=== PATIENT | female | born 1940 ===

== ENCOUNTER 2017-09-21 15:10 | Inpatient (IN) | payer MEDICARE, MEDICAID ==
[2017-09-21 15:10] VITALS: BMI 37.8
--- NOTE | 2017-09-21 16:17 | ED PDOC ---
HPI: SOB/CHF/COPD Time Seen by Provider: 09/21/17 15:39 Chief Complaint (Nursing): Shortness Of Breath Chief Complaint (Provider): Shortness of breath History Per: Patient History/Exam Limitations: no limitations Onset/Duration Of Symptoms: Persistent (2 weeks) Current Symptoms Are (Timing): Still Present Additional Complaint(s): 77yo female, with history of hypertension, CAD, diabetes, obesity, PVD, and surgical history of CABG, appendectomy and cholecystectomy, presents to ED for evaluation of shortness of breath ongoing for the past 2 weeks. Patient states she initially thought the symptoms were due to an allergic reaction and she was evaluated at the clinic, and given allergy medications along with an inhaler. Patient presents to ED today due to worsening shortness of breath even with taking the medications. She also reports bodyaches, a productive cough with clear sputum and reports associated chills and subjective fever as well. Patient also has chronic left leg swelling due to arterial insufficiency; patient states the swelling has mildly worsened as well. She denies any chest pain, rhinorrhea, hemoptysis, or sore throat. She has no other complaints. Past Medical History Reviewed: Historical Data, Nursing Documentation, Vital Signs Vital Signs: Last Vital Signs Temp 98.4 F 09/21/17 21:07 Pulse 61 09/21/17 21:07 Resp 19 09/21/17 21:07 BP 152/65 H 09/21/17 21:07 Pulse Ox 100 09/21/17 21:07 - Medical History PMH: CAD, COPD, Diabetes, HTN - Surgical History Surgical History: Appendectomy, CABG (x4), Cholecystectomy - Family History Family History: States: Unknown Family Hx - Social History Current smoker - smoking cessation education provided: No Alcohol: None Drugs: Denies - Home Medications Home Medications: Ambulatory Orders Medication Instructions Recorded ALPRAZolam [Xanax] 0.25 mg PO Q12 PRN 09/21/17 Amiodarone [Cordarone] 200 mg PO Q12 09/21/17 Atorvastatin [Lipitor] 20 mg PO HS 09/21/17 Budesonide/Formoterol Fumarate 2 puff IH Q12 09/21/17 [Symbicort 160-4.5 Mcg Inhaler] Clopidogrel [Plavix] 75 mg PO DAILY 09/21/17 Docusate [Colace] 100 mg PO DAILY PRN 09/21/17 Ergocalciferol (Vitamin D2) 50,000 unit PO TH 09/21/17 [Vitamin D2] Icosapent Ethyl [Vascepa] 1 gm PO Q12 09/21/17 Insulin Aspart, Recombinant 30 unit SC BID 09/21/17 [Novolog] Insulin Glargine, Recombina 40 unit SC HS 09/21/17 [Lantus] Iron Fumarate/Vit C/Vit B12/FA 1 cap PO DAILY 09/21/17 [Hematogen Forte Softgel] Levocetirizine Dihydrochloride 5 mg PO DAILY PRN 09/21/17 [Xyzal] Levothyroxine [Synthroid] 100 mcg PO DAILY 09/21/17 MetFORMIN [glucoPHAGE] 1,000 mg PO BID 09/21/17 Valsartan/Hydrochlorothiazide 1 tab PO DAILY 09/21/17 [Diovan Hct 160-25 mg Tablet] Zolpidem [Ambien] 10 mg PO HS 09/21/17 amLODIPine [Norvasc] 2.5 mg PO DAILY 09/21/17 - Allergies Allergies/Adverse Reactions: Allergies Allergy/AdvReac Type Severity Reaction Status Date / Time ciprofloxacin [From Cipro] Allergy RASH Verified 09/21/17 15:12 ciprofloxacin HCl Allergy RASH Verified 09/21/17 15:12 [From Cipro] Review of Systems ROS Statement: Except As Marked, All Systems Reviewed And Found Negative (as per HPI) Constitutional: Positive for: Fever (subjective), Chills ENT: Negative for: Nose Discharge, Throat Pain Cardiovascular: Negative for: Chest Pain Respiratory: Positive for: Cough, Shortness of Breath, Sputum. Negative for: Hemoptysis Musculoskeletal: Positive for: Other (left leg swelling) Physical Exam - Reviewed Nursing Documentation Reviewed: Yes Vital Signs Reviewed: Yes - Physical Exam Appears: Positive for: Non-toxic, In Acute Distress (mild respiratory distress) Head Exam: Positive for: ATRAUMATIC, NORMAL INSPECTION, NORMOCEPHALIC Skin: Positive for: Warm, Dry Respiratory: Positive for: Other (tachypneic) Pulses-Dorsalis Pedis (L): 0 (unable to palpate DP pulse) Pulses-Post. Tibialis (L): 0 (Unable to palpate PT pulse) Extremity: Positive for: Pedal Edema (non-pitting edema with yury erythema notred to left lower extremity), Capillary Refill (<2 seconds), Other (light touches intact left lower extremity) Neurologic/Psych: Positive for: Alert, Oriented - Laboratory Results Result Diagrams: 09/21/17 16:08 09/21/17 16:08 - ECG O2 Sat by Pulse Oximetry: 98 Medical Decision Making Medical Decision Making: Impression: Shortness of breath Differential diagnosis includes but not limited to: CHF, pneumonia, PE, influenza, bronchitis Plan: -- Labs -- CXR -- EKG -- Rapid Flu -- US Duplex venous left lower extremity -- US Duplex arterial left lower extremity 16:35 CXR FINDINGS: LUNGS: Vague homogeneous opacity overlying the left crispin thorax without complete obscuration left hemidiaphragm noted PLEURA: No pneumothorax. Small bilateral pleural effusions possible. Layering left pleural effusion not excluded. Left pleural parenchymal thickening seen on and the left lung base are all considerations. Summation of soft tissues also considerations patient's large body habitus. CARDIOVASCULAR: Cardiomegaly. Mild pulmonary venous congestion- the latter slightly increased since the prior exam. Midline sternotomy noted. OSSEOUS STRUCTURES: Midline sternotomy bilateral shoulder arthrosis VISUALIZED UPPER ABDOMEN: Normal. OTHER FINDINGS: None. IMPRESSION: Cardiomegaly and pulmonary venous congestion. Differential considerations for vague homogeneous increased density overlying the left lung base as above 18:10 Left lower extrm US Findings: There is normal flow, compressibility, and augmentation of the left common femoral, femoral, and popliteal veins. The left posterior tibial veins appear patent. Impression: No evidence of deep venous thrombosis in the left lower extremity. 20:[address] FINDINGS: LIMITATIONS: Artifact related to the patient's body habitus. Mild to moderate respiratory motion artifact. PULMONARY ARTERIES: Main pulmonary artery segment is mildly enlarged, a finding which can be a sign of pulmonary hypertension. This finding was also seen on the prior CT. Contrast opacification of the pulmonary arteries is adequate, and there are no filling defects seen to suggest pulmonary embolism. AORTA: Exam is nondiagnostic for the detection of aortic dissection because of suboptimal enhancement of the aorta. No evidence of thoracic aortic aneurysm. LUNGS: Findings suspicious for mild pulmonary vascular congestion. There is subtle, patchy groundglass density and smooth interlobular septal thickening in the upper lungs bilaterally. Small amount of dense consolidation in the posterior lung bases, abutting the pleural effusions bilaterally, most likely representing compressive atelectasis. PLEURAL SPACE: Small to moderate bilateral pleural effusions. No pneumothorax is seen. HEART: Heart appears mildly to moderately enlarged. Sternotomy wires and multiple mediastinal surgical clips noted, most likely from prior CABG. No evidence of significant pericardial effusion. BONES/JOINTS: No acute bony abnormality identified. SOFT TISSUES: Ventral hernia, in the midline anterior abdominal wall, with a wide neck, containing the distal stomach. No associated gastric obstruction. LYMPH NODES: No evidence of diffuse lymphadenopathy. GALLBLADDER AND BILE DUCTS: Mild biliary ductal dilatation, most likely related to the post cholecystectomy state. No radiopaque common bile duct stones are visualized. Recommend correlation with LFTs as clinically indicated. IMPRESSION: - Findings suspicious for mild pulmonary vascular congestion. - [id number] bilateral pleural effusions. - Otherwise, no evidence of significant acute process. - Cardiomegaly. - Findings suspicious for underlying pulmonary hypertension, with no evidence of pulmonary embolism. - See above for remaining findings. 21:15 --Patient's lab demonstrate anemia, cardiac enzymes negative. CT reviewed and consistent with CHF. Discussed with Dr. Pond, family practice resident, for hospitalization. Scribe Attestation: Documented by Marisa Garcia acting as a scribe for Lynda Ramos MD. Provider Attestation: All medical record entries made by the Scribe were at my direction and personally dictated by me. I have reviewed the chart and agree that the record accurately reflects my personal performance of the history, physical exam, medical decision making, and the department course for this patient. I have also personally directed, reviewed, and agree with the discharge instructions and disposition. Disposition - Disposition Forms: [employer] (German)
[2017-09-21 16:22] LABS: ABG ALLEN TEST YES; ARTERIAL BLOOD GAS HCO3 26.4 mmol/L (21-28); ARTERIAL BLOOD GAS O2 SAT 97.4 % (95-98); ARTERIAL BLOOD GAS PCO2 40 mm/Hg (35-45); ARTERIAL BLOOD GAS PH 7.43 (7.35-7.45); ARTERIAL BLOOD GAS PO2 76 mm/Hg (80-100); ARTERIAL BLOOD GAS TCO2 27.7 mmol/L (22-28)
--- NOTE | 2017-09-21 16:50 | RAD ---
HISTORY: sob COMPARISON: 09/16/2016 FINDINGS: LUNGS: Vague homogeneous opacity overlying the left crispin thorax without complete obscuration left hemidiaphragm noted PLEURA: No pneumothorax. Small bilateral pleural effusions possible. Layering left pleural effusion not excluded. Left pleural parenchymal thickening seen on and the left lung base are all considerations. Summation of soft tissues also considerations patient's large body habitus. CARDIOVASCULAR: Cardiomegaly. Mild pulmonary venous congestion- the latter slightly increased since the prior exam. Midline sternotomy noted. OSSEOUS STRUCTURES: Midline sternotomy bilateral shoulder arthrosis VISUALIZED UPPER ABDOMEN: Normal. OTHER FINDINGS: None. IMPRESSION: Cardiomegaly and pulmonary venous congestion. Differential considerations for vague homogeneous increased density overlying the left lung base as above
[2017-09-21 17:04] LABS: BASO # 0.1 K/uL (0.0-0.2); BASO % 0.9 % (0.0-2.0); EOS # 0.3 K/uL (0.0-0.7); EOS % 3.3 % (0.0-4.0); LYMPH # 1.9 K/uL (1.0-4.3); LYMPH % 20.8 % (20.0-40.0); MEAN CELL VOLUME 77.3 fl (81.0-99.0); MEAN CORPUSCULAR HEMOGLOBIN 22.9 pg (27.0-31.0); MEAN CORPUSCULAR HGB CONC 29.6 g/dL (33.0-37.0); MEAN PLATELET VOLUME 7.8 fl (7.2-11.7); MONO # 0.7 K/uL (0.0-0.8); MONO % 7.5 % (0.0-10.0); NEUT # 6.1 K/uL (1.8-7.0); NEUT % 67.5 % (50.0-75.0); NRBC % 0.2 % (0.0-0.0); RBC 3.94 Mil/uL (3.80-5.20)
[2017-09-21 17:23] LABS: ALB/GLOB RATIO 0.9 (1.0-2.1); ALBUMIN 3.7 g/dL (3.5-5.0); ALT/SGPT 30 U/L (9-52); AST/SGOT 33 U/L (14-36); BLOOD UREA NITROGEN 15 mg/dl (7-17); GFR AFRICAN-AMERICAN > 60; GFR NON-AFRICAN AMERICAN > 60
[2017-09-21 17:23] LABS: INR 1.1 (0.9-1.2); PARTIAL THROMBOPLASTIN TIME 30.5 Seconds (25.6-37.1); PROTHROMBIN TIME 12.1 Seconds (9.8-13.1)
[2017-09-21 17:32] LABS: B-TYPE NATRIURETIC PEPTIDE 703 pg/ml (0-900)
--- NOTE | 2017-09-21 18:12 | US ---
Left lower extremity ultrasound. Indication: Leg swelling Technique: Duplex ultrasound evaluation of the left lower extremity Comparison: Left lower extremity ultrasound performed 04/14/16 Findings: There is normal flow, compressibility, and augmentation of the left common femoral, femoral, and popliteal veins. The left posterior tibial veins appear patent. Impression: No evidence of deep venous thrombosis in the left lower extremity.
[2017-09-21] MEDS ORDERED: Iodixanol 320 MG/ML 100 ML BOTTLE IV ONE (18:32)
[2017-09-21] MEDS ORDERED: Sodium Chloride 0.9% 100 ML ONE (18:32)
--- NOTE | 2017-09-21 20:56 | CT ---
EXAM: CT Angiography Chest With Intravenous Contrast EXAM DATE/TIME: 09/21/2017 5:50 PM CLINICAL HISTORY: 77 years old, female; Signs and symptoms; Shortness of breath; Additional info: SOB R/O pe TECHNIQUE: Axial computed tomographic angiography images of the chest with intravenous contrast using pulmonary embolism protocol. All CT scans at this facility use one or more dose reduction techniques, viz.: automated exposure control; ma/kV adjustment per patient size (including targeted exams where dose is matched to indication; i.e. head); or iterative reconstruction technique. MIP reconstructed images were created and reviewed. Coronal and sagittal reformatted images were created and reviewed. CONTRAST: 95 mL of visipaque 320 administered intravenously. COMPARISON: Prior CT chest of 09/17/2013 FINDINGS: LIMITATIONS: Artifact related to the patient's body habitus. Mild to moderate respiratory motion artifact. PULMONARY ARTERIES: Main pulmonary artery segment is mildly enlarged, a finding which can be a sign of pulmonary hypertension. This finding was also seen on the prior CT. Contrast opacification of the pulmonary arteries is adequate, and there are no filling defects seen to suggest pulmonary embolism. AORTA: Exam is nondiagnostic for the detection of aortic dissection because of suboptimal enhancement of the aorta. No evidence of thoracic aortic aneurysm. LUNGS: Findings suspicious for mild pulmonary vascular congestion. There is subtle, patchy groundglass density and smooth interlobular septal thickening in the upper lungs bilaterally. Small amount of dense consolidation in the posterior lung bases, abutting the pleural effusions bilaterally, most likely representing compressive atelectasis. PLEURAL SPACE: Small to moderate bilateral pleural effusions. No pneumothorax is seen. HEART: Heart appears mildly to moderately enlarged. Sternotomy wires and multiple mediastinal surgical clips noted, most likely from prior CABG. No evidence of significant pericardial effusion. BONES/JOINTS: No acute bony abnormality identified. SOFT TISSUES: Ventral hernia, in the midline anterior abdominal wall, with a wide neck, containing the distal stomach. No associated gastric obstruction. LYMPH NODES: No evidence of diffuse lymphadenopathy. GALLBLADDER AND BILE DUCTS: Mild biliary ductal dilatation, most likely related to the post cholecystectomy state. No radiopaque common bile duct stones are visualized. Recommend correlation with LFTs as clinically indicated. IMPRESSION: - Findings suspicious for mild pulmonary vascular congestion. - [id number] bilateral pleural effusions. - Otherwise, no evidence of significant acute process. - Cardiomegaly. - Findings suspicious for underlying pulmonary hypertension, with no evidence of pulmonary embolism. - See above for remaining findings.
--- NOTE | 2017-09-21 21:43 | CP.PCM.HP ---
History of Present Illness - History of Present Illness History of Present Illness: "i cant breathe" 77 y/o morbidly obese female with PMHx remarkable for moderate peristent asthma , CAD s/p quad CABG, HTN, HLD, IDDM2, OA, and hypothyroidism presented to [facility] ED for evaluation of worsening SOB. Pt reports SOB started approx 1 week ago, without any inciting illness or event. She reports it gradually worsened and she was using her inhaler more and more often. She also reports that with the SOB, she developed a phelgmous sounding cough, with scant white phelgm production that would appear after long coughing fits. She reports that today, she the SOB was not improved with her inhaler, so she came in for evaluation. She denies any recent sick contacts, URI symptoms, fever/chills, headaches, changes in vision, CP/palpitations, orthopnea, exterional CP, paroxysmal nocturnal dyspnea, N/V/D/C, urinary symptoms, numbness/tingling. PMD: [facility], last visit 01/2017 -Cardio: John PMHx: Moderate Persistent asthma, hypothyroidism, CAD s/p CABG, HTN, IDDM2, HLD , OA, chronic left calf pain Meds: levothyroxine 88mcg, Lantus solostar 15 units SC HS, Novolog 7 units SC TID, Diovan HCT 160/25 QD, Lipitor 20mg QD, Plavix 75mg QD Metformin 1000mg BID, Monetelukast 10mg HS, ProAir HFA 108 ALL: Ciprofloxaxin (RASH) PSurgHx: Quad CABG, appendectomy, cholescteomy, SocialHx: hx of 1/3 PPD >20 years, quit several months ago. denies ETOH/Drug abuse FamilyHx: mother/father/brother all NH around 68 years LMP: >30 years ago Next of Kin: Daughter, be Code Status: DNI Present on Admission - Present on Admission Any Indicators Present on Admission: No History of DVT/PE: No History of Uncontrolled Diabetes: No Review of Systems - Constitutional Constitutional: absent: As Per HPI, Anorexia, Chills, Daytime Sleepiness, Excessive Sweating, Fatigue, Fever, Frequent Falls, Headache, Increased Appetite , Lethargy, Malaise, Night Sweats, Snoring, Sleep Apnea, Weight Gain, Weight Loss, Weakness, Other - EENT Eyes: absent: As Per HPI, Blind Spots, Blurred Vision, Change in Vision, Decreased Night Vision, Diplopia, Discharge, Dry Eye, Exophthalmos, Floaters, Irritation, Itchy Eyes, Loss of Peripheral Vision, Pain, Photophobia, Requires Corrective Lenses, Sees Flashes, Spots in Vision, Tunnel Vision, Other Visual Disturbances, Loss of Vision, Other Ears: absent: As Per HPI, Decreased Hearing, Ear Discharge, Ear Pain, Tinnitus, Abnormal Hearing, Disequilibrium, Dizziness, Other Nose/Mouth/Throat: absent: As Per HPI, Epistaxis, Nasal Congestion, Nasal Discharge, Nasal Obstruction, Nasal Trauma, Nose Pain, Post Nasal Drip, Sinus Pain, Sinus Pressure, Bleeding Gums, Change in Voice, Dental Pain, Dry Mouth, Dysphagia, Halitosis, Hoarsness, Lip Swelling, Mouth Lesions, Mouth Pain, Odynophagia, Sore Throat, Throat Swelling, Tongue Swelling, Facial Pain, Neck Pain, Neck Mass, Other - Cardiovascular Cardiovascular: absent: As Per HPI, Acrocyanosis, Chest Pain, Chest Pain at Rest , Chest Pain with Activity, Claudication, Diaphoresis, Dyspnea, Dyspnea on Exertion, Edema, Irregular Heart Rhythm, Pain Radiating to Arm/Neck/Jaw, Leg Edema, Leg Ulcers, Lightheadedness, Orthopnea, Palpitations, Paroxysmal Nocturnal Dyspnea, Pedal Edema, Radiating Pain, Rapid Heart Rate, Slow Heart Rate, Syncope, Other - Respiratory Respiratory: Cough, Dyspnea, Dyspnea on Exertion, Wheezing, Excessive Mucous Production. absent: As Per HPI, Hemoptysis, Snoring, Stridor, Pain on Inspiration, Chest Congestion, Change in Mucous Color, Pain with Coughing, Other - Gastrointestinal Gastrointestinal: absent: As Per HPI, Abdominal Pain, Belching, Bloating, Change in Bowel Habits, Change in Stool Character, Coffee Ground Emesis, Constipation, Cramping, Diarrhea, Dyspepsia, Dysphagia, Early Satiety, Excessive Flatus, Fecal Incontinence, Heartburn, Hematemesis, Hematochezia, Loose Stools, Melena, Nausea, Odynophagia, Temesmus, Vomiting, Other - Musculoskeletal Musculoskeletal: Arthralgias. absent: As Per HPI, Abnormal Gait, Atrophy, Back Pain, Deformity, Joint Swelling, Limited Range of Motion, Loss of Height, Muscle Cramps, Muscle Weakness, Myalgias, Neck Pain, Numbness, Radiating Pain into Limb, Stiffness, Tingling, Other - Integumentary Integumentary: absent: As Per HPI, Acne, Alopecia, Bleeding Lesions, Change in Hair, Change in Nails, Change in Pigmentation, Changing Lesions, Dry Skin, Erythema, Furuncle, Hirsutism, Lesions, New Lesions, Non-Healing Lesions, Photosensitivity, Pruritus, Rash, Skin Pain, Skin Ulcer, Sores, Striae, Swelling , Unusual Bruising, Wounds, Jaundice, Other - Neurological Neurological: absent: As Per HPI, Abnormal Gait, Abnormal Hearing, Abnormal Movements, Abnormal Speech, Behavioral Changes, Burning Sensations, Confusion, Convulsions, Disequilibrium, Dizziness, Numbness, Focal Weakness, Frequent Falls , Headaches, Lack of Coordination, Loss of Vision, Memory Loss, Paresthesias, Radicular Pain, Restless Legs, Sensory Deficit, Syncope, Tingling, Tremor, Vertigo, Weakness, Other Visual Disturbances, Other Past Patient History - Tetanus Immunizations Tetanus Immunization: Unknown - Past Social History Smoking Status: Current Some Days Smoker Alcohol: None Drugs: Denies Home Situation {Lives}: With Family - CARDIAC Hx Hypertension: Yes - PULMONARY Hx Chronic Obstructive Pulmonary Disease (COPD): Yes - ENDOCRINE/METABOLIC Hx Endocrine Disorders: Yes Hx Diabetes Mellitus Type 2: Yes - PSYCHIATRIC Hx Substance Use: No - SURGICAL HISTORY Hx Appendectomy: Yes Hx Cholecystectomy: Yes Hx Coronary Artery Bypass Graft: Yes (x4) - ANESTHESIA Hx Anesthesia: Yes Hx Anesthesia Reactions: No Meds Allergies/Adverse Reactions: Allergies Allergy/AdvReac Type Severity Reaction Status Date / Time ciprofloxacin [From Cipro] Allergy RASH Verified 09/21/17 15:12 ciprofloxacin HCl Allergy RASH Verified 09/21/17 15:12 [From Cipro] Physical Exam - Constitutional Appears: Non-toxic, No Acute Distress - Head Exam Head Exam: ATRAUMATIC, NORMAL INSPECTION, NORMOCEPHALIC - Eye Exam Eye Exam: EOMI, Normal appearance Pupil Exam: NORMAL ACCOMODATION, PERRL - ENT Exam ENT Exam: Mucous Membranes Moist, Normal Exam - Neck Exam Neck exam: Positive for: Full Rom. Negative for: Lymphadenopathy - Respiratory Exam Respiratory Exam: Accessory Muscle Use, Decreased Breath Sounds, Prolonged Expiratory Phase, Wheezes. absent: Chest Wall Tenderness, Clear to Auscultation Bilateral, Rales, Rhonchi, Respiratory Distress - Cardiovascular Exam Cardiovascular Exam: REGULAR RHYTHM, RRR, +S1, +S2. absent: Gallop, Irregular Rhythm, JVD, Rubs, Systolic Murmur - GI/Abdominal Exam GI & Abdominal Exam: Normal Bowel Sounds, Soft. absent: Tenderness Additional comments: truncal obesity - Extremities Exam Extremities exam: Positive for: normal capillary refill, normal inspection, tenderness (left popliteal fossa, pt states this is chronic, without acute change), pedal pulses present. Negative for: calf tenderness, pedal edema - Back Exam Back exam: NORMAL INSPECTION. absent: CVA tenderness (L), CVA tenderness (R) - Neurological Exam Neurological exam: Alert, CN II-XII Intact, Normal Gait, Oriented x3, Reflexes Normal - Psychiatric Exam Psychiatric exam: Normal Affect, Normal Mood - Skin Skin Exam: Dry, Intact, Normal Color, Warm Results - Vital Signs Recent Vital Signs: Last Vital Signs Temp 98.4 F 09/21/17 21:07 Pulse 61 09/21/17 21:07 Resp 19 09/21/17 21:07 BP 152/65 H 09/21/17 21:07 Pulse Ox 98 09/21/17 21:16 - Labs Result Diagrams: 09/21/17 16:08 09/21/17 16:08 Labs: Laboratory Results - last 24 hr 09/21/17 09/21/17 09/21/17 16:01 16:08 16:08 WBC 9.0 RBC 3.94 Hgb 9.0 L D Hct 30.4 L MCV 77.3 L D MCH 22.9 L MCHC 29.6 L RDW 21.0 H Plt Count 375 MPV 7.8 Neut % (Auto) 67.5 Lymph % (Auto) 20.8 Ray % (Auto) 7.5 Eos % (Auto) 3.3 Baso % (Auto) 0.9 Neut # (Auto) 6.1 Lymph # (Auto) 1.9 Ray # (Auto) 0.7 Eos # (Auto) 0.3 Baso # (Auto) 0.1 PT INR APTT D-Dimer, Quantitative pCO2 pO2 HCO3 ABG pH ABG Total CO2 ABG O2 Saturation ABG Base Excess Chao Test ABG Potassium A-a O2 Difference Glucose Lactate FiO2 Sodium 140 Potassium 4.3 Chloride 99 Carbon Dioxide 24 Anion Gap 21 H BUN 15 Creatinine 0.7 Est GFR ( Amer) > 60 Est GFR (Non-Af Amer) > 60 POC Glucose (mg/dL) 257 H Random Glucose 289 H Calcium 9.0 Phosphorus 2.5 Magnesium 1.7 Total Bilirubin 0.6 AST 33 ALT 30 Alkaline Phosphatase 137 H Troponin I < 0.0120 NT-Pro-B Natriuret Pep 703 Total Protein 7.7 Albumin 3.7 Globulin 4.0 H Albumin/Globulin Ratio 0.9 L Arterial Blood Potassium Influenza Typ A,B (EIA) Blood Type Antibody Screen BBK History Checked 09/21/17 09/21/17 09/21/17 16:08 16:14 16:32 WBC RBC Hgb Hct MCV MCH MCHC RDW Plt Count MPV Neut % (Auto) Lymph % (Auto) Ray % (Auto) Eos % (Auto) Baso % (Auto) Neut # (Auto) Lymph # (Auto) Ray # (Auto) Eos # (Auto) Baso # (Auto) PT INR APTT D-Dimer, Quantitative pCO2 40 pO2 76 L HCO3 26.4 ABG pH 7.43 ABG Total CO2 27.7 ABG O2 Saturation 97.4 ABG Base Excess 2.0 Chao Test Yes ABG Potassium 4.2 A-a O2 Difference 131.0 Glucose 279 H Lactate 2.2 H FiO2 36.0 Sodium 137.0 Potassium Chloride 106.0 Carbon Dioxide Anion Gap BUN Creatinine Est GFR ( Amer) Est GFR (Non-Af Amer) POC Glucose (mg/dL) Random Glucose Calcium Phosphorus Magnesium Total Bilirubin AST ALT Alkaline Phosphatase Troponin I NT-Pro-B Natriuret Pep Total Protein Albumin Globulin Albumin/Globulin Ratio Arterial Blood Potassium 4.2 Influenza Typ A,B (EIA) Negative for flu a/b Blood Type O POSITIVE Antibody Screen Negative BBK History Checked Patient has bt 09/21/17 17:00 WBC RBC Hgb Hct MCV MCH MCHC RDW Plt Count MPV Neut % (Auto) Lymph % (Auto) Ray % (Auto) Eos % (Auto) Baso % (Auto) Neut # (Auto) Lymph # (Auto) Ray # (Auto) Eos # (Auto) Baso # (Auto) PT 12.1 INR 1.1 APTT 30.5 D-Dimer, Quantitative 343 H pCO2 pO2 HCO3 ABG pH ABG Total CO2 ABG O2 Saturation ABG Base Excess Chao Test ABG Potassium A-a O2 Difference Glucose Lactate FiO2 Sodium Potassium Chloride Carbon Dioxide Anion Gap BUN Creatinine Est GFR ( Amer) Est GFR (Non-Af Amer) POC Glucose (mg/dL) Random Glucose Calcium Phosphorus Magnesium Total Bilirubin AST ALT Alkaline Phosphatase Troponin I NT-Pro-B Natriuret Pep Total Protein Albumin Globulin Albumin/Globulin Ratio Arterial Blood Potassium Influenza Typ A,B (EIA) Blood Type Antibody Screen BBK History Checked Assessment & Plan - Assessment and Plan (Free Text) Assessment: 77 y/o female with extensive medical history admitted for worsening SOB. Plan: 1) SOB/Cough -COPD? Asthma? CHF? Pulmonary HTN? -afebrile, no leukocytosis, no infiltrate on imaging -CT: b/l pleural effusion, no PE, cardiomegaly, pulmonary vascular congestion, and suspected pulmonary hypertension -diffuse wheezing on lung exam, with decreased O2 saturation and decreased breathe sounds bilaterally -known hx of moderate persistent asthma, but prolonged tobacco use as well -maintain POX 90-92% -2L NC -Solu-medrol 125mg IVP -Duo-nebs Q4H -Pro-BNP: 700, pt had prior recording of 1150 -Troponin x2: wnl, third value pending -monitor vitals -consider ECHO in AM as no hx of echo being performed -ABG: pending -blood/sputum cultures pending -repeat CBC/CMP in AM 2) IDDM2 -c/w home meds as ordered -monitor blood sugars -hypoglycemia protocol -Lispro coverage scale 3) Hypertension -monitor vitals -c/w home meds as ordered 4) Atrial Fibrillation -rate controlled, EKG reviewed, NSR with 1st degree AV block, QTc prolongation at 500 ms, no acute changes -c/w amiodarone as ordered -c/w plavix as ordered 5) Hypothyroidism -c/w home meds as ordered 6) Diet -heart healthy, low carb 7) Prophylaxis -Lovenox 50mg SC QD 2/2 to BMI 8) Code Status: -DNI
[2017-09-21] MEDS ORDERED: Albuterol-Ipratrop 3 mg / 0.5 (3 ml) UD INH PRN (21:45)
[2017-09-21] MEDS ORDERED: Azithromycin 500 MG in Sodium Chloride 0.9% 250 ML IVPB SCH (21:47)
[2017-09-21] MEDS ORDERED: Sodium Chloride 3% for Inhalation 4 ML VIAL.NEB IH PRN (21:53)
[2017-09-21] MEDS ORDERED: Glucagon Recombinant 1 mg Inj IM PRN (22:00)
[2017-09-21] MEDS ORDERED: Dextrose 50% SYRINGE Inj (50 ml) IV PRN (22:00)
[2017-09-21] MEDS ORDERED: INSULIN GLARGINE RECOMBINA 40 UNIT SC SCH (22:00)
[2017-09-21] MEDS: Insulin Lispro (humaLOG) 100 Units/ml Inj SC SCH (22:32)
[2017-09-22] MEDS: Insulin Lispro (humaLOG) 100 Units/ml Inj SC SCH ×4 (06:30→22:00)
[2017-09-22 07:15] LABS: HEMOGLOBIN 9.1 g/dL (12.0-16.0); MEAN CELL VOLUME 75.1 fl (81.0-99.0); MEAN CORPUSCULAR HEMOGLOBIN 23.1 pg (27.0-31.0); MEAN CORPUSCULAR HGB CONC 30.7 g/dL (33.0-37.0); RBC 3.94 Mil/uL (3.80-5.20)
--- NOTE | 2017-09-22 07:55 | CP.PCM.PN ---
Subjective - Date & Time of Evaluation Date of Evaluation: 09/22/17 Time of Evaluation: 09:35 - Subjective Subjective: Patient seen and evaluated at bedside this am; no acute events overnight. States that her breathing is improving, feels better. Denies chest pain, abdominal pain, leg pain. Objective - Vital Signs/Intake and Output Vital Signs (last 24 hours): Temp Pulse Resp BP Pulse Ox 97.8 F 71 18 146/56 L 93 L 09/22/17 04:58 09/22/17 04:58 09/22/17 04:58 09/22/17 04:58 09/22/17 04:58 - Medications Medications: Current Medications Albuterol/Ipratropium (Duoneb 3 Mg/0.5 Mg (3 Ml) Ud) 3 ml INH RQ4 PRN PRN Reason: Shortness of Breath Alprazolam (Xanax) 0.25 mg PO Q12 PRN PRN Reason: Anxiety Stop: 09/28/17 21:55 Amiodarone HCl (Cordarone) 200 mg PO Q12 [facility] Amlodipine Besylate (Norvasc) 2.5 mg PO DAILY [facility] Atorvastatin Calcium (Lipitor) 20 mg PO HS [facility] Last Admin: 09/22/17 00:43 Dose: Not Given Clopidogrel Bisulfate (Plavix) 75 mg PO DAILY [facility] Dextrose (Dextrose 50% Inj) 0 ml IV STAT PRN; Protocol PRN Reason: Hypoglycemia Protocol Dextrose (Glutose 15) 0 gm PO ONCE PRN; Protocol PRN Reason: Hypoglycemia Protocol Docusate Sodium (Colace Liquid) 100 mg NG BID PRN PRN Reason: Constipation Docusate Sodium (Colace) 100 mg PO DAILY PRN PRN Reason: Constipation Enoxaparin Sodium (Lovenox) 50 mg SC DAILY JAN PRN Reason: Protocol Ergocalciferol (Drisdol 50,000 Intl Units Cap) 1 cap PO TH JAN Glucagon (Glucagen Diagnostic Kit) 0 mg IM STAT PRN; Protocol PRN Reason: Hypoglycemia Protocol Home Med (Iron Fumarate/Vit C/Vit B12/Fa [Hematogen Forte Softgel]) 1 cap PO DAILY [facility] Hydrochlorothiazide (Hydrodiuril) 25 mg PO DAILY [facility] Insulin Detemir (Levemir) 30 units SC HS [facility] Insulin Human Lispro (Humalog) 0 units SC ACHS JAN PRN Reason: Protocol Last Admin: 09/22/17 06:30 Dose: 6 units Levothyroxine Sodium (Synthroid) 100 mcg PO DAILY@0630 [facility] Loratadine (Claritin) 10 mg PO DAILY PRN PRN Reason: Allergy symptoms Metformin HCl (Glucophage) 1,000 mg PO BID [facility] Ghfnc-7-Hzyl Ethyl Esters (Lovaza) 1 gm PO Q12 [facility] Ondansetron HCl (Zofran Inj) 4 mg IVP Q6 PRN PRN Reason: Nausea/Vomiting Valsartan (Diovan) 160 mg PO DAILY JAN Zolpidem Tartrate (Ambien) 10 mg PO HS [facility] Last Admin: 09/22/17 00:42 Dose: 10 mg - Labs Labs: 09/22/17 06:00 09/21/17 16:08 PT 12.1 Seconds (9.8-13.1) 09/21/17 17:00 INR 1.1 (0.9-1.2) 09/21/17 17:00 APTT 30.5 Seconds (25.6-37.1) 09/21/17 17:00 - Constitutional Appears: Non-toxic, No Acute Distress - Head Exam Head Exam: NORMAL INSPECTION - Eye Exam Eye Exam: Normal appearance - ENT Exam ENT Exam: Mucous Membranes Moist - Respiratory Exam Respiratory Exam: Decreased Breath Sounds, NORMAL BREATHING PATTERN. absent: Respiratory Distress - Cardiovascular Exam Cardiovascular Exam: REGULAR RHYTHM, +S1, +S2 - GI/Abdominal Exam GI & Abdominal Exam: Soft, Normal Bowel Sounds. absent: Tenderness - Extremities Exam Extremities Exam: Normal Inspection. absent: Calf Tenderness, Pedal Edema - Neurological Exam Neurological Exam: Alert, Awake - Skin Skin Exam: Dry, Intact, Warm Assessment and Plan - Assessment and Plan (Free Text) Assessment: 77 y/o morbidly obese female with PMHx of moderate peristent asthma, CAD s/p quad CABG, HTN, HLD, IDDM2, OA, hypothyroidism admitted for worsening SOB, possibly due to asthma vs CHF vs pulmonary htn. Clinically improving. Plan: 1) SOB/Cough - asthma exacerbation vs CHF vs Pulmonary HTN - Improved - Afebrile, no leukocytosis, no infiltrate on imaging - CT: b/l pleural effusion, no PE, cardiomegaly, pulmonary vascular congestion, and suspected pulmonary hypertension - 2L NC - Repeat CXR - persistent cardiomegaly, CHF - s/p solu-medrol 125mg IVP - Duo-nebs Q4H - Troponin neg x3 - monitor for acute changes 2) IDDM2 -c/w home meds as ordered -monitor blood sugars -hypoglycemia protocol -Lispro coverage scale 3) Hypertension -monitor vitals -c/w home meds as ordered 4) Atrial Fibrillation -rate controlled, EKG reviewed, NSR with 1st degree AV block, QTc prolongation at 500 ms, no acute changes -c/w amiodarone as ordered -c/w plavix as ordered 5) Hypothyroidism -c/w home meds as ordered 6) Diet -heart healthy, low carb 7) Prophylaxis -Lovenox 50mg SC QD 2/2 to BMI
[2017-09-22] MEDS: Levothyroxine 100 MCG TAB PO SCH (08:19)
[2017-09-22] MEDS: Omega-3-Acid Ethyl Esters 1 GM Cap PO SCH ×2 (08:21→21:45)
[2017-09-22] MEDS: Enoxaparin 60 mg Syringe SC SCH (08:22)
[2017-09-22 08:25] LABS: ALB/GLOB RATIO 0.9 (1.0-2.1); ALBUMIN 3.8 g/dL (3.5-5.0); ALT/SGPT 27 U/L (9-52); AST/SGOT 22 U/L (14-36); BLOOD UREA NITROGEN 17 mg/dl (7-17); CALCIUM 9.1 mg/dL (8.4-10.2); GFR AFRICAN-AMERICAN > 60; GFR NON-AFRICAN AMERICAN > 60
--- NOTE | 2017-09-22 10:26 | US ---
PROCEDURE: Duplex ultrasound of the left lower extremity arteries. HISTORY: leg swelling and h/o insufficiency r/o occlusion COMPARISON: None available. TECHNIQUE: Grayscale and duplex Doppler evaluation of the left common femoral, superficial femoral, popliteal, posterior tibial and dorsalis pedis arteries was performed.. FINDINGS: COMMON FEMORAL ARTERY: Patent. Maximal flow velocity of 105.0 cm/s. SUPERFICIAL FEMORAL ARTERY:Focal area of stenosis proximal left SFA. Maximal flow velocity of 241.3 cm/s. POPLITEAL ARTERY:Elevated peak systolic arterial pressures identified Maximal flow velocity of 158.5 cm/s. POSTERIOR TIBIAL ARTERY: Patent. Maximal flow velocity of 51.5 cm/s. DORSALIS PEDIS ARTERY: Patent. Maximal flow velocity of 55.3 cm/s. OTHER FINDINGS: None. IMPRESSION: Focal air active stenosis proximal left superficial femoral artery. Area of relative narrowing popliteal artery with adequate flow distally. No evidence of occlusive disease in the left lower extremity
--- NOTE | 2017-09-22 11:33 | CARD ---
APPROVED REPORT EKG Measurement Heart [id number] <Conclusion> Sinus rhythm with 1st degree AV block ST & T wave abnormality, consider lateral ischemia Abnormal ECG
--- NOTE | 2017-09-22 13:21 | CP.PCM.DIS ---
Provider - Provider Date of Admission: 09/21/17 21:11 Attending physician: Devorah Malik MD Hospital Course - Lab Results Lab Results: Most Recent Lab Values WBC 9.0 K/uL (4.8-10.8) 09/22/17 06:00 RBC 3.94 Mil/uL (3.80-5.20) 09/22/17 06:00 Hgb 9.1 g/dL (12.0-16.0) L 09/22/17 06:00 Hct 29.6 % (34.0-47.0) L 09/22/17 06:00 MCV 75.1 fl (81.0-99.0) L D 09/22/17 06:00 MCH 23.1 pg (27.0-31.0) L 09/22/17 06:00 MCHC 30.7 g/dL (33.0-37.0) L 09/22/17 06:00 RDW 20.0 % (11.5-14.5) H 09/22/17 06:00 Plt Count 364 K/uL (130-400) 09/22/17 06:00 MPV 7.8 fl (7.2-11.7) 09/21/17 16:08 Neut % (Auto) 67.5 % (50.0-75.0) 09/21/17 16:08 Lymph % (Auto) 20.8 % (20.0-40.0) 09/21/17 16:08 Morrow % (Auto) 7.5 % (0.0-10.0) 09/21/17 16:08 Eos % (Auto) 3.3 % (0.0-4.0) 09/21/17 16:08 Baso % (Auto) 0.9 % (0.0-2.0) 09/21/17 16:08 Neut # (Auto) 6.1 K/uL (1.8-7.0) 09/21/17 16:08 Lymph # (Auto) 1.9 K/uL (1.0-4.3) 09/21/17 16:08 Morrow # (Auto) 0.7 K/uL (0.0-0.8) 09/21/17 16:08 Eos # (Auto) 0.3 K/uL (0.0-0.7) 09/21/17 16:08 Baso # (Auto) 0.1 K/uL (0.0-0.2) 09/21/17 16:08 PT 12.1 Seconds (9.8-13.1) 09/21/17 17:00 INR 1.1 (0.9-1.2) 09/21/17 17:00 APTT 30.5 Seconds (25.6-37.1) 09/21/17 17:00 D-Dimer, Quantitative 343 ng/mlDDU (0-230) H 09/21/17 17:00 pCO2 40 mm/Hg (35-45) 09/21/17 16:14 pO2 76 mm/Hg (80-100) L 09/21/17 16:14 HCO3 26.4 mmol/L (21-28) 09/21/17 16:14 ABG pH 7.43 (7.35-7.45) 09/21/17 16:14 ABG Total CO2 27.7 mmol/L (22-28) 09/21/17 16:14 ABG O2 Saturation 97.4 % (95-98) 09/21/17 16:14 ABG Base Excess 2.0 mmol/L (-2.0-3.0) 09/21/17 16:14 Chao Test Yes 09/21/17 16:14 ABG Potassium 4.2 mmol/L (3.6-5.2) 09/21/17 16:14 A-a O2 Difference 131.0 mm/Hg 09/21/17 16:14 Sodium 137.0 mmol/L (132-148) 09/21/17 16:14 Chloride 106.0 mmol/L (98-107) 09/21/17 16:14 Glucose 279 mg/dL (65-105) H 09/21/17 16:14 Lactate 2.2 mmol/L (0.7-2.1) H 09/21/17 16:14 FiO2 36.0 % 09/21/17 16:14 Sodium 141 mmol/l (132-148) 09/22/17 06:00 Potassium 4.5 MMOL/L (3.6-5.0) 09/22/17 06:00 Chloride 98 mmol/L (98-107) 09/22/17 06:00 Carbon Dioxide 26 mmol/L (22-30) 09/22/17 06:00 Anion Gap 22 (10-20) H 09/22/17 06:00 BUN 17 mg/dl (7-17) 09/22/17 06:00 Creatinine 0.8 mg/dl (0.7-1.2) 09/22/17 06:00 Est GFR ( Amer) > 60 09/22/17 06:00 Est GFR (Non-Af Amer) > 60 09/22/17 06:00 POC Glucose (mg/dL) 379 mg/dL (65-110) H 09/22/17 11:27 Random Glucose 394 mg/dL (65-105) H 09/22/17 06:00 Lactic Acid 2.0 MMOL/L (0.7-2.1) 09/22/17 06:00 Calcium 9.1 mg/dL (8.4-10.2) 09/22/17 06:00 Phosphorus 2.5 mg/dl (2.5-4.5) 09/21/17 16:08 Magnesium 1.7 MG/DL (1.6-2.3) 09/21/17 16:08 Total Bilirubin 0.6 mg/dl (0.2-1.3) 09/22/17 06:00 AST 22 U/L (14-36) 09/22/17 06:00 ALT 27 U/L (9-52) 09/22/17 06:00 Alkaline Phosphatase 143 U/L (38-126) H 09/22/17 06:00 Troponin I < 0.0120 ng/mL (0.00-0.120) 09/22/17 07:19 NT-Pro-B Natriuret Pep 703 pg/ml (0-900) 09/21/17 16:08 Total Protein 7.8 G/DL (6.3-8.2) 09/22/17 06:00 Albumin 3.8 g/dL (3.5-5.0) 09/22/17 06:00 Globulin 4.0 gm/dL (2.2-3.9) H 09/22/17 06:00 Albumin/Globulin Ratio 0.9 (1.0-2.1) L 09/22/17 06:00 Arterial Blood Potassium 4.2 mmol/L (3.6-5.2) 09/21/17 16:14 Influenza Typ A,B (EIA) Negative for flu a/b (NEGATIVE) 09/21/17 16:32 Blood Type O POSITIVE 09/21/17 16:08 Antibody Screen Negative 09/21/17 16:08 BBK History Checked Patient has bt 09/21/17 16:08 Discharge Exam - Head Exam Head Exam: NORMAL INSPECTION Discharge Plan - Follow Up Plan Condition: FAIR Disposition: HOME/ ROUTINE
--- NOTE | 2017-09-22 14:05 | RAD ---
HISTORY: cough, SOB COMPARISON: September 21, 2017. TECHNIQUE: Chest PA and lateral FINDINGS: LUNGS: Pulmonary vascular congestion. PLEURA: No significant pleural effusion identified. No pneumothorax apparent. CARDIOVASCULAR: Persisting cardiomegaly/mild CHF. OSSEOUS STRUCTURES: No significant abnormalities. VISUALIZED UPPER ABDOMEN: Normal. OTHER FINDINGS: None. IMPRESSION: Mild CHF. No acute interval changes.
[2017-09-22] MEDS ORDERED: Simethicone 40 mg/0.6 ml Liquid (30 ml) PO PRN (15:52)
[2017-09-22] MEDS ORDERED: Ergocalciferol 50,000 Intl Units Cap PO SCH (21:54)
[2017-09-22] MEDS: Insulin Detemir 100 Units/ml Inj SC SCH (22:25)
[2017-09-23] MEDS: Insulin Lispro (humaLOG) 100 Units/ml Inj SC SCH ×4 (06:32→21:48)
[2017-09-23 06:42] LABS: HEMOGLOBIN 8.5 g/dL (12.0-16.0); MEAN CELL VOLUME 76.2 fl (81.0-99.0); MEAN CORPUSCULAR HGB CONC 30.2 g/dL (33.0-37.0); RBC 3.72 Mil/uL (3.80-5.20); WHITE BLOOD COUNT 13.6 K/uL (4.8-10.8)
[2017-09-23 06:56] LABS: BLOOD UREA NITROGEN 29 mg/dl (7-17); CALCIUM 9.3 mg/dL (8.4-10.2); GFR AFRICAN-AMERICAN > 60; GFR NON-AFRICAN AMERICAN 54
[2017-09-23] MEDS: Levothyroxine 100 MCG TAB PO SCH (07:49)
[2017-09-23] MEDS: Enoxaparin 60 mg Syringe SC SCH (09:05)
[2017-09-23] MEDS: Omega-3-Acid Ethyl Esters 1 GM Cap PO SCH ×2 (09:05→21:44)
--- NOTE | 2017-09-23 11:29 | CP.PCM.PN ---
Subjective - Date & Time of Evaluation Date of Evaluation: 09/23/17 Time of Evaluation: 07:30 - Subjective Subjective: Pt seen and evaluated at bedside this am; no acute complaints or new events overnight, but states she has some constipation. Denies difficulty breathing, chest pain, abdominal pain, leg pain. Objective - Vital Signs/Intake and Output Vital Signs (last 24 hours): Temp Pulse Resp BP Pulse Ox 97.7 F 60 18 137/67 97 09/23/17 08:00 09/23/17 09:02 09/23/17 08:00 09/23/17 09:02 09/23/17 08:00 - Medications Medications: Current Medications Albuterol/Ipratropium (Duoneb 3 Mg/0.5 Mg (3 Ml) Ud) 3 ml INH RQ4 PRN PRN Reason: Shortness of Breath Alprazolam (Xanax) 0.25 mg PO Q12 PRN PRN Reason: Anxiety Stop: 09/28/17 21:55 Amiodarone HCl (Cordarone) 200 mg PO Q12 [facility] Last Admin: 09/23/17 09:02 Dose: 200 mg Amlodipine Besylate (Norvasc) 2.5 mg PO DAILY [facility] Last Admin: 09/23/17 09:06 Dose: 2.5 mg Atorvastatin Calcium (Lipitor) 20 mg PO HS [facility] Last Admin: 09/22/17 21:45 Dose: 20 mg Clopidogrel Bisulfate (Plavix) 75 mg PO DAILY [facility] Last Admin: 09/23/17 09:07 Dose: 75 mg Dextrose (Dextrose 50% Inj) 0 ml IV STAT PRN; Protocol PRN Reason: Hypoglycemia Protocol Dextrose (Glutose 15) 0 gm PO ONCE PRN; Protocol PRN Reason: Hypoglycemia Protocol Docusate Sodium (Colace Liquid) 100 mg NG BID PRN PRN Reason: Constipation Docusate Sodium (Colace) 100 mg PO DAILY PRN PRN Reason: Constipation Enoxaparin Sodium (Lovenox) 50 mg SC DAILY [facility] PRN Reason: Protocol Last Admin: 09/23/17 09:05 Dose: 50 mg Ergocalciferol (Drisdol 50,000 Intl Units Cap) 1 cap PO TH [facility] Last Admin: 09/22/17 21:45 Dose: 1 cap Ferrous Sulfate (Feosol) 325 mg PO DAILY [facility] Last Admin: 09/23/17 09:03 Dose: 325 mg Glucagon (Glucagen Diagnostic Kit) 0 mg IM STAT PRN; Protocol PRN Reason: Hypoglycemia Protocol Hydrochlorothiazide (Hydrodiuril) 25 mg PO DAILY [facility] Last Admin: 09/23/17 09:05 Dose: 25 mg Insulin Detemir (Levemir) 30 units SC [facility] Last Admin: 09/22/17 22:25 Dose: 30 units Insulin Human Lispro (Humalog) 0 units SC [facility] PRN Reason: Protocol Last Admin: 09/23/17 06:32 Dose: 2 units Levothyroxine Sodium (Synthroid) 100 mcg PO DAILY@0630 [facility] Last Admin: 09/23/17 07:49 Dose: 100 mcg Loratadine (Claritin) 10 mg PO DAILY PRN PRN Reason: Allergy symptoms Metformin HCl (Glucophage) 1,000 mg PO BID [facility] Last Admin: 09/23/17 09:04 Dose: 1,000 mg Epcax-5-Twjd Ethyl Esters (Lovaza) 1 gm PO Q12 [facility] Last Admin: 09/23/17 09:05 Dose: 1 gm Simethicone (Mylicon Liq) 40 mg PO QID PRN PRN Reason: Flatulence Last Admin: 09/22/17 18:57 Dose: 40 mg Valsartan (Diovan) 160 mg PO DAILY [facility] Last Admin: 09/23/17 09:04 Dose: 160 mg Zolpidem Tartrate (Ambien) 10 mg PO [facility] Last Admin: 09/22/17 22:38 Dose: 10 mg - Labs Labs: 09/23/17 05:00 09/23/17 05:00 PT 12.1 Seconds (9.8-13.1) 09/21/17 17:00 INR 1.1 (0.9-1.2) 09/21/17 17:00 APTT 30.5 Seconds (25.6-37.1) 09/21/17 17:00 - Constitutional Appears: Non-toxic, No Acute Distress - Eye Exam Eye Exam: Normal appearance - ENT Exam ENT Exam: Mucous Membranes Moist - Respiratory Exam Respiratory Exam: Wheezes (scattered), NORMAL BREATHING PATTERN. absent: Respiratory Distress - Cardiovascular Exam Cardiovascular Exam: REGULAR RHYTHM, +S1, +S2 - GI/Abdominal Exam GI & Abdominal Exam: Soft, Normal Bowel Sounds. absent: Tenderness - Extremities Exam Extremities Exam: absent: Calf Tenderness, Pedal Edema - Neurological Exam Neurological Exam: Alert, Awake - Skin Skin Exam: Dry, Intact, Normal Color, Warm Assessment and Plan - Assessment and Plan (Free Text) Assessment: 77 y/o morbidly obese female with PMHx of moderate peristent asthma, CAD s/p quad CABG, HTN, HLD, IDDM2, OA, hypothyroidism admitted for worsening SOB, possibly due to asthma vs CHF vs pulmonary htn. Clinically improving. Plan: #) SOB/Cough, likely Asthma Exacerbation - Asthma exacerbation vs CHF vs Pulmonary HTN. 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 - Improved symptoms, but still mild wheezing - CT: b/l pleural effusion, no PE, cardiomegaly, pulmonary vascular congestion, and suspected pulmonary hypertension - 2L NC - 40 mg solumedrol Q12; s/p solu-medrol 125mg IVP in ED - Duo-nebs Q4H scheduled - Troponin neg x3 - Repeat CXR - persistent cardiomegaly, CHF - monitor for acute changes #) Anemia - Hgb 8.5 today; 11 as of Apr 2017 - FOBT today - Iron studies today (iron, tibc, ferritin, transferrin), retic count - Consider transfusion #) IDDM2 -c/w home meds as ordered -monitor blood sugars -hypoglycemia protocol -Lispro coverage scale #) Hypertension -monitor vitals -c/w home meds as ordered #) Atrial Fibrillation -rate controlled, EKG reviewed, NSR with 1st degree AV block, QTc prolongation at 500 ms, no acute changes -c/w amiodarone as ordered -c/w plavix as ordered #) Hypothyroidism -c/w home meds as ordered #) Diet -heart healthy, low carb #) Prophylaxis -Lovenox 50mg SC QD 2/2 to BMI
[2017-09-23 11:56] LABS: IRON 360 ug/dL (37-170)
[2017-09-23 12:05] LABS: % IRON SATURATION 98 % (20-55); TOTAL IRON BINDING CAPACITY 366 ug/dL (250-450)
[2017-09-23] MEDS: Albuterol-Ipratrop 3 mg / 0.5 (3 ml) UD INH SCH ×3 (15:31→23:26)
[2017-09-23] MEDS ORDERED: methylPREDNISolone 40 MG in Sodium Chloride 0.9% 50 ML IVPB SCH (21:00)
[2017-09-23] MEDS: Insulin Detemir 100 Units/ml Inj SC SCH (21:45)
[2017-09-23] MEDS: MethylPREDNISolone 40 mg Vial IVP SCH (21:47)
[2017-09-23 23:54] VITALS: RESP 18
[2017-09-24] MEDS: Albuterol-Ipratrop 3 mg / 0.5 (3 ml) UD INH SCH ×4 (04:38→15:39)
[2017-09-24] MEDS: Levothyroxine 100 MCG TAB PO SCH (06:35)
[2017-09-24] MEDS: Insulin Lispro (humaLOG) 100 Units/ml Inj SC SCH ×3 (06:36→16:30)
[2017-09-24] MEDS: Omega-3-Acid Ethyl Esters 1 GM Cap PO SCH (08:49)
[2017-09-24] MEDS: Enoxaparin 60 mg Syringe SC SCH (08:50)
[2017-09-24] MEDS: MethylPREDNISolone 40 mg Vial IVP SCH (08:55)
[2017-09-24 10:17] LABS: HEMOGLOBIN 10.4 g/dL (12.0-16.0); MEAN CELL VOLUME 78.1 fl (81.0-99.0); MEAN CORPUSCULAR HEMOGLOBIN 24.5 pg (27.0-31.0); MEAN CORPUSCULAR HGB CONC 31.4 g/dL (33.0-37.0); RBC 4.25 Mil/uL (3.80-5.20)
--- NOTE | 2017-09-24 14:31 | CP.PCM.DIS ---
Provider - Provider Date of Admission: 09/23/17 13:23 Attending physician: Devorah Malik MD Time Spent in preparation of Discharge (in minutes): 45 Diagnosis - Discharge Diagnosis (1) Asthma exacerbation Status: Acute Comment: Pt treated with DuoNebs and steroids with improvement. She is now stable for discharge and denies requiring refills. (2) Anemia Status: Acute Comment: Patient with chronic anemia, however due to symptomatic was transfused 2 units with appropriate Hgb rise by 2g and subjective improvement. Given 1 dose of lasix afterwards to prevent heart failure symptoms. Stable for discharge. (3) Diastolic heart failure Status: Acute Comment: Follows with Dr Lopez and last echo approximately 5 months prior and pt reports "everything was good". BNP was elevated alhtough lower than prior visit combined with a suggestion of increased vascular congestion on CXR. She was treated empirically with lasix. She is stable for discharge and follow up with Dr Lopez. Hospital Course - Lab Results Lab Results: Micro Results 09/22/17 11:56 Sputum Gram Stain - Final 09/22/17 11:56 Sputum Sputum Culture - Final NORMAL ORAL GOSIA 09/21/17 16:08 Blood-Venous Blood Culture - Preliminary NO GROWTH AFTER 48 HOURS 09/21/17 16:25 Blood-Venous Blood Culture - Preliminary NO GROWTH AFTER 48 HOURS Most Recent Lab Values WBC 12.0 K/uL (4.8-10.8) H 09/24/17 09:13 RBC 4.25 Mil/uL (3.80-5.20) 09/24/17 09:13 Hgb 10.4 g/dL (12.0-16.0) L 09/24/17 09:13 Hct 33.2 % (34.0-47.0) L 09/24/17 09:13 MCV 78.1 fl (81.0-99.0) L 09/24/17 09:13 MCH 24.5 pg (27.0-31.0) L 09/24/17 09:13 MCHC 31.4 g/dL (33.0-37.0) L 09/24/17 09:13 RDW 21.0 % (11.5-14.5) H 09/24/17 09:13 Plt Count 337 K/uL (130-400) 09/24/17 09:13 MPV 7.8 fl (7.2-11.7) 09/21/17 16:08 Neut % (Auto) 67.5 % (50.0-75.0) 09/21/17 16:08 Lymph % (Auto) 20.8 % (20.0-40.0) 09/21/17 16:08 [place] % (Auto) 7.5 % (0.0-10.0) 09/21/17 16:08 Eos % (Auto) 3.3 % (0.0-4.0) 09/21/17 16:08 Baso % (Auto) 0.9 % (0.0-2.0) 09/21/17 16:08 Neut # (Auto) 6.1 K/uL (1.8-7.0) 09/21/17 16:08 Lymph # (Auto) 1.9 K/uL (1.0-4.3) 09/21/17 16:08 [place] # (Auto) 0.7 K/uL (0.0-0.8) 09/21/17 16:08 Eos # (Auto) 0.3 K/uL (0.0-0.7) 09/21/17 16:08 Baso # (Auto) 0.1 K/uL (0.0-0.2) 09/21/17 16:08 Retic Count 3.8 % (0.5-1.5) H 09/23/17 11:39 PT 12.1 Seconds (9.8-13.1) 09/21/17 17:00 INR 1.1 (0.9-1.2) 09/21/17 17:00 APTT 30.5 Seconds (25.6-37.1) 09/21/17 17:00 D-Dimer, Quantitative 343 ng/mlDDU (0-230) H 09/21/17 17:00 pCO2 40 mm/Hg (35-45) 09/21/17 16:14 pO2 76 mm/Hg (80-100) L 09/21/17 16:14 HCO3 26.4 mmol/L (21-28) 09/21/17 16:14 ABG pH 7.43 (7.35-7.45) 09/21/17 16:14 ABG Total CO2 27.7 mmol/L (22-28) 09/21/17 16:14 ABG O2 Saturation 97.4 % (95-98) 09/21/17 16:14 ABG Base Excess 2.0 mmol/L (-2.0-3.0) 09/21/17 16:14 Chao Test Yes 09/21/17 16:14 ABG Potassium 4.2 mmol/L (3.6-5.2) 09/21/17 16:14 A-a O2 Difference 131.0 mm/Hg 09/21/17 16:14 Sodium 137.0 mmol/L (132-148) 09/21/17 16:14 Chloride 106.0 mmol/L (98-107) 09/21/17 16:14 Glucose 279 mg/dL (65-105) H 09/21/17 16:14 Lactate 2.2 mmol/L (0.7-2.1) H 09/21/17 16:14 FiO2 36.0 % 09/21/17 16:14 Sodium 142 mmol/l (132-148) 09/23/17 05:00 Potassium 3.8 MMOL/L (3.6-5.0) 09/23/17 05:00 Chloride 98 mmol/L (98-107) 09/23/17 05:00 Carbon Dioxide 28 mmol/L (22-30) 09/23/17 05:00 Anion Gap 20 (10-20) 09/23/17 05:00 BUN 29 mg/dl (7-17) H 09/23/17 05:00 Creatinine 1.0 mg/dl (0.7-1.2) 09/23/17 05:00 Est GFR ( Amer) > 60 09/23/17 05:00 Est GFR (Non-Af Amer) 54 09/23/17 05:00 POC Glucose (mg/dL) 407 mg/dL (65-110) H* 09/24/17 11:28 Random Glucose 194 mg/dL (65-105) H 09/23/17 05:00 Lactic Acid 2.0 MMOL/L (0.7-2.1) 09/22/17 06:00 Calcium 9.3 mg/dL (8.4-10.2) 09/23/17 05:00 Phosphorus 2.5 mg/dl (2.5-4.5) 09/21/17 16:08 Magnesium 1.7 MG/DL (1.6-2.3) 09/21/17 16:08 Iron 360 ug/dL (37-170) H 09/23/17 11:39 TIBC 366 ug/dL (250-450) 09/23/17 11:39 % Saturation 98 % (20-55) H 09/23/17 11:39 Transferrin 262.98 mg/dL (206-381) 09/23/17 11:39 Ferritin 32.6 ng/Ml (11.1-264.0) 09/23/17 11:39 Total Bilirubin 0.6 mg/dl (0.2-1.3) 09/22/17 06:00 AST 22 U/L (14-36) 09/22/17 06:00 ALT 27 U/L (9-52) 09/22/17 06:00 Alkaline Phosphatase 143 U/L (38-126) H 09/22/17 06:00 Troponin I < 0.0120 ng/mL (0.00-0.120) 09/22/17 07:19 NT-Pro-B Natriuret Pep 703 pg/ml (0-900) 09/21/17 16:08 Total Protein 7.8 G/DL (6.3-8.2) 09/22/17 06:00 Albumin 3.8 g/dL (3.5-5.0) 09/22/17 06:00 Globulin 4.0 gm/dL (2.2-3.9) H 09/22/17 06:00 Albumin/Globulin Ratio 0.9 (1.0-2.1) L 09/22/17 06:00 Arterial Blood Potassium 4.2 mmol/L (3.6-5.2) 09/21/17 16:14 Stool Occult Blood Negative (NEGATIVE) 09/23/17 08:56 Influenza Typ A,B (EIA) Negative for flu a/b (NEGATIVE) 09/21/17 16:32 Blood Type O POSITIVE 09/23/17 18:40 Antibody Screen Negative 09/23/17 18:40 Crossmatch See Detail 09/23/17 18:40 BBK History Checked Patient has bt 03 18:40 - Hospital Course Hospital Course: 77F seen and examined at bedside with attending. She has no acute complaints, is ready to go home, and feels much better. Admitted for asthma exacerbation, treated for chronic microcytic anemia with 2U and improved. She is stable for discharge to home at baseline. No changes made to home medications. Discharge Exam - Head Exam Head Exam: NORMAL INSPECTION - Eye Exam Eye Exam: EOMI, Normal appearance - ENT Exam ENT Exam: Mucous Membranes Moist - Respiratory Exam Respiratory Exam: Clear to PA & Lateral, NORMAL BREATHING PATTERN. absent: Rales - Cardiovascular Exam Cardiovascular Exam: REGULAR RHYTHM, +S1, +S2 - GI/Abdominal Exam GI & Abdominal Exam: Normal Bowel Sounds, Soft. absent: Tenderness - Extremities Exam Additional comments: No lower extremity edema - Neurological Exam Neurological exam: Alert, Oriented x3 - Psychiatric Exam Psychiatric exam: Normal Affect, Normal Mood - Skin Skin Exam: Dry, Warm Discharge Plan - Discharge Medications Prescriptions: Methylprednisolone [Medrol Dose Pack (21 tabs)] 4 mg PO DAILY #21 mg - Follow Up Plan Condition: FAIR Disposition: HOME/ ROUTINE Patient education suggested?: Yes Instructions: Heart Failure, Adult, Asthma, Adult (DC), Anemia Caused by Low Iron, Adult (DC) Referrals: David Benavides MD [Family Provider] - 2 Weeks (Please call [phone] and then option #2, then option #5, then option #2.) Moncho Lopez MD [Staff Provider] - 1 Week (Please call for an appointment.)
[2017-09-24 17:05] VITALS: BP 164/69; PULSE 75; TEMP 98.6; O2SAT 98
--- NOTE | 2017-09-26 10:14 | PQF GENQUE ---
Dr. Benavides, Please specify type of COPD: H and P: hx. COPD Exacerbation of COPD Stable Other COPD (please specify) Clinically unable to determine Unknown OR: COPD ruled out This form is a permanent part of the medical record Clarification of your documentation is requested to better reflect the severity of illness and intensity of treatment of your patient. Indicators present [] Specify: [] [] Specify: [] [] Specify: [] [] Specify: [] Location in the medical record that reflects the above clinical findings: [] Treatment Provided: [] PHYSICIAN'S RESPONSE Based on your medical judgment of the clinical indicators outlined above please clarify the following: [] Practitioner response [] If unable to determine, please check the box, sign and date. Present On Admission (POA) Indicator: [] Present at the time of admission [] Not present at the time of admission [] Clinically Undetermined In responding to this query, please exercise your independent professional judgment. The fact that a question is asked does not imply that any particular answer is desired or expected. Thank you for your clarification on this documentation. If you have any questions please call. * Thank you, Lena Hendricks RN ext. #[phone] MTDD
--- NOTE | 2017-09-26 10:17 | PQF GENQUE ---
Dr. Benavides, Please clarify the type of atrial fibrillation: if known >> Chronic >> Paroxysmal >> Permanent >> Persistent >> Other (please specify type) >> Clinically unable to determine >> Unknown H and P; Atrial Fibrillation -rate controlled, EKG reviewed, NSR with 1st degree AV block, QTc prolongation at 500 ms, no acute changes -c/w amiodarone as ordered -c/w plavix as ordered This form is a permanent part of the medical record Clarification of your documentation is requested to better reflect the severity of illness and intensity of treatment of your patient. Indicators present [] Specify: [] [] Specify: [] [] Specify: [] [] Specify: [] Location in the medical record that reflects the above clinical findings: [] Treatment Provided: [] PHYSICIAN'S RESPONSE Based on your medical judgment of the clinical indicators outlined above please clarify the following: [] Practitioner response [] If unable to determine, please check the box, sign and date. Present On Admission (POA) Indicator: [] Present at the time of admission [] Not present at the time of admission [] Clinically Undetermined In responding to this query, please exercise your independent professional judgment. The fact that a question is asked does not imply that any particular answer is desired or expected. Thank you for your clarification on this documentation. If you have any questions please call. * Thank you, Lena Hendricks RN ext. #[phone] MTDD
--- NOTE | 2017-09-26 10:19 | PQF GENQUE ---
Dr. Benavides, Please clarify the type of anemia: if known Blood loss anemia, acute Blood loss anemia, chronic Chronic anemia Deficiency anemia (please specify type) Due to/in/with antineoplastic chemotherapy Due to/in/with chronic kidney disease Due to/in/with kidney failure Due to/in/with neoplastic disease Iron deficiency anemia Macrocytic anemia Microcytic anemia Normocytic anemia Postoperative blood loss anemia Pernicious anemia Other anemia (please specify) Clinically unable to determine Unknown H and P; Anemia - Hgb 8.5 today; 11 as of Apr 2017 - FOBT today - Iron studies today (iron, tibc, ferritin, transferrin), retic count - Consider transfusion This form is a permanent part of the medical record Clarification of your documentation is requested to better reflect the severity of illness and intensity of treatment of your patient. Indicators present [] Specify: [] [] Specify: [] [] Specify: [] [] Specify: [] Location in the medical record that reflects the above clinical findings: [] Treatment Provided: [] PHYSICIAN'S RESPONSE Based on your medical judgment of the clinical indicators outlined above please clarify the following: [] Practitioner response [] If unable to determine, please check the box, sign and date. Present On Admission (POA) Indicator: [] Present at the time of admission [] Not present at the time of admission [] Clinically Undetermined In responding to this query, please exercise your independent professional judgment. The fact that a question is asked does not imply that any particular answer is desired or expected. Thank you for your clarification on this documentation. If you have any questions please call. * Thank you, Lena Hendricks RN ext. #[phone] MTDD
--- NOTE | 2017-09-26 10:28 | PQF GENQUE ---
Dr. Benavides, 2 queries: Please specify the type and acuity of heart failure in your progress notes: if ruled in versus ruled out 1. TYPE: Combined systolic and diastolic Heart failure with reduced ejection fraction and diastolic dysfunction Diastolic HFpEF Systolic HFrEF Left heart failure Right heart failure Right heart failure due to left heart failure High Output failure End stage heart failure Other (please specify) Clinically unable to determine Unknown 2. ACUITY: Acute Chronic Acute on chronic Other (please specify) Clinically unable to determine Unknown 09/23 progress notes: SOB/Cough, likely Asthma Exacerbation - Asthma exacerbation vs CHF vs Pulmonary HTN. 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 - Improved symptoms, but still mild wheezing - CT: b/l pleural effusion, no PE, cardiomegaly, pulmonary vascular congestion, and suspected pulmonary hypertension - 2L NC - 40 mg solumedrol Q12; s/p solu-medrol 125mg IVP in ED - Duo-nebs Q4H scheduled - Troponin neg x3 09/21 Lasix IV, 09/22: Lasix 40 mg IV x 2 doses 09/24 Lasix IV x one dose This form is a permanent part of the medical record Clarification of your documentation is requested to better reflect the severity of illness and intensity of treatment of your patient. Indicators present [] Specify: [] [] Specify: [] [] Specify: [] [] Specify: [] Location in the medical record that reflects the above clinical findings: [] Treatment Provided: [] PHYSICIAN'S RESPONSE Based on your medical judgment of the clinical indicators outlined above please clarify the following: [] Practitioner response [] If unable to determine, please check the box, sign and date. Present On Admission (POA) Indicator: [] Present at the time of admission [] Not present at the time of admission [] Clinically Undetermined In responding to this query, please exercise your independent professional judgment. The fact that a question is asked does not imply that any particular answer is desired or expected. Thank you for your clarification on this documentation. If you have any questions please call:[ ] * Thank you, [ ] multi township assessor RIO
== END 2017-09-24 18:13 | disposition home or self-care (01) | DRG 203 ==
LOC: H.ER 15:10 → H.ERHOLD 21:11 → H.TEL 23:55 → OBSVTOIN 09-23 13:23
PROVIDERS: ADMIT Family Medicine Geriatric Medicine; ATTEND Family Medicine Geriatric Medicine
PROC: 30233N1 Transfusion of Nonautologous Red Blood Cells into Peripheral Vein, Percutaneous Approach (ICD-10-PCS; principal; 2017-09-23)
DX: J45.41 Moderate persistent asthma with (acute) exacerbation (principal); E66.01 Morbid (severe) obesity due to excess calories; I48.2 Chronic atrial fibrillation; Z68.37 Body mass index [BMI] 37.0-37.9, adult; I25.10 Atherosclerotic heart disease of native coronary artery without angina pectoris; E03.9 Hypothyroidism, unspecified; E78.5 Hyperlipidemia, unspecified; I10 Essential (primary) hypertension; Z95.1 Presence of aortocoronary bypass graft; G89.29 Other chronic pain; K59.00 Constipation, unspecified; Z79.4 Long term (current) use of insulin; Z88.3 Allergy status to other anti-infective agents; D50.9 Iron deficiency anemia, unspecified

== ENCOUNTER 2017-10-13 01:39 | Inpatient (IN) | payer MEDICARE, MEDICAID ==
[2017-10-13 01:39] VITALS: BMI 37.8
[2017-10-13] MEDS ORDERED: Promethazine 25 MG in Sodium Chloride 0.9% 50 ML IVPB ONE (03:07)
[2017-10-13] MEDS ORDERED: Morphine 4 MG/ML VIAL IVP STA ×2 (03:07→06:59)
[2017-10-13] MEDS ORDERED: Sodium Chloride 0.9% 1,000 ML IV STA (03:08)
[2017-10-13] MEDS ORDERED: Morphine 4 MG/ML VIAL ONE ×2 (03:08→07:00)
[2017-10-13 03:44] LABS: BASO # 0.1 K/uL (0.0-0.2); BASO % 0.7 % (0.0-2.0); EOS # 0.4 K/uL (0.0-0.7); EOS % 2.7 % (0.0-4.0); HEMOGLOBIN 12.5 g/dL (12.0-16.0); LYMPH # 2.7 K/uL (1.0-4.3); LYMPH % 20.7 % (20.0-40.0); MEAN CELL VOLUME 80.4 fl (81.0-99.0); MEAN CORPUSCULAR HEMOGLOBIN 25.9 pg (27.0-31.0); MEAN CORPUSCULAR HGB CONC 32.3 g/dL (33.0-37.0); MEAN PLATELET VOLUME 8.5 fl (7.2-11.7); MONO # 1.1 K/uL (0.0-0.8); MONO % 8.1 % (0.0-10.0); NEUT # 8.8 K/uL (1.8-7.0); NEUT % 67.8 % (50.0-75.0); NRBC % 0.1 % (0.0-0.0); RBC 4.82 Mil/uL (3.80-5.20)
[2017-10-13 03:50] LABS: VENOUS BLOOD GAS PCO2 52 mmHg (40-60); VENOUS BLOOD GAS PO2 36 mm/Hg (30-55)
[2017-10-13 04:02] LABS: ALT/SGPT 43 U/L (9-52); AST/SGOT 22 U/L (14-36); BLOOD UREA NITROGEN 21 mg/dl (7-17); CALCIUM 9.4 mg/dL (8.4-10.2); GFR AFRICAN-AMERICAN > 60; GFR NON-AFRICAN AMERICAN > 60; LIPASE 30 U/L (23-300)
--- NOTE | 2017-10-13 04:21 | ED PDOC ---
HPI: Abdomen Time Seen by Provider: 10/13/17 02:24 Chief Complaint (Nursing): Abdominal Pain Chief Complaint (Provider): Abdominal Pain History Per: Patient History/Exam Limitations: no limitations Onset/Duration Of Symptoms: Days (x 1) Current Symptoms Are (Timing): Still Present Quality Of Discomfort: "Pain" Associated Symptoms: Nausea, Vomiting. denies: Fever, Chills Additional Complaint(s): 77 year old male with history of DM, HTN, cholecystectomy, and abdominal hernia presents to the Ed complaining of abdominal pain with associated nausea, vomiting and decreased bowel movements since yesterday. Patient reports pain has been getting progressively worse. She had 1 episode of nbnb vomiting at home and 2 episodes of vomiting upon arrival to the ED. Denies fever and chills. PMD: Dr. David Benavides MD Past Medical History Reviewed: Historical Data, Nursing Documentation, Vital Signs Vital Signs: Last Vital Signs Temp 98.3 F 10/13/17 16:22 Pulse 80 10/13/17 16:45 Resp 20 10/13/17 16:45 BP 179/75 H 10/13/17 16:45 Pulse Ox 96 10/13/17 16:45 - Medical History PMH: CAD, COPD, Diabetes, HTN Denies: Chronic Kidney Disease - Surgical History Surgical History: Appendectomy, CABG (x4), Cholecystectomy - Family History Family History: States: Unknown Family Hx - Home Medications Home Medications: Ambulatory Orders Medication Instructions Recorded ALPRAZolam [Xanax] 0.25 mg PO Q12 PRN 09/21/17 Amiodarone [Cordarone] 200 mg PO Q12 09/21/17 Atorvastatin [Lipitor] 20 mg PO HS 09/21/17 Clopidogrel [Plavix] 75 mg PO DAILY 09/21/17 Docusate [Colace] 100 mg PO DAILY PRN 09/21/17 Ergocalciferol (Vitamin D2) 50,000 unit PO TH 09/21/17 [Vitamin D2] Insulin Aspart, Recombinant 30 unit SC BID 09/21/17 [Novolog] Insulin Glargine, Recombina 40 unit SC HS 09/21/17 [Lantus] Iron Fumarate/Vit C/Vit B12/FA 1 cap PO DAILY 09/21/17 [Hematogen Forte Softgel] Levothyroxine [Synthroid] 100 mcg PO DAILY 09/21/17 MetFORMIN [glucoPHAGE] 1,000 mg PO BID 09/21/17 Valsartan/Hydrochlorothiazide 1 tab PO DAILY 09/21/17 [Diovan Hct 160-25 mg Tablet] Zolpidem [Ambien] 10 mg PO HS 09/21/17 amLODIPine [Norvasc] 2.5 mg PO DAILY 09/21/17 Icosapent Ethyl [Vascepa] 1 gm PO BID 10/13/17 - Allergies Allergies/Adverse Reactions: Allergies Allergy/AdvReac Type Severity Reaction Status Date / Time ciprofloxacin [From Cipro] Allergy RASH Verified 09/21/17 15:12 ciprofloxacin HCl Allergy RASH Verified 09/21/17 15:12 [From Cipro] Review of Systems ROS Statement: Except As Marked, All Systems Reviewed And Found Negative Gastrointestinal: Positive for: Nausea, Vomiting, Abdominal Pain, Other ( decreased bowel movement) Physical Exam - Reviewed Nursing Documentation Reviewed: Yes Vital Signs Reviewed: Yes - Physical Exam Appears: Positive for: Non-toxic, No Acute Distress (morbidly obese) Head Exam: Positive for: ATRAUMATIC, NORMOCEPHALIC Skin: Positive for: Normal Color, Warm, Dry Eye Exam: Positive for: EOMI, Normal appearance, PERRL Neck: Positive for: Normal, Painless ROM, Supple Cardiovascular/Chest: Positive for: Regular Rate, Rhythm. Negative for: Murmur Respiratory: Positive for: Normal Breath Sounds. Negative for: Respiratory Distress Gastrointestinal/Abdominal: Positive for: Tenderness (diffuse), Guarding ( involuntary). Negative for: Rebound, Other (peritoneal signs) Extremity: Positive for: Normal ROM. Negative for: Deformity Neurologic/Psych: Positive for: Alert, Oriented. Negative for: Motor/Sensory Deficits - Laboratory Results Result Diagrams: 10/13/17 03:41 10/13/17 03:41 - ECG O2 Sat by Pulse Oximetry: 96 (RA) Pulse Ox Interpretation: Normal Medical Decision Making Medical Decision Making: Time: 03:02 A/P: 77 year old female with a hsiotry of DM, HTN, cholecystectomy, and abdominal hernia presenting with nausea, vomiting and decreased bowel movement. --Concern for possible SBO vs colitis vs diverticulitis vs gastroenteritis --Will give antiemetics, pain meds and perform a CT scan Initial Plan: --VBG shock panel --CT abd & pelvis --CMP --Lipase --Troponin I --CBC with differentials --Morphine 4 mg IVP --Normal saline Iv 250 mls/hr --Phenergan Inj 25 mg IVPB --Urinalysis 0630 Patient found to have partial SBO on exam, also with pain returning. Discussed case with Surgery team. Admitted to service. Scribe Attestation: Documented by Josselin Gabriel acting as a scribe for Prashant Mitchell MD. Scribe Attestation: All medical record entries made by the Scribe were at my direction and personally dictated by me. I have reviewed the chart and agree that the record accurately reflects my personal performance of the history, physical exam, medical decision making, and the department course for this patient. I have also personally directed, reviewed, and agree with the discharge instructions and disposition. Disposition - Clinical Impression Clinical Impression: Partial small bowel obstruction - Disposition Disposition Time: 06:30 Condition: FAIR
[2017-10-13] MEDS ORDERED: Iohexol 300 100 ML IJ ONE (04:43)
[2017-10-13] MEDS ORDERED: Sodium Chloride 0.9% 100 ML ONE (04:44)
--- NOTE | 2017-10-13 06:56 | CT ---
EXAM: CT Abdomen and Pelvis With Intravenous Contrast EXAM DATE/TIME: 10/13/2017 3:06 AM CLINICAL HISTORY: 77 years old, female; Pain; Abdominal pain; Other: Vomiting; Additional info: Abd pain, vomiting, decreased bm TECHNIQUE: Axial computed tomography images of the abdomen and pelvis with intravenous contrast. All CT scans at this facility use one or more dose reduction techniques, viz.: automated exposure control; ma/kV adjustment per patient size (including targeted exams where dose is matched to indication; i.e. head); or iterative reconstruction technique. Coronal and sagittal reformatted images were created and reviewed. CONTRAST: 95 mL of omnipaque 300 administered intravenously. COMPARISON: No relevant prior studies available. FINDINGS: Cholecystectomy clips are present.There is intrahepatic duct dilation likely secondary to cholecystectomy.Recommend correlation with laboratory values. The spleen is normal. The pancreas is normal. There is minimal bilateral perinephric stranding. Tiny hypoattenuating renal lesions are present too small to accurately characterize however likely represents cysts. A portion of the stomach herniates between the abdominis rectus muscles however does not extend through the fascia, similar to prior chest CT. Hernia mesh is present in the anterior abdominal wall at midline. A loop of bowel herniates through the anterior inferior pelvic wall to the right of midline. There are a few dilated small bowel loops in the lower abdomen/upper pelvis with decompressed loops elsewhere. There is suggestion of caliber change at the hernia (please see coronal images 45 through 58 for dilated loop and coronal images 50 through 54 for nondilated loop). Findings concerning for partial small bowel obstruction. Evidence of prior bowel surgery in the mid abdomen. There is a small round 2 cm focal fat density surrounded by stranding in the anterior abdominal wall series 3 image 110. This may be an incidental finding, be postsurgical, or represent a small area of fat necrosis. There is stranding in the subcutaneous fat of the right anterior pelvis along with skin thickening. This could be postsurgical if the patient had recent surgery (surgical history not provided). Cellulitis cannot be excluded. IMPRESSION: Small bowel hernia in the inferior pelvis to the right of midline possibly resulting in partial small bowel obstruction as discussed above. Stranding and skin thickening in the anterior right pelvis could be postsurgical versus of infectious/inflammatory etiology. Recommend correlation w surgical history. Focal fat herniation with possible small area of fat necrosis as discussed above.
--- NOTE | 2017-10-13 08:51 | CP.PCM.HP ---
History of Present Illness - History of Present Illness History of Present Illness: 77 y/o morbidly obese female with PMHx remarkable for moderate peristent asthma , CAD s/p quad CABG, HTN, HLD, IDDM2, OA, Anemia and hypothyroidism presented to the ED complaining of abdominal pain with associated nausea, vomiting and decreased bowel movements since 3 days ago. Patient reports pain has been getting progressively worse. She had 1 episode of nbnb vomiting at home and 2 episodes of vomiting upon arrival to the ED. States last bowel movement 3 days ago. Patient reports been admitted 3 weeks ago due to sob and she was anemic receiving blood transfusion, she went home on oral Iron supplement. Otherwise she denies fever and chills, headaches, changes in vision, CP/palpitations, orthopnea, exterional CP, urinary symptoms, numbness/tingling, previous diarrhea , hematemesis or melena. Patient reports she has an appt with GI Dr Bolanos next week for evaluation of anemia. PMD: Dr Benavides at [facility] -Cardio: John PMHx: Moderate Persistent asthma, hypothyroidism, CAD s/p CABG, HTN, IDDM2, HLD , OA Meds: levothyroxine 88mcg, Lantus solostar 15 units SC HS, Novolog 7 units SC TID, Diovan HCT 160/25 QD, Lipitor 20mg QD, Plavix 75mg QD Metformin 1000mg BID, Monetelukast 10mg HS, ProAir HFA 108, Iron Allergies: Ciprofloxaxin (RASH) PSurgHx: Quad CABG, appendectomy, cholescteomy, Abdominal wall hernia SocialHx: hx of 1/3 PPD >20 years, quit several months ago. Denies ETOH/Drug abuse FamilyHx: mother/father/brother all [place] around 68 years LMP: >30 years ago Next of Kin: Daughter, Carly Code Status: DNI/DNR, as per patient her daughter is aware. ED course: VS: T 97.7, BP 175/72, HR 74, RR 16, Sat 96% RA. PE: Resp: clear to ausc b/l, CVS: RRR, + S1 S2, ABD: diffuse tenderness. Labs: CBC wnl except WBC 13.0, CMP wnl, troponin I x1 negative, lipase 30. ABD CT: small bowell hernia in the inferior pelvis to the right midline possibly resulting in partial SBO, skin thickening in anterior right pelvis, focal fat herniation with possible small area of fat necrosis. Meds: phenergan 25mg IV once, Morphine 4 mg IV once IV fluids Present on Admission - Present on Admission Any Indicators Present on Admission: No Review of Systems - Review of Systems All systems: reviewed and no additional remarkable complaints except (as per HPI ) Past Patient History - Tetanus Immunizations Tetanus Immunization: Unknown - Past Medical History & Family History Past Medical History?: Yes - Past Social History Smoking Status: Current Some Days Smoker - CARDIAC Hx Hypertension: Yes - PULMONARY Hx Chronic Obstructive Pulmonary Disease (COPD): Yes - NEUROLOGICAL Hx Neurological Disorder: No - HEENT Hx HEENT Problems: No - RENAL Hx Chronic Kidney Disease: No - ENDOCRINE/METABOLIC Hx Diabetes Mellitus Type 2: Yes - HEMATOLOGICAL/ONCOLOGICAL Hx Blood Disorders: No - INTEGUMENTARY Hx Dermatological Problems: No - MUSCULOSKELETAL/RHEUMATOLOGICAL Hx Musculoskeletal Disorders: No Hx Falls: No - GASTROINTESTINAL Hx Gastrointestinal Disorders: No - GENITOURINARY/GYNECOLOGICAL Hx Genitourinary Disorders: No - PSYCHIATRIC Hx Psychophysiologic Disorder: No Hx Substance Use: No - SURGICAL HISTORY Hx Appendectomy: Yes Hx Cholecystectomy: Yes Hx Coronary Artery Bypass Graft: Yes (x4) - ANESTHESIA Hx Anesthesia: Yes Hx Anesthesia Reactions: No Meds Allergies/Adverse Reactions: Allergies Allergy/AdvReac Type Severity Reaction Status Date / Time ciprofloxacin [From Cipro] Allergy RASH Verified 09/21/17 15:12 ciprofloxacin HCl Allergy RASH Verified 09/21/17 15:12 [From Cipro] Physical Exam - Constitutional Appears: No Acute Distress Additional comments: Morbidly obese patient - Head Exam Head Exam: NORMAL INSPECTION - Eye Exam Eye Exam: EOMI, PERRL - ENT Exam ENT Exam: Mucous Membranes Moist - Respiratory Exam Respiratory Exam: Clear to Auscultation Bilateral, NORMAL BREATHING PATTERN. absent: Rales, Rhonchi, Wheezes - Cardiovascular Exam Cardiovascular Exam: REGULAR RHYTHM, +S1, +S2 - GI/Abdominal Exam GI & Abdominal Exam: Hyperactive Bowel Sounds, Tenderness (diffuse, ) Additional comments: Obese abdomen difficult to assess - Extremities Exam Extremities exam: Negative for: calf tenderness, pedal edema - Neurological Exam Neurological exam: Alert, Oriented x3 - Psychiatric Exam Psychiatric exam: Normal Mood - Skin Skin Exam: Dry, Warm Results - Vital Signs Recent Vital Signs: Last Vital Signs Temp 97.9 F 04/05/18 01:52 Pulse 74 10/13/17 01:52 Resp 16 10/13/17 01:52 BP 175/72 H 10/13/17 01:52 Pulse Ox 96 10/13/17 04:29 - Labs Result Diagrams: 10/13/17 03:41 10/13/17 03:41 Labs: Laboratory Results - last 24 hr 10/13/17 10/13/17 10/13/17 02:51 03:34 03:41 WBC 13.0 H RBC 4.82 Hgb 12.5 D Hct 38.8 MCV 80.4 L D MCH 25.9 L MCHC 32.3 L RDW 24.0 H Plt Count 377 MPV 8.5 Neut % (Auto) 67.8 Lymph % (Auto) 20.7 [place] % (Auto) 8.1 Eos % (Auto) 2.7 Baso % (Auto) 0.7 Neut # (Auto) 8.8 H Lymph # (Auto) 2.7 [place] # (Auto) 1.1 H Eos # (Auto) 0.4 Baso # (Auto) 0.1 pO2 36 VBG pH 7.40 VBG pCO2 52 VBG HCO3 28.8 VBG Total CO2 33.8 H VBG O2 Sat (Calc) 64.0 VBG Base Excess 6.0 H VBG Potassium 4.5 Sodium 136.0 Chloride 110.0 H Glucose 279 H Lactate 2.0 FiO2 21.0 Potassium Carbon Dioxide Anion Gap BUN Creatinine Est GFR ( Amer) Est GFR (Non-Af Amer) POC Glucose (mg/dL) 267 H Random Glucose Calcium Total Bilirubin AST ALT Alkaline Phosphatase Troponin I Total Protein Albumin Globulin Albumin/Globulin Ratio Lipase Venous Blood Potassium 4.5 10/13/17 03:41 WBC RBC Hgb Hct MCV MCH MCHC RDW Plt Count MPV Neut % (Auto) Lymph % (Auto) [place] % (Auto) Eos % (Auto) Baso % (Auto) Neut # (Auto) Lymph # (Auto) [place] # (Auto) Eos # (Auto) Baso # (Auto) pO2 VBG pH VBG pCO2 VBG HCO3 VBG Total CO2 VBG O2 Sat (Calc) VBG Base Excess VBG Potassium Sodium 141 Chloride 98 Glucose Lactate FiO2 Potassium 4.5 Carbon Dioxide 25 Anion Gap 23 H BUN 21 H Creatinine 0.9 Est GFR ( Amer) > 60 Est GFR (Non-Af Amer) > 60 POC Glucose (mg/dL) Random Glucose 255 H Calcium 9.4 Total Bilirubin 0.5 AST 22 ALT 43 Alkaline Phosphatase 158 H Troponin I < 0.0120 Total Protein 8.0 Albumin 4.0 Globulin 4.0 H Albumin/Globulin Ratio 1.0 Lipase 30 Venous Blood Potassium Assessment & Plan - Assessment and Plan (Free Text) Assessment: 77 yo F obese patient with extensive PMH of: Moderate Persistent asthma, hypothyroidism, CAD s/p CABG, HTN, IDDM2, HLD, OA and anemia admitted due to worsening abdominal pain and constipation, r/o partial SBO. PLAN: 1- Abdominal pain/constipation, acute - likely secondary to partial SBO. - Admit to the floor - NPO (pt declines NGT placement) - ABD CT: small bowell hernia in the inferior pelvis to the right midline possibly resulting in partial SBO, skin thickening in anterior right pelvis, focal fat herniation with possible small area of fat necrosis. - IV fluids - Zofran PRN for vomiting - Surgery consult appreciated - serial abdominal exams 2- IDDM2 -c/w home meds as ordered -monitor blood sugars -hypoglycemia protocol 3- Hypertension -monitor vitals -c/w home meds as ordered 4- Atrial Fibrillation -rate controlled -c/w amiodarone as ordered -c/w plavix as ordered 5)-Hypothyroidism -c/w home meds as ordered 7) Prophylaxis -Lovenox 40mg SC 8) Code Status: -DNI/DNR
--- NOTE | 2017-10-13 09:32 | CP.PCM.CON ---
<Aren Johnson - Last Filed: 10/13/17 09:20> History of Present Illness - History of Present Illness History of Present Illness: General Surgery Consult for Dr. Cadet This is a 77F with a PMH of asthma, CAD s/p quad CABG, HTN, HLD, IDDM2, OA, Anemia and hypothyroidism who presented to the ED with abdominal pain for the past 2 days, which has been getting worse. She reports nausea denies vomiting. She reports last BM was yesterday described as non bloody. Patient reports pain has been getting progressively worse. She reports that her abdomen at this time is bloated compared to her baseline. She had a CT scan which shows 2 ventral hernias one containing bowel which is partially obstructing, the other containing fat. She reports prior surgical history limited to ventral hernia repair and open denis. PT is unsure of etiology of ventral hernia. PMH: Moderate Persistent asthma, hypothyroidism, CAD s/p CABG, HTN, IDDM2, HLD, OA PSH: Quad CABG, appendectomy, cholecystectomy, Abdominal wall hernia ALL: Cipr Social: hx of 1/3 PPD >20 years, quit several months ago. Denies ETOH/Drug abuse Review of Systems - Review of Systems All systems: reviewed and no additional remarkable complaints except - Constitutional Constitutional: Chills. absent: Anorexia - Gastrointestinal Gastrointestinal: Abdominal Pain, Bloating, Nausea. absent: Diarrhea, Vomiting Past Patient History - Tetanus Immunizations Tetanus Immunization: Unknown - Past Medical History & Family History Past Medical History?: Yes - Past Social History Smoking Status: Current Some Days Smoker - CARDIAC Hx Hypertension: Yes - PULMONARY Hx Chronic Obstructive Pulmonary Disease (COPD): Yes - NEUROLOGICAL Hx Neurological Disorder: No - HEENT Hx HEENT Problems: No - RENAL Hx Chronic Kidney Disease: No - ENDOCRINE/METABOLIC Hx Diabetes Mellitus Type 2: Yes - HEMATOLOGICAL/ONCOLOGICAL Hx Blood Disorders: No - INTEGUMENTARY Hx Dermatological Problems: No - MUSCULOSKELETAL/RHEUMATOLOGICAL Hx Musculoskeletal Disorders: No Hx Falls: No - GASTROINTESTINAL Hx Gastrointestinal Disorders: No - GENITOURINARY/GYNECOLOGICAL Hx Genitourinary Disorders: No - PSYCHIATRIC Hx Psychophysiologic Disorder: No Hx Substance Use: No - SURGICAL HISTORY Hx Appendectomy: Yes Hx Cholecystectomy: Yes Hx Coronary Artery Bypass Graft: Yes (x4) - ANESTHESIA Hx Anesthesia: Yes Hx Anesthesia Reactions: No Meds Allergies/Adverse Reactions: Allergies Allergy/AdvReac Type Severity Reaction Status Date / Time ciprofloxacin [From Cipro] Allergy RASH Verified 09/21/17 15:12 ciprofloxacin HCl Allergy RASH Verified 09/21/17 15:12 [From Cipro] Physical Exam - Constitutional Appears: Non-toxic, No Acute Distress - Head Exam Head Exam: ATRAUMATIC, NORMOCEPHALIC - Eye Exam Eye Exam: EOMI - ENT Exam ENT Exam: Mucous Membranes Moist - Respiratory Exam Respiratory Exam: NORMAL BREATHING PATTERN - Cardiovascular Exam Cardiovascular Exam: +S1, +S2 - GI/Abdominal Exam GI & Abdominal Exam: Tenderness Additional comments: Abdomen is mildly tender, and distended - Neurological Exam Neurological exam: Alert, Oriented x3 - Psychiatric Exam Psychiatric exam: Normal Affect, Normal Mood - Skin Skin Exam: Dry, Intact Results - Vital Signs Recent Vital Signs: Last Vital Signs Temp 97.9 F 10/13/17 01:52 Pulse 74 10/13/17 01:52 Resp 16 10/13/17 01:52 BP 175/72 H 10/13/17 01:52 Pulse Ox 96 10/13/17 04:29 - Labs Result Diagrams: 10/13/17 03:41 10/13/17 03:41 Labs: Laboratory Results - last 24 hr 10/13/17 10/13/17 10/13/17 02:51 03:34 03:41 WBC 13.0 H RBC 4.82 Hgb 12.5 D Hct 38.8 MCV 80.4 L D MCH 25.9 L MCHC 32.3 L RDW 24.0 H Plt Count 377 MPV 8.5 Neut % (Auto) 67.8 Lymph % (Auto) 20.7 [place] % (Auto) 8.1 Eos % (Auto) 2.7 Baso % (Auto) 0.7 Neut # (Auto) 8.8 H Lymph # (Auto) 2.7 [place] # (Auto) 1.1 H Eos # (Auto) 0.4 Baso # (Auto) 0.1 pO2 36 VBG pH 7.40 VBG pCO2 52 VBG HCO3 28.8 VBG Total CO2 33.8 H VBG O2 Sat (Calc) 64.0 VBG Base Excess 6.0 H VBG Potassium 4.5 Sodium 136.0 Chloride 110.0 H Glucose 279 H Lactate 2.0 FiO2 21.0 Potassium Carbon Dioxide Anion Gap BUN Creatinine Est GFR ( Amer) Est GFR (Non-Af Amer) POC Glucose (mg/dL) 267 H Random Glucose Calcium Total Bilirubin AST ALT Alkaline Phosphatase Troponin I Total Protein Albumin Globulin Albumin/Globulin Ratio Lipase Venous Blood Potassium 4.5 10/13/17 03:41 WBC RBC Hgb Hct MCV MCH MCHC RDW Plt Count MPV Neut % (Auto) Lymph % (Auto) [place] % (Auto) Eos % (Auto) Baso % (Auto) Neut # (Auto) Lymph # (Auto) [place] # (Auto) Eos # (Auto) Baso # (Auto) pO2 VBG pH VBG pCO2 VBG HCO3 VBG Total CO2 VBG O2 Sat (Calc) VBG Base Excess VBG Potassium Sodium 141 Chloride 98 Glucose Lactate FiO2 Potassium 4.5 Carbon Dioxide 25 Anion Gap 23 H BUN 21 H Creatinine 0.9 Est GFR ( Amer) > 60 Est GFR (Non-Af Amer) > 60 POC Glucose (mg/dL) Random Glucose 255 H Calcium 9.4 Total Bilirubin 0.5 AST 22 ALT 43 Alkaline Phosphatase 158 H Troponin I < 0.0120 Total Protein 8.0 Albumin 4.0 Globulin 4.0 H Albumin/Globulin Ratio 1.0 Lipase 30 Venous Blood Potassium Assessment & Plan - Assessment and Plan (Free Text) Assessment: 77F with ventral hernia and partial SBO NPO IVF Serial Abdominal Exams NGT D/W Dr. Chichi Johnson PGY2 <Riaz Cadet - Last Filed: 10/13/17 19:02> History of Present Illness - History of Present Illness History of Present Illness: Patient was seen and examined at the bedside. Agree with resident's note above. Meds - Medications Medications: Current Medications Amiodarone HCl (Cordarone) 200 mg PO Q12 JAN Amlodipine Besylate (Norvasc) 2.5 mg PO DAILY [facility] Atorvastatin Calcium (Lipitor) 20 mg PO HS JAN Clopidogrel Bisulfate (Plavix) 75 mg PO DAILY [facility] Enoxaparin Sodium (Lovenox) 40 mg SC DAILY [facility] PRN Reason: Protocol Hydrochlorothiazide (Hydrodiuril) 25 mg PO DAILY [facility] Dextrose/Sodium Chloride (Dextrose 5%/0.9% Ns 1000 Ml) 1,000 mls @ 140 mls/hr IV .Q7H9M [facility] Stop: 10/15/17 14:09 Sodium Chloride (Sodium Chloride 0.9%) 1,000 mls @ 140 mls/hr IV .Q7H9M [facility] Stop: 10/13/17 21:17 Insulin Detemir (Levemir) 40 units SC HS [facility] Insulin Human Lispro (Humalog) 30 units SC BID [facility] Levothyroxine Sodium (Synthroid) 88 mcg IVP DAILY [facility] Morphine Sulfate (Morphine) 4 mg IVP Q6 PRN PRN Reason: Pain, severe (8-10) Morphine Sulfate (Morphine) 2 mg IVP Q6 PRN PRN Reason: Pain, moderate (4-7) Last Admin: 10/13/17 17:39 Dose: 2 mg Ondansetron HCl (Zofran Inj) 4 mg IVP Q6 PRN PRN Reason: Nausea/Vomiting Valsartan (Diovan) 160 mg PO DAILY [facility] Physical Exam - GI/Abdominal Exam Additional comments: soft, very mildly tender, mildly distended, BS+, no rebound, no guarding, reducible hernias, well healed scars from prior surgeries - Rectal Exam Rectal Exam: Deferred Results - Vital Signs Recent Vital Signs: Last Vital Signs Temp 98.3 F 10/13/17 16:22 Pulse 80 10/13/17 16:45 Resp 20 10/13/17 16:45 BP 179/75 H 10/13/17 16:45 Pulse Ox 96 10/13/17 16:45 - Labs Result Diagrams: 10/13/17 03:41 10/13/17 03:41 Labs: Laboratory Results - last 24 hr 10/13/17 10/13/17 10/13/17 02:51 03:34 03:41 WBC 13.0 H RBC 4.82 Hgb 12.5 D Hct 38.8 MCV 80.4 L D MCH 25.9 L MCHC 32.3 L RDW 24.0 H Plt Count 377 MPV 8.5 Neut % (Auto) 67.8 Lymph % (Auto) 20.7 [place] % (Auto) 8.1 Eos % (Auto) 2.7 Baso % (Auto) 0.7 Neut # (Auto) 8.8 H Lymph # (Auto) 2.7 [place] # (Auto) 1.1 H Eos # (Auto) 0.4 Baso # (Auto) 0.1 pO2 36 VBG pH 7.40 VBG pCO2 52 VBG HCO3 28.8 VBG Total CO2 33.8 H VBG O2 Sat (Calc) 64.0 VBG Base Excess 6.0 H VBG Potassium 4.5 Sodium 136.0 Chloride 110.0 H Glucose 279 H Lactate 2.0 FiO2 21.0 Potassium Carbon Dioxide Anion Gap BUN Creatinine Est GFR ( Amer) Est GFR (Non-Af Amer) POC Glucose (mg/dL) 267 H Random Glucose Calcium Total Bilirubin AST ALT Alkaline Phosphatase Troponin I Total Protein Albumin Globulin Albumin/Globulin Ratio Lipase Venous Blood Potassium 4.5 Urine Color Urine Clarity Urine pH Ur Specific [place] Urine Protein Urine Glucose (UA) Urine Ketones Urine Blood Urine Nitrate Urine Bilirubin Urine Urobilinogen Ur Leukocyte Esterase Urine RBC (Auto) Urine Microscopic WBC Ur Squamous Epith Cells Urine Bacteria 10/13/17 10/13/17 03:41 09:54 WBC RBC Hgb Hct MCV MCH MCHC RDW Plt Count MPV Neut % (Auto) Lymph % (Auto) [place] % (Auto) Eos % (Auto) Baso % (Auto) Neut # (Auto) Lymph # (Auto) [place] # (Auto) Eos # (Auto) Baso # (Auto) pO2 VBG pH VBG pCO2 VBG HCO3 VBG Total CO2 VBG O2 Sat (Calc) VBG Base Excess VBG Potassium Sodium 141 Chloride 98 Glucose Lactate FiO2 Potassium 4.5 Carbon Dioxide 25 Anion Gap 23 H BUN 21 H Creatinine 0.9 Est GFR ( Amer) > 60 Est GFR (Non-Af Amer) > 60 POC Glucose (mg/dL) Random Glucose 255 H Calcium 9.4 Total Bilirubin 0.5 AST 22 ALT 43 Alkaline Phosphatase 158 H Troponin I < 0.0120 Total Protein 8.0 Albumin 4.0 Globulin 4.0 H Albumin/Globulin Ratio 1.0 Lipase 30 Venous Blood Potassium Urine Color Yellow Urine Clarity Slighty-cloudy Urine pH 7.0 Ur Specific [place] 1.035 H Urine Protein 30 Urine Glucose (UA) >=500 Urine Ketones Negative Urine Blood Small Urine Nitrate Negative Urine Bilirubin Negative Urine Urobilinogen 0.2-1.0 Ur Leukocyte Esterase Neg Urine RBC (Auto) 18 H Urine Microscopic WBC 3 Ur Squamous Epith Cells 1 Urine Bacteria Rare - Imaging and Cardiology CT scan - abdomen Status: Image reviewed by me, Report reviewed by me Assessment & Plan - Assessment and Plan (Free Text) Plan: - Keep NPO - NG tube - IV fluids - Repeat CT scan with po contrast - Repeat labs in am - Will follow
[2017-10-13 10:08] LABS: SQUAMOUS EPITHIAL 1 /hpf (0-5); URINE BACTERIA RARE (<OCC); URINE BILIRUBIN NEGATIVE (NEGATIVE); URINE BLOOD SMALL (NEGATIVE); URINE CLARITY SLIGHTY-CLOUDY (Clear); URINE COLOR YELLOW (YELLOW); URINE GLUCOSE (UA) >=500 mg/dL (Normal); URINE LEUKOCYTE ESTERASE NEG Leu/uL (Negative); URINE PROTEIN 30 mg/dL (NEGATIVE); URINE UROBILINOGEN 0.2-1.0 mg/dL (0.2-1.0)
[2017-10-13] MEDS ORDERED: Sodium Chloride 0.9% 1,000 ML IV SCH ×2 (11:00→14:10)
[2017-10-13] MEDS ORDERED: Morphine 4 MG/ML VIAL IVP PRN (14:10)
[2017-10-13] MEDS ORDERED: Iohexol 240 (50 ml) PO ONE (16:06)
[2017-10-13] MEDS ORDERED: Insulin Lispro (humaLOG) 100 Units/ml Inj SC SCH (17:00)
[2017-10-13] MEDS: Morphine 4 MG/ML VIAL IVP PRN (17:39)
[2017-10-13] MEDS: Dextrose 5%/0.9% NS 1,000 ML IV SCH (21:07)
--- NOTE | 2017-10-13 22:38 | CP.PCM.PN ---
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 Message relayed to primary team, Dr. Nuñez. Recommending Urology consult. Objective - Vital Signs/Intake and Output Vital Signs (last 24 hours): Temp Pulse Resp BP Pulse Ox 98.3 F 80 20 179/75 H 96 10/13/17 16:22 10/13/17 16:45 10/13/17 16:45 10/13/17 16:45 10/13/17 22:12 - Medications Medications: Current Medications Amiodarone HCl (Cordarone) 200 mg PO Q12 [facility] Amlodipine Besylate (Norvasc) 2.5 mg PO DAILY [facility] Atorvastatin Calcium (Lipitor) 20 mg PO HS [facility] Clopidogrel Bisulfate (Plavix) 75 mg PO DAILY [facility] Enoxaparin Sodium (Lovenox) 40 mg SC DAILY [facility] PRN Reason: Protocol Hydrochlorothiazide (Hydrodiuril) 25 mg PO DAILY [facility] Dextrose/Sodium Chloride (Dextrose 5%/0.9% Ns 1000 Ml) 1,000 mls @ 140 mls/hr IV .Q7H9M [facility] Stop: 10/15/17 14:09 Insulin Detemir (Levemir) 40 units SC HS [facility] Insulin Human Lispro (Humalog) 30 units SC BID [facility] Levothyroxine Sodium (Synthroid) 88 mcg IVP DAILY [facility] Morphine Sulfate (Morphine) 4 mg IVP Q6 PRN PRN Reason: Pain, severe (8-10) Morphine Sulfate (Morphine) 2 mg IVP Q6 PRN PRN Reason: Pain, moderate (4-7) Last Admin: 10/13/17 17:39 Dose: 2 mg Ondansetron HCl (Zofran Inj) 4 mg IVP Q6 PRN PRN Reason: Nausea/Vomiting Valsartan (Diovan) 160 mg PO DAILY [facility] - Labs Labs: 10/13/17 03:41 10/13/17 03:41
[2017-10-13] MEDS: Insulin Detemir 100 Units/ml Inj SC SCH (23:10)
[2017-10-14] MEDS: Dextrose 5%/0.9% NS 1,000 ML IV SCH ×3 (06:49→17:26)
[2017-10-14 07:44] LABS: BASO % 0.4 % (0.0-2.0); EOS # 0.1 K/uL (0.0-0.7); EOS % 1.3 % (0.0-4.0); HEMOGLOBIN 12.1 g/dL (12.0-16.0); LYMPH # 1.7 K/uL (1.0-4.3); LYMPH % 15.1 % (20.0-40.0); MEAN CELL VOLUME 80.2 fl (81.0-99.0); MEAN CORPUSCULAR HEMOGLOBIN 25.9 pg (27.0-31.0); MEAN CORPUSCULAR HGB CONC 32.2 g/dL (33.0-37.0); MEAN PLATELET VOLUME 8.7 fl (7.2-11.7); MONO # 0.9 K/uL (0.0-0.8); NEUT # 8.4 K/uL (1.8-7.0); NEUT % 75.2 % (50.0-75.0); NRBC % 0.1 % (0.0-0.0); RBC 4.69 Mil/uL (3.80-5.20); RED CELL DISTRIBUTION WIDTH 24.4 % (11.5-14.5); WHITE BLOOD COUNT 11.1 K/uL (4.8-10.8)
[2017-10-14] MEDS: Levothyroxine 100 mcg (0.1 mg) Inj IVP SCH (07:50)
[2017-10-14 07:54] LABS: ALB/GLOB RATIO 0.9 (1.0-2.1); ALBUMIN 3.3 g/dL (3.5-5.0); ALT/SGPT 33 U/L (9-52); AST/SGOT 18 U/L (14-36); BLOOD UREA NITROGEN 20 mg/dl (7-17); CALCIUM 8.7 mg/dL (8.4-10.2); GFR AFRICAN-AMERICAN > 60; GFR NON-AFRICAN AMERICAN > 60
--- NOTE | 2017-10-14 08:34 | CP.PCM.PN ---
<Palmira Alcantara - Last Filed: 10/14/17 14:26> Subjective - Date & Time of Evaluation Date of Evaluation: 10/14/17 Time of Evaluation: 08:34 - Subjective Subjective: Patient seen this morning at bedside, reports feeling better, mild abd pain less than yesterday, denies fever, nausea, vomiting, diarrhea. No BM yet. Afebrile, still NPO with NGT draining. Objective - Vital Signs/Intake and Output Vital Signs (last 24 hours): Temp Pulse Resp BP Pulse Ox 98.1 F 77 18 122/70 93 L 10/14/17 08:02 10/14/17 08:02 10/14/17 08:02 10/14/17 08:02 10/14/17 08:02 - Medications Medications: Current Medications Amiodarone HCl (Cordarone) 200 mg PO Q12 [facility] Last Admin: 10/13/17 22:00 Dose: 200 mg Amlodipine Besylate (Norvasc) 2.5 mg PO DAILY [facility] Atorvastatin Calcium (Lipitor) 20 mg PO HS [facility] Last Admin: 10/13/17 22:14 Dose: 20 mg Clopidogrel Bisulfate (Plavix) 75 mg PO DAILY [facility] Enoxaparin Sodium (Lovenox) 40 mg SC DAILY [facility] PRN Reason: Protocol Hydrochlorothiazide (Hydrodiuril) 25 mg PO DAILY [facility] Dextrose/Sodium Chloride (Dextrose 5%/0.9% Ns 1000 Ml) 1,000 mls @ 140 mls/hr IV .Q7H9M [facility] Stop: 10/15/17 14:09 Last Admin: 10/14/17 06:49 Dose: 140 mls/hr Insulin Detemir (Levemir) 40 units SC [facility] Last Admin: 10/13/17 23:10 Dose: 40 units Insulin Human Lispro (Humalog) 30 units SC BID [facility] Levothyroxine Sodium (Synthroid) 88 mcg IVP DAILY@0630 [facility] Last Admin: 10/14/17 07:50 Dose: 88 mcg Morphine Sulfate (Morphine) 4 mg IVP Q6 PRN PRN Reason: Pain, severe (8-10) Last Admin: 10/13/17 23:20 Dose: 4 mg Morphine Sulfate (Morphine) 2 mg IVP Q6 PRN PRN Reason: Pain, moderate (4-7) Last Admin: 10/13/17 17:39 Dose: 2 mg Ondansetron HCl (Zofran Inj) 4 mg IVP Q6 PRN PRN Reason: Nausea/Vomiting Valsartan (Diovan) 160 mg PO DAILY [facility] - Labs Labs: 10/14/17 05:30 10/14/17 05:30 - Constitutional Appears: Well, No Acute Distress - Head Exam Head Exam: NORMAL INSPECTION - Eye Exam Eye Exam: EOMI, PERRL - Respiratory Exam Respiratory Exam: Clear to Ausculation Bilateral, NORMAL BREATHING PATTERN. absent: Rhonchi, Wheezes - Cardiovascular Exam Cardiovascular Exam: REGULAR RHYTHM, +S1, +S2. absent: Tachycardia - GI/Abdominal Exam GI & Abdominal Exam: Normal Bowel Sounds. absent: Guarding Additional comments: Obese, hard, difficult to assess, mild diffuse tenderness on deep palpation. - Extremities Exam Extremities Exam: absent: Calf Tenderness - Neurological Exam Neurological Exam: Alert, Awake, Oriented x3 - Skin Skin Exam: Dry, Warm Assessment and Plan - Assessment and Plan (Free Text) Assessment: 77 yo F obese patient with extensive PMH of: Moderate Persistent asthma, hypothyroidism, CAD s/p CABG, HTN, IDDM2, HLD, OA and anemia admitted due to abdominal pain and constipation, partial SBO. PLAN: 1- Abdominal pain/constipation, acute - secondary to partial SBO. - NPO, with NGT - ABD CT: small bowell hernia in the inferior pelvis to the right midline possibly resulting in partial SBO, skin thickening in anterior right pelvis, focal fat herniation with possible small area of fat necrosis. - Repeat CT: Proximal small bowel obstruction. - Zofran PRN for vomiting - Surgery team on board - c/w IV fluids - serial abdominal exams - no surgical intervention for now. 2- IDDM2 -c/w home meds as ordered -monitor blood sugars -hypoglycemia protocol 3- Hypertension -monitor vitals -c/w home meds as ordered 4- Atrial Fibrillation -rate controlled -c/w amiodarone as ordered -c/w plavix as ordered 5)-Hypothyroidism -c/w home meds as ordered 7) Prophylaxis -Lovenox 40mg SC 8) Code Status: -DNI/DNR <Candi Brooke - Last Filed: 10/15/17 09:41> Objective - Vital Signs/Intake and Output Vital Signs (last 24 hours): Temp Pulse Resp BP Pulse Ox 98.2 F 81 18 117/68 90 L 10/15/17 00:35 10/15/17 00:35 10/15/17 00:35 10/15/17 00:35 10/14/17 15:25 Intake and Output: 10/15/17 10/15/17 06:59 18:59 Intake Total 1680 Output Total 550 Balance 1130 - Medications Medications: Current Medications Amiodarone HCl (Cordarone) 200 mg PO Q12 [facility] Last Admin: 10/14/17 22:01 Dose: 200 mg Amlodipine Besylate (Norvasc) 2.5 mg PO DAILY [facility] Last Admin: 10/14/17 08:52 Dose: 2.5 mg Atorvastatin Calcium (Lipitor) 20 mg PO [facility] Last Admin: 10/14/17 22:02 Dose: 20 mg Enoxaparin Sodium (Lovenox) 40 mg SC DAILY [facility] PRN Reason: Protocol Last Admin: 10/14/17 08:51 Dose: 40 mg Hydrochlorothiazide (Hydrodiuril) 25 mg PO DAILY [facility] Last Admin: 10/14/17 08:52 Dose: 25 mg Dextrose/Sodium Chloride (Dextrose 5%/0.9% Ns 1000 Ml) 1,000 mls @ 140 mls/hr IV .Q7H9M [facility] Stop: 10/15/17 14:09 Last Admin: 10/15/17 03:31 Dose: 140 mls/hr Insulin Detemir (Levemir) 40 units SC [facility] Last Admin: 10/14/17 22:02 Dose: 40 units Insulin Human Lispro (Humalog) 30 units SC BID [facility] Levothyroxine Sodium (Synthroid) 88 mcg IVP DAILY@0630 [facility] Last Admin: 10/15/17 06:58 Dose: 88 mcg Morphine Sulfate (Morphine) 4 mg IVP Q6 PRN PRN Reason: Pain, severe (8-10) Last Admin: 10/13/17 23:20 Dose: 4 mg Morphine Sulfate (Morphine) 2 mg IVP Q6 PRN PRN Reason: Pain, moderate (4-7) Last Admin: 10/14/17 17:25 Dose: 2 mg Ondansetron HCl (Zofran Inj) 4 mg IVP Q6 PRN PRN Reason: Nausea/Vomiting Valsartan (Diovan) 160 mg PO DAILY [facility] Last Admin: 10/14/17 08:52 Dose: 160 mg - Labs Labs: 10/15/17 05:05 10/15/17 05:05 Attending/Attestation - Attestation I have personally seen and examined this patient.: Yes I have fully participated in the care of the patient.: Yes I have reviewed all pertinent clinical information, including history, physical exam and plan: Yes Notes (Text): 10/15/17 09:41 ATTENDING NOTE ATTESTATION - PATIENT SEEN AND EXAMINED. CASE DISCUSSED WITH RESIDENT. AGREE WITH FINDINGS AND PLAN.
[2017-10-14] MEDS: Enoxaparin 40 mg Syringe SC SCH (08:51)
[2017-10-14] MEDS ORDERED: Patient's Own Med (Valsartan/Hydrochlorothiazide [Diovan Hct 160-25 Mg Tablet] 1 TAB) PO SCH (09:00)
--- NOTE | 2017-10-14 10:18 | CP.PCM.PN ---
<Aren Johnson - Last Filed: 10/14/17 11:05> Subjective - Date & Time of Evaluation Date of Evaluation: 10/14/17 Time of Evaluation: 09:00 - Subjective Subjective: General Surgery Progress Note for Dr. Cadet This 77F was seen and examined this AM at bedside no acute events to report overnight. She reports she is passing gas however she denies bowelmovements. She reports she is feeling as though she is improving. She denies fevers, chill , chest pain or shortness of breath. Objective - Vital Signs/Intake and Output Vital Signs (last 24 hours): Temp Pulse Resp BP Pulse Ox 98.1 F 77 18 122/70 93 L 10/14/17 08:02 10/14/17 08:52 10/14/17 08:02 10/14/17 08:52 10/14/17 08:02 Intake and Output: 10/14/17 10/14/17 06:59 18:59 Intake Total 1200 Output Total 1350 Balance -150 - Medications Medications: Current Medications Amiodarone HCl (Cordarone) 200 mg PO Q12 [facility] Last Admin: 10/14/17 08:52 Dose: 200 mg Amlodipine Besylate (Norvasc) 2.5 mg PO DAILY [facility] Last Admin: 10/14/17 08:52 Dose: 2.5 mg Atorvastatin Calcium (Lipitor) 20 mg PO [facility] Last Admin: 10/13/17 22:14 Dose: 20 mg Clopidogrel Bisulfate (Plavix) 75 mg PO DAILY [facility] Last Admin: 10/14/17 08:52 Dose: 75 mg Enoxaparin Sodium (Lovenox) 40 mg SC DAILY [facility] PRN Reason: Protocol Last Admin: 10/14/17 08:51 Dose: 40 mg Hydrochlorothiazide (Hydrodiuril) 25 mg PO DAILY [facility] Last Admin: 10/14/17 08:52 Dose: 25 mg Dextrose/Sodium Chloride (Dextrose 5%/0.9% Ns 1000 Ml) 1,000 mls @ 140 mls/hr IV .Q7H9M [facility] Stop: 10/15/17 14:09 Last Admin: 10/14/17 06:49 Dose: 140 mls/hr Insulin Detemir (Levemir) 40 units SC [facility] Last Admin: 10/13/17 23:10 Dose: 40 units Insulin Human Lispro (Humalog) 30 units SC BID [facility] Levothyroxine Sodium (Synthroid) 88 mcg IVP DAILY@0630 [facility] Last Admin: 10/14/17 07:50 Dose: 88 mcg Morphine Sulfate (Morphine) 4 mg IVP Q6 PRN PRN Reason: Pain, severe (8-10) Last Admin: 10/13/17 23:20 Dose: 4 mg Morphine Sulfate (Morphine) 2 mg IVP Q6 PRN PRN Reason: Pain, moderate (4-7) Last Admin: 10/13/17 17:39 Dose: 2 mg Ondansetron HCl (Zofran Inj) 4 mg IVP Q6 PRN PRN Reason: Nausea/Vomiting Valsartan (Diovan) 160 mg PO DAILY [facility] Last Admin: 10/14/17 08:52 Dose: 160 mg - Labs Labs: 10/14/17 05:30 10/14/17 05:30 - Constitutional Appears: Non-toxic, No Acute Distress - Head Exam Head Exam: ATRAUMATIC, NORMOCEPHALIC - Eye Exam Eye Exam: EOMI - ENT Exam ENT Exam: Mucous Membranes Moist - Respiratory Exam Respiratory Exam: NORMAL BREATHING PATTERN - Cardiovascular Exam Cardiovascular Exam: +S1, +S2 - GI/Abdominal Exam GI & Abdominal Exam: Soft. absent: Distended, Firm, Guarding, Rigid, Tenderness - Neurological Exam Neurological Exam: Alert, Awake - Psychiatric Exam Psychiatric exam: Normal Affect, Normal Mood - Skin Skin Exam: Dry, Intact, Normal Color Assessment and Plan - Assessment and Plan (Free Text) Assessment: 77F with ventral hernia admitted for SBO VSS WBC Decreasing 13-->11 CT: Air in Bladder wall recommend Uro consult NGT 250cc gastric content Serial ABD Discuss with Dr. Chichi Johnson PGY2 <Riaz Cadet - Last Filed: 10/14/17 15:11> Subjective - Date & Time of Evaluation Time of Evaluation: 14:35 - Subjective Subjective: Patient was seen and examined at the bedside. Agree with resident's note above. Objective - Vital Signs/Intake and Output Vital Signs (last 24 hours): Temp Pulse Resp BP Pulse Ox 98.1 F 77 18 122/70 93 L 10/14/17 08:02 10/14/17 08:52 10/14/17 08:02 10/14/17 08:52 10/14/17 08:02 Intake and Output: 10/14/17 10/14/17 06:59 18:59 Intake Total 1200 Output Total 1350 Balance -150 - Medications Medications: Current Medications Amiodarone HCl (Cordarone) 200 mg PO Q12 [facility] Last Admin: 10/14/17 08:52 Dose: 200 mg Amlodipine Besylate (Norvasc) 2.5 mg PO DAILY [facility] Last Admin: 10/14/17 08:52 Dose: 2.5 mg Atorvastatin Calcium (Lipitor) 20 mg PO [facility] Last Admin: 10/13/17 22:14 Dose: 20 mg Enoxaparin Sodium (Lovenox) 40 mg SC DAILY [facility] PRN Reason: Protocol Last Admin: 10/14/17 08:51 Dose: 40 mg Hydrochlorothiazide (Hydrodiuril) 25 mg PO DAILY [facility] Last Admin: 10/14/17 08:52 Dose: 25 mg Dextrose/Sodium Chloride (Dextrose 5%/0.9% Ns 1000 Ml) 1,000 mls @ 140 mls/hr IV .Q7H9M [facility] Stop: 10/15/17 14:09 Last Admin: 10/14/17 11:53 Dose: Not Given Insulin Detemir (Levemir) 40 units SC [facility] Last Admin: 10/13/17 23:10 Dose: 40 units Insulin Human Lispro (Humalog) 30 units SC BID [facility] Levothyroxine Sodium (Synthroid) 88 mcg IVP DAILY@0630 [facility] Last Admin: 10/14/17 07:50 Dose: 88 mcg Morphine Sulfate (Morphine) 4 mg IVP Q6 PRN PRN Reason: Pain, severe (8-10) Last Admin: 10/13/17 23:20 Dose: 4 mg Morphine Sulfate (Morphine) 2 mg IVP Q6 PRN PRN Reason: Pain, moderate (4-7) Last Admin: 10/14/17 11:52 Dose: 2 mg Ondansetron HCl (Zofran Inj) 4 mg IVP Q6 PRN PRN Reason: Nausea/Vomiting Valsartan (Diovan) 160 mg PO DAILY [facility] Last Admin: 10/14/17 08:52 Dose: 160 mg - Labs Labs: 10/14/17 05:30 10/14/17 05:30 Assessment and Plan - Assessment and Plan (Free Text) Plan: - Keep NPO - NG tube - IV fluids - repeat labs in am - Will follow
--- NOTE | 2017-10-14 11:43 | CT ---
PROCEDURE: CT Abdomen and Pelvis with contrast HISTORY: abdominal pain COMPARISON: October 13, 2017. CT abdomen and pelvis. Time of the most recent examination: Completed at 04:51 TECHNIQUE: Contrast dose: Oral Radiation dose: Total exam DLP = 1043.11 mGy-cm. This CT exam was performed using one or more of the following dose reduction techniques: Automated exposure control, adjustment of the mA and/or kV according to patient size, and/or use of iterative reconstruction technique. FINDINGS: LOWER THORAX: Unremarkable. LIVER: Unremarkable. No gross lesion or ductal dilatation. GALLBLADDER AND BILE DUCTS: Status post cholecystectomy. No abnormality is seen in the gallbladder fossa. PANCREAS: Unremarkable. No gross lesion or ductal dilatation. SPLEEN: Unremarkable. ADRENALS: Unremarkable. No mass. KIDNEYS AND URETERS: Unremarkable. No hydronephrosis. No solid mass. Incidental finding(s): Residual contrast in both kidneys related to recent injection of intravenous contrast VASCULATURE: Unremarkable. No aortic aneurysm. BOWEL: Proximal small bowel obstruction. The point of obstruction appears to be within the pelvis near the anastomotic suture line. Please note the obstruction is also proximal to the right inguinal hernia containing nondilated loops of small bowel without evidence of incarceration. Adjacent subcutaneous and cutaneous edema demonstrates improvement compared to the prior study. Nasogastric tube inserted in the antrum since the prior study courses to visualized esophagus, stomach with tip in the duodenum. Anterior abdominal wall, ventral hernia contains decompressed stomach. APPENDIX: A normal appendix is not seen. There is no evidence of an acute inflammatory process in the right lower quadrant. PERITONEUM: Unremarkable. No free fluid. No free air. LYMPH NODES: Unremarkable. No enlarged lymph nodes. BLADDER: New 0 air within a bladder wall indicative of acute emphysematous cystitis. Bladder wall thickening is accentuated by the decompressed bladder state. Contrast in the bladder secondary to the intravenous contrast administered on the recent CT scan. REPRODUCTIVE: Unremarkable. BONES: No acute fracture. OTHER FINDINGS: Additional benign and/or incidental findings described above. IMPRESSION: New mechanical small-bowel obstruction. The point of narrowing, is in the pelvis adjacent to bowel resection therefore raising the possibility of adhesions. Emphysematous cystitis, new finding compared to the prior study. Concordant results (preliminary interpretation) provided by [facility]. Procedure Completed: 20:52 Preliminary ([facility]) Report: Dictated and Authenticated: 21:15 Final Interpretation: 11:41. October 14, 2017.
[2017-10-14] MEDS: Morphine 4 MG/ML VIAL IVP PRN ×2 (11:52→17:25)
--- NOTE | 2017-10-14 11:59 | RAD ---
HISTORY: Small bowel obstruction COMPARISON: CT abdomen and pelvis from 10/13/2017 FINDINGS: BOWEL: The nasogastric tube terminates in the stomach. There is persistent mild dilatation of proximal small bowel loops. The colon is essentially decompressed. BONES: Normal. OTHER FINDINGS: None. IMPRESSION: Persistent mild gaseous distension of proximal small bowel loops consistent with known acute small bowel obstruction.
--- NOTE | 2017-10-14 15:07 | PQF GENQUE ---
Dr. Malik, Please include the BMI in your next progress note: if known BMI: 37.8 5ft 4 in 220lb: is listed in the EMR OR: Unable to determine H and P: dxs. include: Morbid Obesity This form is a permanent part of the medical record Clarification of your documentation is requested to better reflect the severity of illness and intensity of treatment of your patient. Indicators present [] Specify: [] [] Specify: [] [] Specify: [] [] Specify: [] Location in the medical record that reflects the above clinical findings: [] Treatment Provided: [] PHYSICIAN'S RESPONSE Based on your medical judgment of the clinical indicators outlined above please clarify the following: [] Practitioner response [] If unable to determine, please check the box, sign and date. Present On Admission (POA) Indicator: [] Present at the time of admission [] Not present at the time of admission [] Clinically Undetermined In responding to this query, please exercise your independent professional judgment. The fact that a question is asked does not imply that any particular answer is desired or expected. Thank you for your clarification on this documentation. If you have any questions please call. * Thank you, Lena Hendricks RN ext. #[phone] MTDD
--- NOTE | 2017-10-14 15:13 | PQF GENQUE ---
Dr. Malik, Please clarify the type of atrial fibrillation: if known >> Chronic >> Paroxysmal >> Permanent >> Persistent >> Other (please specify type) >> Clinically unable to determine >> Unknown H and P: Atrial Fibrillation -rate controlled -c/w amiodarone as ordered -c/ w plavix as ordered This form is a permanent part of the medical record Clarification of your documentation is requested to better reflect the severity of illness and intensity of treatment of your patient. Indicators present [] Specify: [] [] Specify: [] [] Specify: [] [] Specify: [] Location in the medical record that reflects the above clinical findings: [] Treatment Provided: [] PHYSICIAN'S RESPONSE Based on your medical judgment of the clinical indicators outlined above please clarify the following: [] Practitioner response [] If unable to determine, please check the box, sign and date. Present On Admission (POA) Indicator: [] Present at the time of admission [] Not present at the time of admission [] Clinically Undetermined In responding to this query, please exercise your independent professional judgment. The fact that a question is asked does not imply that any particular answer is desired or expected. Thank you for your clarification on this documentation. If you have any questions please call. * Thank you, Lena Hendricks RN ext. #[phone] MTDD
--- NOTE | 2017-10-14 21:18 | CON ---
COMPREHENSIVE UROLOGY CONSULTATION DATE OF CONSULTATION: 10/14/2017 TIME OF CONSULTATION: Roughly around 01:55 p.m. BRIEF HISTORY: The patient is a 77-year-old obese, female from [place], status post multiple bowel surgeries who presents to [facility] ER with bowel distention and pain and found to have a partial small bowel obstruction on CT. The patient states she voids with her usual normal stream. No dysuria, gross hematuria, or renal colic. The CT showed normal kidneys with no hydronephrosis or renal masses. Adrenals were also normal. A second CT; however, for followup of the bowel obstruction showed new finding of air in the bladder and reading of emphysematous cystitis. The patient is completely asymptomatic regarding her urinary symptoms and has no prior history of any urinary tract infections or pyelonephritis. She has no complaint of any lower abdominal pain especially over the bladder. PAST SURGICAL HISTORY: Included four-vessel CABG procedure, appendectomy, cholecystectomy and abdominal wall hernia repair. PAST MEDICAL HISTORY: Positive for asthma, hypothyroidism, coronary artery disease, status post CABG, hypertension, insulin-dependent diabetes mellitus, hyperlipidemia, and osteoarthritis. ALLERGIES: SHE IS ALLERGIC TO RASH. CURRENT MEDICATIONS: Include levothyroxine 88 mcg daily, Lantus Solostar 15 units subcutaneously at bedtime, NovoLog 7 units subcutaneously t.i.d., Diovan/hydrochlorothiazide 160/25 daily, Lipitor 20 mg daily, and Plavix 75 mg daily. SOCIAL HISTORY: She is a smoker, but no history of any alcohol use. PHYSICAL EXAMINATION: GENERAL: Today; she is a well-developed and well-nourished, obese female. She is alert. She is oriented with NG tube. HEENT: Otherwise grossly within normal limits. ABDOMEN: Soft and somewhat distended. Currently minimally tender at this time. No suprapubic tenderness. No Soriano catheter in place. She appears to have full range of motion of both upper and lower extremities. LABORATORY DATA: Her laboratory evaluation today 10/14/2017 shows a CBC with a WBC count of 11.1, hemoglobin of 12.1, hematocrit of 37.6, and a platelet count of 358,000. Her chem profile shows a sodium of 139, potassium of 4.3, chloride of 101, CO2 of 25, and BUN and creatinine of 20 and 0.9 respectively with a GFR of greater than 60. Random glucose was 260. Calcium was 8.7. AST was 18 and ALT was 33. Alkaline phosphatase was 108. Lipase was 30 on 10/13/2017. Her urinalysis on 10/13/2017 showed color was yellow, was slightly cloudy, pH was 7.0, and specific gravity 1.035. Protein 30, glucose greater than 500, ketones negative, blood small, nitrite negative, bilirubin negative, and urobilinogen . Leukocyte esterase was negative. RBCs 18, WBCs 3, and rare bacteria per high-power field. IMPRESSION: Diagnostic impression for this patient at this time is the findings only on CT. At this time, possible emphysematous cystitis. PLAN: Plan for this patient is to send the urine for culture and sensitivity and observation at this time and also microscopic hematuria diagnosis. James Huff MD MTDShara
[2017-10-14] MEDS: Insulin Detemir 100 Units/ml Inj SC SCH (22:02)
[2017-10-15] MEDS: Dextrose 5%/0.9% NS 1,000 ML IV SCH ×2 (03:31→10:39)
--- NOTE | 2017-10-15 06:26 | CP.PCM.PN ---
<Aren Johnson - Last Filed: 10/15/17 06:24> Subjective - Date & Time of Evaluation Date of Evaluation: 10/15/17 Time of Evaluation: 06:24 - Subjective Subjective: General Surgery Progress Note for Dr. Cadet This 77F was seen and examined this AM at bedside. No acute events overnight. Per nurse patient had substantial bowel movement overnight. This AM patient reports that she is feeling significantly better. She denies any fevers chills nausea or vomiting. NGT output recorded as 250 however patient was eating ice chips this AM with the NGT in place and diluted bilous output in tubing. Objective - Vital Signs/Intake and Output Vital Signs (last 24 hours): Temp Pulse Resp BP Pulse Ox 98.2 F 81 18 117/68 90 L 10/15/17 00:35 10/15/17 00:35 10/15/17 00:35 10/15/17 00:35 10/14/17 15:25 Intake and Output: 10/14/17 10/15/17 18:59 06:59 Intake Total 1200 Output Total 1350 Balance -150 - Medications Medications: Current Medications Amiodarone HCl (Cordarone) 200 mg PO Q12 [facility] Last Admin: 10/14/17 22:01 Dose: 200 mg Amlodipine Besylate (Norvasc) 2.5 mg PO DAILY [facility] Last Admin: 10/14/17 08:52 Dose: 2.5 mg Atorvastatin Calcium (Lipitor) 20 mg PO HS [facility] Last Admin: 10/14/17 22:02 Dose: 20 mg Enoxaparin Sodium (Lovenox) 40 mg SC DAILY [facility] PRN Reason: Protocol Last Admin: 10/14/17 08:51 Dose: 40 mg Hydrochlorothiazide (Hydrodiuril) 25 mg PO DAILY [facility] Last Admin: 10/14/17 08:52 Dose: 25 mg Dextrose/Sodium Chloride (Dextrose 5%/0.9% Ns 1000 Ml) 1,000 mls @ 140 mls/hr IV .Q7H9M [facility] Stop: 10/15/17 14:09 Last Admin: 10/15/17 03:31 Dose: 140 mls/hr Insulin Detemir (Levemir) 40 units SC [facility] Last Admin: 10/14/17 22:02 Dose: 40 units Insulin Human Lispro (Humalog) 30 units SC BID [facility] Levothyroxine Sodium (Synthroid) 88 mcg IVP DAILY@0630 [facility] Last Admin: 10/14/17 07:50 Dose: 88 mcg Morphine Sulfate (Morphine) 4 mg IVP Q6 PRN PRN Reason: Pain, severe (8-10) Last Admin: 10/13/17 23:20 Dose: 4 mg Morphine Sulfate (Morphine) 2 mg IVP Q6 PRN PRN Reason: Pain, moderate (4-7) Last Admin: 10/14/17 17:25 Dose: 2 mg Ondansetron HCl (Zofran Inj) 4 mg IVP Q6 PRN PRN Reason: Nausea/Vomiting Valsartan (Diovan) 160 mg PO DAILY [facility] Last Admin: 10/14/17 08:52 Dose: 160 mg - Labs Labs: 10/14/17 05:30 10/14/17 05:30 - Constitutional Appears: Non-toxic, No Acute Distress - Head Exam Head Exam: ATRAUMATIC, NORMOCEPHALIC - Eye Exam Eye Exam: EOMI - ENT Exam ENT Exam: Mucous Membranes Moist - Respiratory Exam Respiratory Exam: NORMAL BREATHING PATTERN - Cardiovascular Exam Cardiovascular Exam: +S1, +S2 - GI/Abdominal Exam GI & Abdominal Exam: Soft, Hernia. absent: Distended, Firm, Guarding, Rigid, Tenderness - Neurological Exam Neurological Exam: Alert, Awake - Psychiatric Exam Psychiatric exam: Normal Mood - Skin Skin Exam: Dry, Intact Assessment and Plan - Assessment and Plan (Free Text) Assessment: 77F with ventral hernia admitted for SBO VSS Keep NGT to suction Serial ABD Discuss with Dr. Chichi Johnson PGY2 <Riaz Cadet - Last Filed: 10/15/17 15:42> Subjective - Date & Time of Evaluation Time of Evaluation: 15:20 - Subjective Subjective: Patient was seen and examined at the bedside. Passing flatus and having bowel movements. Patient pulled out her NG tube. Objective - Vital Signs/Intake and Output Vital Signs (last 24 hours): Temp Pulse Resp BP Pulse Ox 98.2 F 80 18 117/62 90 L 10/15/17 00:35 10/15/17 10:40 10/15/17 00:35 10/15/17 10:40 10/14/17 15:25 Intake and Output: 10/15/17 10/15/17 06:59 18:59 Intake Total 1680 Output Total 550 Balance 1130 - Medications Medications: Current Medications Amiodarone HCl (Cordarone) 200 mg PO Q12 [facility] Last Admin: 10/15/17 10:39 Dose: 200 mg Amlodipine Besylate (Norvasc) 2.5 mg PO DAILY [facility] Last Admin: 10/15/17 10:40 Dose: 2.5 mg Atorvastatin Calcium (Lipitor) 20 mg PO [facility] Last Admin: 10/14/17 22:02 Dose: 20 mg Enoxaparin Sodium (Lovenox) 40 mg SC DAILY [facility] PRN Reason: Protocol Last Admin: 10/15/17 10:40 Dose: 40 mg Hydrochlorothiazide (Hydrodiuril) 25 mg PO DAILY [facility] Last Admin: 10/15/17 10:42 Dose: 25 mg Insulin Detemir (Levemir) 40 units SC [facility] Last Admin: 10/14/17 22:02 Dose: 40 units Insulin Human Lispro (Humalog) 30 units SC BID [facility] Levothyroxine Sodium (Synthroid) 88 mcg IVP DAILY@0630 [facility] Last Admin: 10/15/17 06:58 Dose: 88 mcg Morphine Sulfate (Morphine) 4 mg IVP Q6 PRN PRN Reason: Pain, severe (8-10) Last Admin: 10/13/17 23:20 Dose: 4 mg Morphine Sulfate (Morphine) 2 mg IVP Q6 PRN PRN Reason: Pain, moderate (4-7) Last Admin: 10/14/17 17:25 Dose: 2 mg Ondansetron HCl (Zofran Inj) 4 mg IVP Q6 PRN PRN Reason: Nausea/Vomiting Valsartan (Diovan) 160 mg PO DAILY [facility] Last Admin: 10/15/17 10:39 Dose: 160 mg - Labs Labs: 10/15/17 05:05 10/15/17 05:05 - GI/Abdominal Exam Additional comments: soft, NT, ND, BS+, no rebound, no guarding, well healed incisions from prior surgeries Assessment and Plan - Assessment and Plan (Free Text) Plan: - Start clear liquid diet - IV fluids - Zofran prn - Repeat labs in am - Will follow
[2017-10-15] MEDS: Levothyroxine 100 mcg (0.1 mg) Inj IVP SCH (06:58)
[2017-10-15 07:41] LABS: MEAN CELL VOLUME 81.7 fl (81.0-99.0); MEAN CORPUSCULAR HEMOGLOBIN 25.9 pg (27.0-31.0); MEAN CORPUSCULAR HGB CONC 31.7 g/dL (33.0-37.0); RBC 4.63 Mil/uL (3.80-5.20); RED CELL DISTRIBUTION WIDTH 24.7 % (11.5-14.5); WHITE BLOOD COUNT 7.9 K/uL (4.8-10.8)
[2017-10-15 07:55] LABS: BLOOD UREA NITROGEN 36 mg/dl (7-17); CALCIUM 8.1 mg/dL (8.4-10.2); GFR AFRICAN-AMERICAN > 60; GFR NON-AFRICAN AMERICAN 54
--- NOTE | 2017-10-15 08:24 | CP.PCM.PN ---
<Palmira Alcantara - Last Filed: 10/15/17 13:38> Subjective - Date & Time of Evaluation Date of Evaluation: 10/15/17 Time of Evaluation: 08:23 - Subjective Subjective: Patient seen and examined at bedside. No acute events overnight. Patient states that had several soft BM during the night, this morning she reports that she is feeling significantly better. She denies any fevers chills nausea or vomiting. NGT output recorded as 250. Still NPO, surgery team on board. Objective - Vital Signs/Intake and Output Vital Signs (last 24 hours): Temp Pulse Resp BP Pulse Ox 98.2 F 81 18 117/68 90 L 10/15/17 00:35 10/15/17 00:35 10/15/17 00:35 10/15/17 00:35 10/14/17 15:25 Intake and Output: 10/15/17 10/15/17 06:59 18:59 Intake Total 1680 Output Total 550 Balance 1130 - Medications Medications: Current Medications Amiodarone HCl (Cordarone) 200 mg PO Q12 [facility] Last Admin: 10/14/17 22:01 Dose: 200 mg Amlodipine Besylate (Norvasc) 2.5 mg PO DAILY [facility] Last Admin: 10/14/17 08:52 Dose: 2.5 mg Atorvastatin Calcium (Lipitor) 20 mg PO [facility] Last Admin: 10/14/17 22:02 Dose: 20 mg Enoxaparin Sodium (Lovenox) 40 mg SC DAILY [facility] PRN Reason: Protocol Last Admin: 10/14/17 08:51 Dose: 40 mg Hydrochlorothiazide (Hydrodiuril) 25 mg PO DAILY [facility] Last Admin: 10/14/17 08:52 Dose: 25 mg Dextrose/Sodium Chloride (Dextrose 5%/0.9% Ns 1000 Ml) 1,000 mls @ 140 mls/hr IV .Q7H9M [facility] Stop: 10/15/17 14:09 Last Admin: 10/15/17 03:31 Dose: 140 mls/hr Insulin Detemir (Levemir) 40 units SC [facility] Last Admin: 10/14/17 22:02 Dose: 40 units Insulin Human Lispro (Humalog) 30 units SC BID [facility] Levothyroxine Sodium (Synthroid) 88 mcg IVP DAILY@0630 [facility] Last Admin: 10/15/17 06:58 Dose: 88 mcg Morphine Sulfate (Morphine) 4 mg IVP Q6 PRN PRN Reason: Pain, severe (8-10) Last Admin: 10/13/17 23:20 Dose: 4 mg Morphine Sulfate (Morphine) 2 mg IVP Q6 PRN PRN Reason: Pain, moderate (4-7) Last Admin: 10/14/17 17:25 Dose: 2 mg Ondansetron HCl (Zofran Inj) 4 mg IVP Q6 PRN PRN Reason: Nausea/Vomiting Valsartan (Diovan) 160 mg PO DAILY [facility] Last Admin: 10/14/17 08:52 Dose: 160 mg - Labs Labs: 10/15/17 05:05 10/15/17 05:05 - Constitutional Appears: No Acute Distress - Head Exam Head Exam: NORMAL INSPECTION - Eye Exam Eye Exam: EOMI, PERRL - Respiratory Exam Respiratory Exam: Clear to Ausculation Bilateral, NORMAL BREATHING PATTERN. absent: Wheezes - Cardiovascular Exam Cardiovascular Exam: REGULAR RHYTHM, +S1, +S2. absent: Tachycardia - GI/Abdominal Exam GI & Abdominal Exam: Normal Bowel Sounds. absent: Tenderness Additional comments: Obese - Extremities Exam Extremities Exam: absent: Calf Tenderness - Neurological Exam Neurological Exam: Alert, Awake, Oriented x3 - Skin Skin Exam: Dry, Intact, Warm Assessment and Plan - Assessment and Plan (Free Text) Assessment: 77 yo F obese patient with extensive PMH of: Moderate Persistent asthma, hypothyroidism, CAD s/p CABG, HTN, IDDM2, HLD, OA and anemia admitted due to abdominal pain and constipation, partial SBO. PLAN: 1- Abdominal pain/constipation, acute - secondary to partial SBO. - NPO, with NGT draining 250 cc this morning - Repeat CT 10/13/17: Proximal small bowel obstruction. - Zofran PRN for vomiting - Surgery team on board - c/w IV fluids - serial abdominal exams - no surgical intervention for now. 2- IDDM2 -c/w home meds as ordered -monitor blood sugars -hypoglycemia protocol 3- Hypertension -monitor vitals -c/w home meds as ordered 4- Atrial Fibrillation -rate controlled -c/w amiodarone as ordered -c/w plavix as ordered 5)-Hypothyroidism -c/w home meds as ordered 7) Prophylaxis -Lovenox 40mg SC 8) Code Status: -DNI/DNR <Candi Brooke - Last Filed: 10/16/17 08:42> Objective - Vital Signs/Intake and Output Vital Signs (last 24 hours): Temp Pulse Resp BP Pulse Ox 97.7 F 70 18 151/78 H 99 10/16/17 00:16 10/16/17 00:16 10/16/17 00:16 10/16/17 00:16 10/16/17 00:16 - Medications Medications: Current Medications Amiodarone HCl (Cordarone) 200 mg PO Q12 [facility] Last Admin: 10/15/17 21:54 Dose: 200 mg Amlodipine Besylate (Norvasc) 2.5 mg PO DAILY [facility] Last Admin: 10/15/17 10:40 Dose: 2.5 mg Atorvastatin Calcium (Lipitor) 20 mg PO HS [facility] Last Admin: 10/15/17 21:54 Dose: 20 mg Enoxaparin Sodium (Lovenox) 40 mg SC DAILY [facility] PRN Reason: Protocol Last Admin: 10/15/17 10:40 Dose: 40 mg Hydrochlorothiazide (Hydrodiuril) 25 mg PO DAILY [facility] Last Admin: 10/15/17 10:42 Dose: 25 mg Insulin Detemir (Levemir) 40 units SC HS [facility] Last Admin: 10/15/17 21:58 Dose: 40 units Insulin Human Lispro (Humalog) 30 units SC BID [facility] Levothyroxine Sodium (Synthroid) 88 mcg PO DAILY@0630 [facility] Last Admin: 10/16/17 06:20 Dose: 88 mcg Morphine Sulfate (Morphine) 4 mg IVP Q6 PRN PRN Reason: Pain, severe (8-10) Last Admin: 10/13/17 23:20 Dose: 4 mg Morphine Sulfate (Morphine) 2 mg IVP Q6 PRN PRN Reason: Pain, moderate (4-7) Last Admin: 10/14/17 17:25 Dose: 2 mg Ondansetron HCl (Zofran Inj) 4 mg IVP Q6 PRN PRN Reason: Nausea/Vomiting Simethicone (Mylicon Chew Tab) 80 mg PO TID PRN PRN Reason: Flatulence Last Admin: 10/16/17 06:20 Dose: 80 mg Valsartan (Diovan) 160 mg PO DAILY [facility] Last Admin: 10/15/17 10:39 Dose: 160 mg - Labs Labs: 10/16/17 06:20 10/16/17 06:20 Attending/Attestation - Attestation I have personally seen and examined this patient.: Yes I have fully participated in the care of the patient.: Yes I have reviewed all pertinent clinical information, including history, physical exam and plan: Yes Notes (Text): 10/16/17 08:41 ATTENDING NOTE ATTESTATION. PATIENT SEEN AND EXAMINED. CASE DISCUSSED WITH RESIDENT. NG IS OUT AT TIME OF ROUNDS. SURGERY STIL RECOMMENDING NPO AT THIS TIME. PATIENT REPORTS SHE FEELS IMPROVED. NO VOMITING THIS AM. AGREE WITH FINDINGS AND PLAN.
[2017-10-15] MEDS: Enoxaparin 40 mg Syringe SC SCH (10:40)
[2017-10-15] MEDS: Insulin Detemir 100 Units/ml Inj SC SCH (21:58)
[2017-10-15] MEDS ORDERED: DiphenhydrAMINE 12.5 mg/5 ml LIQ UD (5 ml) PO ONE (22:45)
[2017-10-16] MEDS: Levothyroxine 88 MCG TAB PO SCH (06:20)
[2017-10-16] MEDS: Simethicone 80 mg Chewtab PO PRN ×2 (06:20→11:41)
--- NOTE | 2017-10-16 07:41 | CP.PCM.PN ---
<Magan Barahona - Last Filed: 10/16/17 07:44> Subjective - Date & Time of Evaluation Date of Evaluation: 10/16/17 Time of Evaluation: 07:44 - Subjective Subjective: General Surgery Progress Note for Dr. Cadet Patient seen and examined at bedside. No acute event overnight. Patient states pain is much improved. She is passing gas and having large BMs.. She denies any fevers/chills or nausea/vomiting. She is tolerating clear liquids. No other complaints at this time. Objective - Vital Signs/Intake and Output Vital Signs (last 24 hours): Temp Pulse Resp BP Pulse Ox 97.7 F 70 18 151/78 H 99 10/16/17 00:16 10/16/17 00:16 10/16/17 00:16 10/16/17 00:16 10/16/17 00:16 - Medications Medications: Current Medications Amiodarone HCl (Cordarone) 200 mg PO Q12 [facility] Last Admin: 10/15/17 21:54 Dose: 200 mg Amlodipine Besylate (Norvasc) 2.5 mg PO DAILY [facility] Last Admin: 10/15/17 10:40 Dose: 2.5 mg Atorvastatin Calcium (Lipitor) 20 mg PO [facility] Last Admin: 10/15/17 21:54 Dose: 20 mg Enoxaparin Sodium (Lovenox) 40 mg SC DAILY [facility] PRN Reason: Protocol Last Admin: 10/15/17 10:40 Dose: 40 mg Hydrochlorothiazide (Hydrodiuril) 25 mg PO DAILY [facility] Last Admin: 10/15/17 10:42 Dose: 25 mg Insulin Detemir (Levemir) 40 units SC [facility] Last Admin: 10/15/17 21:58 Dose: 40 units Insulin Human Lispro (Humalog) 30 units SC BID [facility] Levothyroxine Sodium (Synthroid) 88 mcg PO DAILY@0630 [facility] Last Admin: 10/16/17 06:20 Dose: 88 mcg Morphine Sulfate (Morphine) 4 mg IVP Q6 PRN PRN Reason: Pain, severe (8-10) Last Admin: 10/13/17 23:20 Dose: 4 mg Morphine Sulfate (Morphine) 2 mg IVP Q6 PRN PRN Reason: Pain, moderate (4-7) Last Admin: 10/14/17 17:25 Dose: 2 mg Ondansetron HCl (Zofran Inj) 4 mg IVP Q6 PRN PRN Reason: Nausea/Vomiting Simethicone (Mylicon Chew Tab) 80 mg PO TID PRN PRN Reason: Flatulence Last Admin: 10/16/17 06:20 Dose: 80 mg Valsartan (Diovan) 160 mg PO DAILY [facility] Last Admin: 10/15/17 10:39 Dose: 160 mg - Labs Labs: 10/15/17 05:05 10/15/17 05:05 - Constitutional Appears: No Acute Distress - Head Exam Head Exam: ATRAUMATIC, NORMOCEPHALIC - ENT Exam ENT Exam: Mucous Membranes Moist - Respiratory Exam Respiratory Exam: NORMAL BREATHING PATTERN - Cardiovascular Exam Cardiovascular Exam: REGULAR RHYTHM - GI/Abdominal Exam GI & Abdominal Exam: Soft, Normal Bowel Sounds. absent: Distended, Guarding, Tenderness, Rebound - Neurological Exam Neurological Exam: Alert, Awake, Oriented x3 - Psychiatric Exam Psychiatric exam: Normal Affect, Normal Mood - Skin Skin Exam: Dry, Intact, Normal Color, Warm Assessment and Plan - Assessment and Plan (Free Text) Plan: 77F with ventral hernia admitted for SBO CLD, ADAT Simethicone Serial Abdominal exams Will discuss with Dr. Chichi Barahona PGY1 <Riaz Cadet - Last Filed: 10/16/17 14:26> Subjective - Date & Time of Evaluation Time of Evaluation: 14:00 - Subjective Subjective: Patient was seen and examined at the bedside. Agree with resident's note above. Objective - Vital Signs/Intake and Output Vital Signs (last 24 hours): Temp Pulse Resp BP Pulse Ox 97.8 F 70 20 121/63 99 10/16/17 09:02 10/16/17 10:39 10/16/17 09:02 10/16/17 10:39 10/16/17 09:02 - Medications Medications: Current Medications Amiodarone HCl (Cordarone) 200 mg PO Q12 [facility] Last Admin: 10/16/17 10:39 Dose: 200 mg Amlodipine Besylate (Norvasc) 2.5 mg PO DAILY [facility] Last Admin: 10/16/17 10:39 Dose: 2.5 mg Atorvastatin Calcium (Lipitor) 20 mg PO HS [facility] Last Admin: 10/15/17 21:54 Dose: 20 mg Enoxaparin Sodium (Lovenox) 40 mg SC DAILY [facility] PRN Reason: Protocol Last Admin: 10/16/17 10:40 Dose: 40 mg Hydrochlorothiazide (Hydrodiuril) 25 mg PO DAILY [facility] Last Admin: 10/16/17 10:41 Dose: 25 mg Insulin Detemir (Levemir) 40 units SC [facility] Last Admin: 10/15/17 21:58 Dose: 40 units Insulin Human Lispro (Humalog) 30 units SC BID [facility] Levothyroxine Sodium (Synthroid) 88 mcg PO DAILY@0630 [facility] Last Admin: 10/16/17 06:20 Dose: 88 mcg Morphine Sulfate (Morphine) 4 mg IVP Q6 PRN PRN Reason: Pain, severe (8-10) Last Admin: 10/13/17 23:20 Dose: 4 mg Morphine Sulfate (Morphine) 2 mg IVP Q6 PRN PRN Reason: Pain, moderate (4-7) Last Admin: 10/14/17 17:25 Dose: 2 mg Ondansetron HCl (Zofran Inj) 4 mg IVP Q6 PRN PRN Reason: Nausea/Vomiting Simethicone (Mylicon Chew Tab) 80 mg PO TID PRN PRN Reason: Flatulence Last Admin: 10/16/17 11:41 Dose: 80 mg Valsartan (Diovan) 160 mg PO DAILY [facility] Last Admin: 10/16/17 10:38 Dose: 160 mg - Labs Labs: 10/16/17 06:20 10/16/17 06:20 Assessment and Plan - Assessment and Plan (Free Text) Plan: - start regular diet - Will follow
[2017-10-16 07:55] LABS: BASO % 0.3 % (0.0-2.0); EOS # 0.4 K/uL (0.0-0.7); EOS % 3.6 % (0.0-4.0); HEMOGLOBIN 11.2 g/dL (12.0-16.0); LYMPH # 1.5 K/uL (1.0-4.3); LYMPH % 15.6 % (20.0-40.0); MEAN CELL VOLUME 81.1 fl (81.0-99.0); MEAN CORPUSCULAR HEMOGLOBIN 26.1 pg (27.0-31.0); MEAN CORPUSCULAR HGB CONC 32.2 g/dL (33.0-37.0); MEAN PLATELET VOLUME 8.6 fl (7.2-11.7); MONO # 1.1 K/uL (0.0-0.8); MONO % 10.8 % (0.0-10.0); NEUT # 6.9 K/uL (1.8-7.0); NEUT % 69.7 % (50.0-75.0); NRBC % 0.1 % (0.0-0.0); RBC 4.29 Mil/uL (3.80-5.20); RED CELL DISTRIBUTION WIDTH 24.6 % (11.5-14.5); WHITE BLOOD COUNT 9.9 K/uL (4.8-10.8)
[2017-10-16 08:02] LABS: BLOOD UREA NITROGEN 37 mg/dl (7-17); CALCIUM 7.9 mg/dL (8.4-10.2); GFR AFRICAN-AMERICAN > 60; GFR NON-AFRICAN AMERICAN 54
[2017-10-16 09:02] VITALS: RESP 20
[2017-10-16] MEDS: Enoxaparin 40 mg Syringe SC SCH (10:40)
[2017-10-16] MEDS: Insulin Detemir 100 Units/ml Inj SC SCH (22:55)
[2017-10-17] MEDS: Levothyroxine 88 MCG TAB PO SCH (06:13)
[2017-10-17 07:16] LABS: HEMOGLOBIN 11.5 g/dL (12.0-16.0); MEAN CELL VOLUME 81.9 fl (81.0-99.0); MEAN CORPUSCULAR HGB CONC 31.7 g/dL (33.0-37.0); RBC 4.44 Mil/uL (3.80-5.20); RED CELL DISTRIBUTION WIDTH 24.4 % (11.5-14.5); WHITE BLOOD COUNT 10.9 K/uL (4.8-10.8)
[2017-10-17 07:35] LABS: BLOOD UREA NITROGEN 25 mg/dl (7-17); CALCIUM 8.7 mg/dL (8.4-10.2); GFR AFRICAN-AMERICAN > 60; GFR NON-AFRICAN AMERICAN > 60
[2017-10-17 08:12] VITALS: BP 148/74; PULSE 61; TEMP 98.2; O2SAT 95
--- NOTE | 2017-10-17 08:27 | CP.PCM.PN ---
<Aren Johnson - Last Filed: 10/17/17 08:23> Subjective - Date & Time of Evaluation Date of Evaluation: 10/17/17 Time of Evaluation: 08:23 - Subjective Subjective: General Surgery Progress note for Dr. Cadet This 77F was seen and examined this Am at bedside. No acute events overnight. She is tolerating diet. Passing gas moving bowels, Denies nausea vomiting fevers chills or chest pain. Objective - Vital Signs/Intake and Output Vital Signs (last 24 hours): Temp Pulse Resp BP Pulse Ox 98.2 F 61 20 148/74 95 10/17/17 08:11 10/17/17 08:11 10/17/17 08:11 10/17/17 08:11 10/17/17 08:11 Intake and Output: 10/17/17 10/17/17 06:59 18:59 Intake Total 100 Output Total 500 Balance -400 - Medications Medications: Current Medications Amiodarone HCl (Cordarone) 200 mg PO Q12 [facility] Last Admin: 10/16/17 21:36 Dose: 200 mg Amlodipine Besylate (Norvasc) 2.5 mg PO DAILY [facility] Last Admin: 10/16/17 10:39 Dose: 2.5 mg Atorvastatin Calcium (Lipitor) 20 mg PO [facility] Last Admin: 10/16/17 21:36 Dose: 20 mg Enoxaparin Sodium (Lovenox) 40 mg SC DAILY [facility] PRN Reason: Protocol Last Admin: 10/16/17 10:40 Dose: 40 mg Hydrochlorothiazide (Hydrodiuril) 25 mg PO DAILY [facility] Last Admin: 10/16/17 10:41 Dose: 25 mg Insulin Detemir (Levemir) 40 units SC [facility] Last Admin: 10/16/17 22:55 Dose: 40 units Insulin Human Lispro (Humalog) 30 units SC BID [facility] Levothyroxine Sodium (Synthroid) 88 mcg PO DAILY@0630 [facility] Last Admin: 10/17/17 06:13 Dose: 88 mcg Morphine Sulfate (Morphine) 4 mg IVP Q6 PRN PRN Reason: Pain, severe (8-10) Last Admin: 10/13/17 23:20 Dose: 4 mg Morphine Sulfate (Morphine) 2 mg IVP Q6 PRN PRN Reason: Pain, moderate (4-7) Last Admin: 10/14/17 17:25 Dose: 2 mg Ondansetron HCl (Zofran Inj) 4 mg IVP Q6 PRN PRN Reason: Nausea/Vomiting Simethicone (Mylicon Chew Tab) 80 mg PO TID PRN PRN Reason: Flatulence Last Admin: 10/16/17 11:41 Dose: 80 mg Valsartan (Diovan) 160 mg PO DAILY [facility] Last Admin: 10/16/17 10:38 Dose: 160 mg - Labs Labs: 10/17/17 06:00 10/17/17 06:00 - Constitutional Appears: No Acute Distress - Head Exam Head Exam: ATRAUMATIC, NORMOCEPHALIC - ENT Exam ENT Exam: Mucous Membranes Moist - Respiratory Exam Respiratory Exam: NORMAL BREATHING PATTERN - Cardiovascular Exam Cardiovascular Exam: REGULAR RHYTHM - GI/Abdominal Exam GI & Abdominal Exam: Soft, Normal Bowel Sounds. absent: Distended, Guarding, Tenderness, Rebound - Neurological Exam Neurological Exam: Alert, Awake, Oriented x3 - Psychiatric Exam Psychiatric exam: Normal Affect, Normal Mood - Skin Skin Exam: Dry, Intact, Normal Color, Warm Assessment and Plan - Assessment and Plan (Free Text) Assessment: 77F with ventral hernia admitted for SBO Pt tolerating regular diet, moving bowels regularly without pain. SBO resolved Clear for discharge at discretion of the primary team D/W Dr. Chichi Johnson PGY2 <Riaz Cadet - Last Filed: 10/17/17 14:30> Subjective - Date & Time of Evaluation Time of Evaluation: 14:00 - Subjective Subjective: Patient was seen and examined at the bedside. Agree with resident's note above. Objective - Vital Signs/Intake and Output Vital Signs (last 24 hours): Temp Pulse Resp BP Pulse Ox 98.2 F 61 20 148/74 95 10/17/17 08:11 10/17/17 08:46 10/17/17 08:11 10/17/17 08:46 10/17/17 08:11 Intake and Output: 10/17/17 10/17/17 06:59 18:59 Intake Total 100 Output Total 500 Balance -400 - Medications Medications: Current Medications Amiodarone HCl (Cordarone) 200 mg PO Q12 [facility] Last Admin: 10/17/17 08:45 Dose: 200 mg Amlodipine Besylate (Norvasc) 2.5 mg PO DAILY [facility] Last Admin: 10/17/17 08:46 Dose: 2.5 mg Atorvastatin Calcium (Lipitor) 20 mg PO [facility] Last Admin: 10/16/17 21:36 Dose: 20 mg Hydrochlorothiazide (Hydrodiuril) 25 mg PO DAILY [facility] Last Admin: 10/17/17 08:45 Dose: 25 mg Insulin Detemir (Levemir) 40 units SC [facility] Last Admin: 10/16/17 22:55 Dose: 40 units Insulin Human Lispro (Humalog) 30 units SC BID [facility] Levothyroxine Sodium (Synthroid) 88 mcg PO DAILY@0630 [facility] Last Admin: 10/17/17 06:13 Dose: 88 mcg Ondansetron HCl (Zofran Inj) 4 mg IVP Q6 PRN PRN Reason: Nausea/Vomiting Simethicone (Mylicon Chew Tab) 80 mg PO TID PRN PRN Reason: Flatulence Last Admin: 10/16/17 11:41 Dose: 80 mg Valsartan (Diovan) 160 mg PO DAILY [facility] Last Admin: 10/17/17 08:45 Dose: 160 mg - Labs Labs: 10/17/17 06:00 10/17/17 06:00
[2017-10-17] MEDS: Enoxaparin 40 mg Syringe SC SCH (08:46)
[2017-10-17 09:10] LABS: SQUAMOUS EPITHIAL 3 /hpf (0-5); URINE BACTERIA MANY (<OCC); URINE BILIRUBIN NEGATIVE (NEGATIVE); URINE BLOOD SMALL (NEGATIVE); URINE CLARITY SLIGHTY-CLOUDY (Clear); URINE COLOR YELLOW (YELLOW); URINE GLUCOSE (UA) NEG (Normal); URINE LEUKOCYTE ESTERASE NEG Leu/uL (Negative); URINE PROTEIN NEGATIVE (NEGATIVE); URINE UROBILINOGEN 0.2-1.0 mg/dL (0.2-1.0)
--- NOTE | 2017-10-17 12:03 | CP.PCM.DIS ---
Provider - Provider Date of Admission: 10/13/17 07:10 Attending physician: Devorah Malik MD Consults: Dr Riaz Cadet, Surgery. Time Spent in preparation of Discharge (in minutes): 30 Diagnosis - Discharge Diagnosis (1) Partial small bowel obstruction Status: Resolved (2) Hypertension Status: Chronic (3) Diabetes mellitus Status: Chronic (4) CHF (congestive heart failure) Status: Chronic Hospital Course - Lab Results Lab Results: Most Recent Lab Values WBC 10.9 K/uL (4.8-10.8) H 10/17/17 06:00 RBC 4.44 Mil/uL (3.80-5.20) 10/17/17 06:00 Hgb 11.5 g/dL (12.0-16.0) L 10/17/17 06:00 Hct 36.4 % (34.0-47.0) 10/17/17 06:00 MCV 81.9 fl (81.0-99.0) 10/17/17 06:00 MCH 26.0 pg (27.0-31.0) L 10/17/17 06:00 MCHC 31.7 g/dL (33.0-37.0) L 10/17/17 06:00 RDW 24.4 % (11.5-14.5) H 10/17/17 06:00 Plt Count 352 K/uL (130-400) 10/17/17 06:00 MPV 8.6 fl (7.2-11.7) 10/16/17 06:20 Neut % (Auto) 69.7 % (50.0-75.0) 10/16/17 06:20 Lymph % (Auto) 15.6 % (20.0-40.0) L 10/16/17 06:20 [place] % (Auto) 10.8 % (0.0-10.0) H 10/16/17 06:20 Eos % (Auto) 3.6 % (0.0-4.0) 10/16/17 06:20 Baso % (Auto) 0.3 % (0.0-2.0) 10/16/17 06:20 Neut # (Auto) 6.9 K/uL (1.8-7.0) 10/16/17 06:20 Lymph # (Auto) 1.5 K/uL (1.0-4.3) 10/16/17 06:20 [place] # (Auto) 1.1 K/uL (0.0-0.8) H 10/16/17 06:20 Eos # (Auto) 0.4 K/uL (0.0-0.7) 10/16/17 06:20 Baso # (Auto) 0.0 K/uL (0.0-0.2) 10/16/17 06:20 pO2 36 mm/Hg (30-55) 10/13/17 03:34 VBG pH 7.40 (7.32-7.43) 10/13/17 03:34 VBG pCO2 52 mmHg (40-60) 10/13/17 03:34 VBG HCO3 28.8 mmol/L 10/13/17 03:34 VBG Total CO2 33.8 mmol/L (22-28) H 10/13/17 03:34 VBG O2 Sat (Calc) 64.0 % (40-65) 10/13/17 03:34 VBG Base Excess 6.0 mmol/L (0.0-2.0) H 10/13/17 03:34 VBG Potassium 4.5 mmol/L (3.6-5.2) 10/13/17 03:34 Sodium 136.0 mmol/L (132-148) 10/13/17 03:34 Chloride 110.0 mmol/L (98-107) H 10/13/17 03:34 Glucose 279 mg/dL (65-105) H 10/13/17 03:34 Lactate 2.0 mmol/L (0.7-2.1) 10/13/17 03:34 FiO2 21.0 % 10/13/17 03:34 Sodium 146 mmol/l (132-148) 10/17/17 06:00 Potassium 4.0 MMOL/L (3.6-5.0) 10/17/17 06:00 Chloride 108 mmol/L (98-107) H 10/17/17 06:00 Carbon Dioxide 23 mmol/L (22-30) 10/17/17 06:00 Anion Gap 19 (10-20) 10/17/17 06:00 BUN 25 mg/dl (7-17) H 10/17/17 06:00 Creatinine 0.9 mg/dl (0.7-1.2) 10/17/17 06:00 Est GFR ( Amer) > 60 10/17/17 06:00 Est GFR (Non-Af Amer) > 60 10/17/17 06:00 POC Glucose (mg/dL) 163 mg/dL (65-110) H 10/17/17 10:56 Random Glucose 109 mg/dL (65-105) H 10/17/17 06:00 Calcium 8.7 mg/dL (8.4-10.2) 10/17/17 06:00 Total Bilirubin 0.9 mg/dl (0.2-1.3) 10/14/17 05:30 AST 18 U/L (14-36) 10/14/17 05:30 ALT 33 U/L (9-52) 10/14/17 05:30 Alkaline Phosphatase 108 U/L (38-126) 10/14/17 05:30 Troponin I < 0.0120 ng/mL (0.00-0.120) 10/13/17 03:41 Total Protein 7.0 G/DL (6.3-8.2) 10/14/17 05:30 Albumin 3.3 g/dL (3.5-5.0) L 10/14/17 05:30 Globulin 3.7 gm/dL (2.2-3.9) 10/14/17 05:30 Albumin/Globulin Ratio 0.9 (1.0-2.1) L 10/14/17 05:30 Lipase 30 U/L (23-300) 10/13/17 03:41 Venous Blood Potassium 4.5 mmol/L (3.6-5.2) 10/13/17 03:34 Urine Color Yellow (YELLOW) 10/17/17 08:51 Urine Clarity Slighty-cloudy (Clear) 10/17/17 08:51 Urine pH 5.0 (5.0-8.0) 10/17/17 08:51 Ur Specific [place] 1.017 (1.003-1.030) 10/17/17 08:51 Urine Protein Negative mg/dL (NEGATIVE) 04 08:51 Urine Glucose (UA) Neg mg/dL (Normal) 10/17/17 08:51 Urine Ketones Negative mg/dL (NEGATIVE) 10/17/17 08:51 Urine Blood Small (NEGATIVE) 10/17/17 08:51 Urine Nitrate Positive (NEGATIVE) H 10/17/17 08:51 Urine Bilirubin Negative (NEGATIVE) 10/17/17 08:51 Urine Urobilinogen 0.2-1.0 mg/dL (0.2-1.0) 10/17/17 08:51 Ur Leukocyte Esterase Neg Di/uL (Negative) 10/17/17 08:51 Urine RBC (Auto) 2 /hpf (0-3) 10/17/17 08:51 Urine Microscopic WBC 3 /hpf (0-5) 10/13/17 09:54 Ur Squamous Epith Cells 3 /hpf (0-5) 10/17/17 08:51 Urine Bacteria Many (<OCC) H 10/17/17 08:51 - Hospital Course Hospital Course: 77 y/o morbidly obese female with PMHx remarkable for moderate peristent asthma , CAD s/p quad CABG, HTN, HLD, IDDM2, OA, Anemia and hypothyroidism admitted due to partial SBO. Both ABD XR and CT were positive for SBO. Surgery was on board of management with NGT placement, IV fluids and pain control. Diet was advanced as tolerated, labs wnl, patient stable and asymptomatic at discharge time. Patient has f/u appt with PMD Dr Darby on 10/21/17 at 3:00 pm at [facility], and f /u with Surgery Dr Cadet. Discharge Exam - Head Exam Head Exam: ATRAUMATIC, NORMOCEPHALIC - Eye Exam Eye Exam: EOMI, PERRL - Respiratory Exam Respiratory Exam: Clear to PA & Lateral. absent: Accessory Muscle Use, Rales, Rhonchi, Wheezes - Cardiovascular Exam Cardiovascular Exam: REGULAR RHYTHM, +S1, +S2. absent: Tachycardia - GI/Abdominal Exam GI & Abdominal Exam: Normal Bowel Sounds, Soft. absent: Distended, Tenderness - Neurological Exam Neurological exam: Alert, CN II-XII Intact, Oriented x3 - Psychiatric Exam Psychiatric exam: Normal Mood - Skin Skin Exam: Dry, Warm Discharge Plan - Follow Up Plan Condition: FAIR Disposition: HOME/ ROUTINE Patient education suggested?: Yes Instructions: Mechanical Bowel Obstruction (DC), Small Bowel Obstruction (DC) Additional Instructions: F/U with PCP Dr Darby on 10/21/17 at 3:20 pm at [facility] Advice stop Iron sulfate due to constipation ER precautions. Referrals: Riaz Cadet MD [Staff Provider] - [facility] [place] [Outside]
--- NOTE | 2017-10-17 13:22 | PN ---
FOLLOWUP NOTE DATE OF FOLLOWUP: 10/17/2017 TIME OF FOLLOWUP: Roughly at 11:40 p.m. SUBJECTIVE: The patient is feeling much more comfortable today. Her NG tube is out and she is slowly tolerating a diet. She is currently voiding with usual normal stream and has no urinary complaints. She is currently has no dysuria, gross hematuria, renal colic or abdominal pain. LABORATORY DATA: Her urinalysis today 10/17/2017 shows the color was yellow, the urine is slightly cloudy, pH was 5.0, specific gravity 1.017. Protein, glucose and ketones were all negative. Small blood, positive nitrate, negative bilirubin, and urobilinogen 0.2 to 1.0. Leukocyte esterase negative. Rbc's of 2 which is improved from her previous urinalysis, which showed 18 rbc's and she has many bacteria. Her urine culture is pending. PHYSICAL EXAMINATION: ABDOMEN: Soft and not distended or tender. No CVA tenderness. GENITOURINARY: No suprapubic tenderness. PLAN: Plan for this patient is okay to discharge the patient home on any type of antibiotic, she requires from original admission and followup with her urine culture, if it is negative for any bacteria, then just observation at this time. The patient can be seen in office for followup in about 2 weeks. James Huff MD [facility] # [id number]
[2017-10-17] MEDS: Simethicone 80 mg Chewtab PO PRN (15:07)
== END 2017-10-17 15:20 | disposition home health service (06) | DRG 395 ==
LOC: H.ER 01:39 → H.ERHOLD 07:10 → H.MEDSURG1 15:45
PROVIDERS: ADMIT Family Medicine Geriatric Medicine; ATTEND Family Medicine Geriatric Medicine
DX: K43.6 Other and unspecified ventral hernia with obstruction, without gangrene (principal); E66.01 Morbid (severe) obesity due to excess calories; Z68.37 Body mass index [BMI] 37.0-37.9, adult; I48.2 Chronic atrial fibrillation; I25.10 Atherosclerotic heart disease of native coronary artery without angina pectoris; J45.40 Moderate persistent asthma, uncomplicated; E11.9 Type 2 diabetes mellitus without complications; N30.80 Other cystitis without hematuria; E03.9 Hypothyroidism, unspecified; E78.5 Hyperlipidemia, unspecified; D64.9 Anemia, unspecified; I10 Essential (primary) hypertension; J44.9 Chronic obstructive pulmonary disease, unspecified; M19.90 Unspecified osteoarthritis, unspecified site; Z66 Do not resuscitate; F17.200 Nicotine dependence, unspecified, uncomplicated; Z95.1 Presence of aortocoronary bypass graft; Z88.1 Allergy status to other antibiotic agents; Z79.02 Long term (current) use of antithrombotics/antiplatelets; Z79.4 Long term (current) use of insulin; Z79.84 Long term (current) use of oral hypoglycemic drugs; Z90.49 Acquired absence of other specified parts of digestive tract

== ENCOUNTER 2018-02-23 14:50 | Emergency (ER) | payer MEDICARE, MEDICAID ==
[2018-02-23 14:50] VITALS: BMI 37.8
[2018-02-23 15:44] VITALS: O2SAT 99
--- NOTE | 2018-02-23 15:55 | ED PDOC ---
Upper Extremity Pain/Injury Time Seen by Provider: 02/23/18 15:35 Chief Complaint (Nursing): Upper Extremity Problem/Injury Chief Complaint (Provider): Right elbow and hand pain; left neck pain History Per: Patient History/Exam Limitations: no limitations Onset/Duration Of Symptoms: Days Current Symptoms Are (Timing): Still Present Quality: "Pain" Additional History Per: Patient Additional Complaint(s): 77yo female, history of diabetes, hypertension, CABG, comes to ER for evaluation of a spontaneous and atraumatic right elbow, right hand and left neck pain since last night. She denies any injuries to the site and states she took Tylenol with mild relief of pain. She denies any weakness or numbness in her extremities, chest pain, shortness of breath, abdominal pain, fever or chills. She denies any other complaints. Past Medical History Reviewed: Historical Data, Nursing Documentation, Vital Signs Vital Signs: Last Vital Signs Temp 98.4 F 02/23/18 15:10 Pulse 77 02/23/18 15:44 Resp 19 02/23/18 15:44 BP 150/75 02/23/18 15:44 Pulse Ox 99 02/23/18 15:44 - Medical History PMH: CAD, COPD, Diabetes, HTN Denies: Chronic Kidney Disease - Surgical History Surgical History: Appendectomy, CABG (x4), Cholecystectomy - Family History Family History: States: No Known Family Hx - Living Arrangements Living Arrangements: With Family - Home Medications Home Medications: Ambulatory Orders Medication Instructions Recorded ALPRAZolam [Xanax] 0.25 mg PO Q12 PRN 09/21/17 Amiodarone [Cordarone] 200 mg PO Q12 09/21/17 Atorvastatin [Lipitor] 20 mg PO HS 09/21/17 Clopidogrel [Plavix] 75 mg PO DAILY 09/21/17 Docusate [Colace] 100 mg PO DAILY PRN 09/21/17 Ergocalciferol (Vitamin D2) 50,000 unit PO TH 09/21/17 [Vitamin D2] Insulin Aspart, Recombinant 30 unit SC BID 09/21/17 [Novolog] Insulin Glargine, Recombina 40 unit SC HS 09/21/17 [Lantus] Levothyroxine [Synthroid] 100 mcg PO DAILY 09/21/17 MetFORMIN [glucoPHAGE] 1,000 mg PO BID 09/21/17 Valsartan/Hydrochlorothiazide 1 tab PO DAILY 09/21/17 [Diovan Hct 160-25 mg Tablet] Zolpidem [Ambien] 10 mg PO HS 09/21/17 amLODIPine [Norvasc] 2.5 mg PO DAILY 09/21/17 Icosapent Ethyl [Vascepa] 1 gm PO BID 10/13/17 Gabapentin 300 mg PO HS #10 capsule 02/23/18 Naproxen 500 mg PO BID #20 tab 02/23/18 - Allergies Allergies/Adverse Reactions: Allergies Allergy/AdvReac Type Severity Reaction Status Date / Time ciprofloxacin [From Cipro] Allergy RASH Verified 09/21/17 15:12 ciprofloxacin HCl Allergy RASH Verified 09/21/17 15:12 [From Cipro] Review of Systems ROS Statement: Except As Marked, All Systems Reviewed And Found Negative Constitutional: Negative for: Fever, Chills Cardiovascular: Negative for: Chest Pain Respiratory: Negative for: Shortness of Breath Gastrointestinal: Negative for: Nausea, Vomiting, Abdominal Pain, Diarrhea Musculoskeletal: Positive for: Neck Pain (left), Arm Pain (right elbow), Hand Pain (right) Neurological: Negative for: Weakness, Numbness Physical Exam - Reviewed Nursing Documentation Reviewed: Yes Vital Signs Reviewed: Yes - Physical Exam Appears: Positive for: Non-toxic, No Acute Distress Head Exam: Positive for: ATRAUMATIC, NORMAL INSPECTION, NORMOCEPHALIC Skin: Positive for: Normal Color Eye Exam: Positive for: Normal appearance, EOMI Neck: Positive for: Normal (no tenderness to palpation noted to left side of neck), Supple Cardiovascular/Chest: Positive for: Regular Rate, Rhythm, Chest Non Tender Respiratory: Positive for: Normal Breath Sounds. Negative for: Wheezing Pulses-Radial (L): 2+ Pulses-Radial (R): 2+ Gastrointestinal/Abdominal: Positive for: Normal Exam, Soft. Negative for: Tenderness Back: Positive for: Normal Inspection Extremity: Positive for: Normal ROM (FROM at right hand, no pain noted.), Capillary Refill (< 2 seconds), Other (+ Pain with ROM at right elbow.). Negative for: Deformity, Swelling Neurologic/Psych: Positive for: Alert, Oriented. Negative for: Motor/Sensory Deficits - Laboratory Results Result Diagrams: 02/23/18 16:35 02/23/18 16:35 - ECG ECG: Positive for: Interpreted By Me, Viewed By Me ECG Rhythm: Positive for: Normal QRS, Normal ST Segment, Sinus Rhythm, 1st Degree Heart Block Rate: 76 O2 Sat by Pulse Oximetry: 99 (RA) Pulse Ox Interpretation: Normal - Progress Re-evaluation Time: 18:13 Condition: Re-examined, Improved Medical Decision Making Medical Decision Making: Impression: Left sided neck pain, right arm and right hand pain Differential: Peripheral neuropathy, right musculoskeletal neck pain, less likely atypical ACS Plan: -- EKG -- Labs -- Flexeril 10mg PO -- Toradol 15mg IV 1813 Patient reports improvement in pain and is stable for d/c home. Instructed to follow up with PMD in 2-3 days. Scribe Attestation: Documented by Marisa Garcia, acting as a scribe for Ahmet Elmore MD. Provider Scribe Attestation: All medical record entries made by the Scribe were at my direction and personally dictated by me. I have reviewed the chart and agree that the record accurately reflects my personal performance of the history, physical exam, medical decision making, and the department course for this patient. I have also personally directed, reviewed, and agree with the discharge instructions and disposition. Disposition - Clinical Impression Clinical Impression: Arm pain, right, Neck pain - Patient ED Disposition Is Patient to be Admitted: No Doctor Will See Patient In The: Office Counseled Patient/Family Regarding: Studies Performed, Diagnosis, Need For Followup - Disposition Disposition: Routine/Home Disposition Time: 18:14 Condition: GOOD Additional Instructions: Take your medications as instructed. Follow up with your PCP in 2-3 days. Prescriptions: Gabapentin 300 mg PO HS #10 capsule Naproxen 500 mg PO BID #20 tab Instructions: Peripheral Neuropathy, Neck Pain Print Language: BANGLADES[place]
[2018-02-23 16:50] LABS: BASO % 0.4 % (0.0-2.0); EOS # 0.2 K/uL (0.0-0.7); EOS % 1.6 % (0.0-4.0); HEMOGLOBIN 11.9 g/dL (12.0-16.0); LYMPH # 2.3 K/uL (1.0-4.3); LYMPH % 22.4 % (20.0-40.0); MEAN CELL VOLUME 85.5 fl (81.0-99.0); MEAN CORPUSCULAR HEMOGLOBIN 28.2 pg (27.0-31.0); MEAN PLATELET VOLUME 8.1 fl (7.2-11.7); MONO # 0.8 K/uL (0.0-0.8); MONO % 7.8 % (0.0-10.0); NEUT % 67.8 % (50.0-75.0); RBC 4.2 Mil/uL (3.80-5.20); RED CELL DISTRIBUTION WIDTH 15.9 % (11.5-14.5); WHITE BLOOD COUNT 10.4 K/uL (4.8-10.8)
[2018-02-23 17:00] LABS: BLOOD UREA NITROGEN 15 mg/dl (7-17); CALCIUM 9.3 mg/dL (8.4-10.2); GFR AFRICAN-AMERICAN > 60; GFR NON-AFRICAN AMERICAN > 60
[2018-02-23 18:39] VITALS: BP 156/76; PULSE 67; RESP 17; TEMP 97.6
--- NOTE | 2018-02-24 08:33 | CARD ---
APPROVED REPORT Date of service: 02/23/2018 <Conclusion> Sinus rhythm with 1st degree AV block Inferior infarct, age undetermined Abnormal ECG
== END 2018-02-23 18:41 | disposition home or self-care (01) ==
LOC: H.ER 14:50
DX: M54.2 Cervicalgia (principal); M25.521 Pain in right elbow; E11.9 Type 2 diabetes mellitus without complications; Z79.4 Long term (current) use of insulin; Z95.1 Presence of aortocoronary bypass graft
CPT/HCPCS: 80048; 84484; 85025; 93005; 96374; 99284; J1885

== ENCOUNTER 2018-10-01 13:41 | Observation (INO) | payer MEDICARE, MEDICAID ==
[2018-10-01 13:42] VITALS: BMI 37.8
[2018-10-01] MEDS ORDERED: Sodium Chloride 0.9% 1,000 ML IV STA ×2 (14:54→22:26)
[2018-10-01] MEDS ORDERED: Iohexol 240 (50 ml) PO ONE (14:54)
--- NOTE | 2018-10-01 14:54 | ED PDOC ---
HPI: Abdomen Time Seen by Provider: 10/01/18 14:32 Chief Complaint (Nursing): Abdominal Pain Chief Complaint (Provider): Abdominal Pain History Per: Patient History/Exam Limitations: no limitations Onset/Duration Of Symptoms: Days (x1) Current Symptoms Are (Timing): Still Present Additional Complaint(s): 78 year old female presents to the ED for evaluation of mid to lower abdominal pain since last night upon laying down in bed associated with some mild nausea and low back pain. Otherwise, denies fever, chills, vomiting, diarrhea, urinary symptoms, shortness of breath, and chest pain. Of note, patient has had multiple abdominal surgeries. PMD: David Benavides Past Medical History Reviewed: Historical Data, Nursing Documentation, Vital Signs Vital Signs: Last Vital Signs Temp 98.6 F 10/01/18 14:21 Pulse 78 10/01/18 14:21 Resp 18 10/01/18 14:21 BP 187/63 H 10/01/18 14:21 Pulse Ox 94 L 10/01/18 14:21 - Medical History PMH: CAD, COPD, Diabetes, HTN Denies: Chronic Kidney Disease Other PMH: hernia - Surgical History Surgical History: Appendectomy, CABG (x4), Cholecystectomy, Hernia Repair - Family History Family History: States: Unknown Family Hx - Social History Current smoker - smoking cessation education provided: No Ex-Smoker (has not smoked in the last 12 months): Yes Alcohol: None Drugs: Denies - Immunization History Hx Tetanus Toxoid Vaccination: No Hx Influenza Vaccination: No Hx Pneumococcal Vaccination: No - Home Medications Home Medications: Ambulatory Orders Medication Instructions Recorded ALPRAZolam [Xanax] 0.25 mg PO Q12 PRN 09/21/17 Amiodarone [Cordarone] 200 mg PO Q12 09/21/17 Atorvastatin [Lipitor] 20 mg PO HS 09/21/17 Clopidogrel [Plavix] 75 mg PO DAILY 09/21/17 Docusate [Colace] 100 mg PO DAILY PRN 09/21/17 Ergocalciferol (Vitamin D2) 50,000 unit PO TH 09/21/17 [Vitamin D2] Insulin Aspart, Recombinant 30 unit SC BID 09/21/17 [Novolog] Insulin Glargine, Recombina 40 unit SC HS 09/21/17 [Lantus] Levothyroxine [Synthroid] 100 mcg PO DAILY 09/21/17 MetFORMIN [glucoPHAGE] 1,000 mg PO BID 09/21/17 Valsartan/Hydrochlorothiazide 1 tab PO DAILY 09/21/17 [Diovan Hct 160-25 mg Tablet] Zolpidem [Ambien] 10 mg PO HS 09/21/17 amLODIPine [Norvasc] 2.5 mg PO DAILY 09/21/17 Icosapent Ethyl [Vascepa] 1 gm PO BID 10/13/17 Gabapentin 300 mg PO HS #10 capsule 02/23/18 Naproxen 500 mg PO BID #20 tab 02/23/18 - Allergies Allergies/Adverse Reactions: Allergies Allergy/AdvReac Type Severity Reaction Status Date / Time ciprofloxacin [From Cipro] Allergy RASH Verified 10/01/18 14:19 ciprofloxacin HCl Allergy RASH Verified 10/01/18 14:19 [From Cipro] Review of Systems ROS Statement: Except As Marked, All Systems Reviewed And Found Negative Constitutional: Negative for: Fever, Chills Cardiovascular: Negative for: Chest Pain Respiratory: Negative for: Shortness of Breath Gastrointestinal: Positive for: Nausea, Abdominal Pain (mid to lower). Negative for: Vomiting, Diarrhea Genitourinary Female: Negative for: Dysuria, Frequency, Incontinence Musculoskeletal: Positive for: Back Pain (mild lower) Physical Exam - Reviewed Nursing Documentation Reviewed: Yes Vital Signs Reviewed: Yes - Physical Exam Appears: Positive for: No Acute Distress Head Exam: Positive for: ATRAUMATIC, NORMOCEPHALIC Skin: Positive for: Normal Color, Warm. Negative for: Rash Eye Exam: Positive for: Normal appearance Neck: Positive for: Normal, Painless ROM, Supple Cardiovascular/Chest: Positive for: Regular Rate, Rhythm Respiratory: Positive for: Normal Breath Sounds. Negative for: Respiratory Distress Gastrointestinal/Abdominal: Positive for: Soft, Tenderness (tenderness to mid abdomen below umbilical region), Other (multiple surgical scars noted) Back: Positive for: Normal Inspection Neurological/Psych: Positive for: Awake, Alert, Oriented (x3) - Laboratory Results Result Diagrams: 10/01/18 15:13 10/01/18 15:13 Lab Results: 358 glucose - ECG O2 Sat by Pulse Oximetry: 94 (RA) Pulse Ox Interpretation: Abnormal Interpretation Of Abnormal: hx COPD - Progress ED Course And Treament: 1855: Stable. Dr. Meredith to fu on CT. AAOx3. Medical Decision Making Medical Decision Making: Time: 1452 Initial Impression: abdominal pain Initial Plan: --CT abdomen/pelvis with PO and IV contrast --CMP --U-dip --CBC with differential --Normal saline IV --Iohexol 50mg PO --Pepcid 20mg IVP --Toradol 15mg IVP --Urinalysis --Reevaluation -------- --------- Scribe Attestation: Documented by Tish Carreon, acting as a scribe for Silvano Toure MD. Provider Scribe Attestation: All medical record entries made by the Scribe were at my direction and personally dictated by me. I have reviewed the chart and agree that the record accurately reflects my personal performance of the history, physical exam, medical decision making, and the department course for this patient. I have also personally directed, reviewed, and agree with the discharge instructions and dis position. Disposition - Clinical Impression Clinical Impression: Abdominal pain - Patient ED Disposition Is Patient to be Admitted: Transfer of Care - Disposition Disposition Time: 19:00 Condition: FAIR Patient Signed Over To: Fernando Meredith
[2018-10-01 15:19] LABS: BASO # 0.1 K/uL (0.0-0.2); BASO % 0.6 % (0.0-2.0); EOS # 0.2 K/uL (0.0-0.7); HEMOGLOBIN 11.5 g/dL (12.0-16.0); LYMPH # 1.7 K/uL (1.0-4.3); MEAN CELL VOLUME 84.4 fl (81.0-99.0); MEAN CORPUSCULAR HEMOGLOBIN 27.9 pg (27.0-31.0); MEAN PLATELET VOLUME 8.3 fl (7.2-11.7); MONO # 0.8 K/uL (0.0-0.8); MONO % 7.3 % (0.0-10.0); NEUT % 74.1 % (50.0-75.0); NRBC % 0.1 % (0.0-0.0); RBC 4.11 Mil/uL (3.80-5.20); RED CELL DISTRIBUTION WIDTH 18.5 % (11.5-14.5); WHITE BLOOD COUNT 10.8 K/uL (4.8-10.8)
[2018-10-01] MEDS ORDERED: Iohexol 240 (50 ml) ONE (15:34)
[2018-10-01 15:36] LABS: ALBUMIN 3.8 g/dL (3.5-5.0); ALT/SGPT 26 U/L (9-52); AST/SGOT 29 U/L (14-36); BLOOD UREA NITROGEN 20 mg/dl (7-17); CALCIUM 9.2 mg/dL (8.4-10.2); GFR NON-AFRICAN AMERICAN > 60
[2018-10-01] MEDS ORDERED: Sodium Chloride 0.9% 50 ML IV ONE (17:58)
[2018-10-01] MEDS ORDERED: Iohexol 300 100 ML IJ ONE (17:58)
[2018-10-01 19:25] LABS: SQUAMOUS EPITHIAL 3 /hpf (0-5); URINE BILIRUBIN NEGATIVE (NEGATIVE); URINE BLOOD NEGATIVE (NEGATIVE); URINE CLARITY CLEAR (Clear); URINE COLOR YELLOW (YELLOW); URINE GLUCOSE (UA) 50 mg/dL (NEGATIVE); URINE LEUKOCYTE ESTERASE NEG Leu/uL (Negative); URINE PROTEIN NEGATIVE (NEGATIVE); URINE UROBILINOGEN 0.2-1.0 mg/dL (0.2-1.0)
--- NOTE | 2018-10-01 19:31 | ED PDOC ---
- Laboratory Results Result Diagrams: 10/01/18 15:13 10/01/18 15:13 Lab Results: Total Bilirubin 0.6 mg/dl (0.2-1.3) 10/01/18 15:13 AST 29 U/L (14-36) 10/01/18 15:13 ALT 26 U/L (9-52) 10/01/18 15:13 Alkaline Phosphatase 134 U/L (38-126) H D 10/01/18 15:13 Total Protein 7.6 G/DL (6.3-8.2) 10/01/18 15:13 Albumin 3.8 g/dL (3.5-5.0) 10/01/18 15:13 Globulin 3.8 gm/dL (2.2-3.9) 10/01/18 15:13 Albumin/Globulin Ratio 1.0 (1.0-2.1) 10/01/18 15:13 - ECG O2 Sat by Pulse Oximetry: 94 (RA) Medical Decision Making Medical Decision Making: Time: 1899 --Patient is endorsed to provider by Dr. Toure, pending CT ABD/pelvis results. Time: 2016 --CT ABD/pelvis FINDINGS: LUNG BASES: The lung bases appear clear. No pleural effusions are seen. LIVER: Unremarkable. GALLBLADDER AND BILE DUCTS: Gallbladder has been surgically removed. PANCREAS: Unremarkable. SPLEEN: Unremarkable. ADRENAL GLANDS: Unremarkable. KIDNEYS, URETERS, AND BLADDER: Subcentimeter nonobstructing right renal calculi present. There is no hydronephrosis or hydroureter. No urinary calculi are seen. STOMACH AND BOWEL: There is a small anterior wall abdominal hernia at the upper mid abdomen which contains a small portion of the stomach without evidence of obstruction. There are multiple fluid-filled and contrast-filled mild to moderately distended loops of small bowel in the abdomen and pelvis down to the level of another anterior wall abdominal hernia at the lower pelvic region containing a loop of small bowel. The more distal small bowel within the lower pelvis does not appear particularly dilated. Note is made of the thickening of the soft tissues of the anterior abdominal wall at the pelvic region. Postsurgical changes and small am ount of mesh material seen at the anterior abdominal wall in the midline. Some fecal material seen scattered throughout the colon. PERITONEUM: No free fluid. No free air. LYMPH NODES: No lymphadenopathy is evident. REPRODUCTIVE: Unremarkable as visualized. VASCULATURE: No evidence of abdominal aortic aneurysm. BONES: No aggressive appearing osseous lesion. No acute osseous pathology evident. IMPRESSION: Status post cholecystectomy. There are two anterior wall abdominal hernias. T he hernia at the upper abdomen anteriorly contains a portion of the stomach and does not appear to be causing any obstruction. The more inferior hernia contains a loop of small bowel with dilatation of the more proximal small bowel raising suspicion of at least partial obstruction to the small bowel in this region. Postsurgical changes are suspected within the abdomen and pelvis and underlying adhesions may also be present. Close clinical correlation and surgical consultation advised. Time: 2151 --Surgical consult placed for resident. Time: 2244 --Patient evaluated by Dr. Kimble at bedside who was able to reduce hernia. Patient is reporting persistent pain status post reduction. Given patient's age and risk factors, she will be admitted overnight for observation. Dr. Meyer made aware of case. Scribe Attestation: Documented by Damaris Mcguire, acting as a scribe for Fernando Meredith MD. Provider Scribe Attestation: All medical record entries made by the Scribe were at my direction and personally dictated by me. I have reviewed the chart and agree that the record accurately reflects my personal performance of the history, physical exam, medical decision making, and the department course for this patient. I have also personally directed, reviewed, and agree with the discharge instructions and disposition. Disposition - Clinical Impression Clinical Impression: Abdominal pain, Small bowel obstruction, Abdominal wall hernia - POA Present On Arrival: None - Disposition Disposition: Admitted as In-Patient Disposition Time: 22:45 Condition: FAIR
--- NOTE | 2018-10-01 22:43 | CP.PCM.CON ---
<Jhonatan Kimble - Last Filed: 10/01/18 22:40> History of Present Illness - History of Present Illness History of Present Illness: General Surgery: Dr Cadet Pt is a 78F with PMH of HTN and DM. Pt also reports a history of "ten abdominal surgeries" including but not limited to cholecystectomy, incarcerated inguinal hernia, and ex-lap for SBO (pt cannot recall the remaining surgeries). Pt presents today with new onset lower abdominal pain which started earlier this morning. Pain is located in the suprapubic region at the site of her midline incision. She reports the pain has been accompanied by nausea, and she has not had an appetite most of the day. She denies any emesis. Last BM was yesterday, normal in caliber. Pt reports she does not have bowel movements every day and t akes colace for constipation. She continues to pass flatus however. She denies any fevers, chills, sob or chest pain. CT in ED demonstrated two ventral hernias. The superior epigastric contains st omach with no evidence of obstruction. The inferior incisional hernia contains a small loop of bowel likely causing partial bowel obstruction. Review of Systems - Review of Systems All systems: reviewed and no additional remarkable complaints except (as per hpi) Past Patient History - Tetanus Immunizations Tetanus Immunization: Unknown - Past Medical History & Family History Past Medical History?: Yes - Past Social History Alcohol: None Drugs: Denies - CARDIAC Hx Hypertension: Yes - PULMONARY Hx Chronic Obstructive Pulmonary Disease (COPD): Yes - NEUROLOGICAL Hx Neurological Disorder: No - HEENT Hx HEENT Problems: No - RENAL Hx Chronic Kidney Disease: No - ENDOCRINE/METABOLIC Hx Endocrine Disorders: Yes - HEMATOLOGICAL/ONCOLOGICAL Hx Blood Disorders: No - INTEGUMENTARY Hx Dermatological Problems: No - MUSCULOSKELETAL/RHEUMATOLOGICAL Hx Musculoskeletal Disorders: No Hx Falls: No - GASTROINTESTINAL Hx Gastrointestinal Disorders: No - GENITOURINARY/GYNECOLOGICAL Hx Genitourinary Disorders: No - PSYCHIATRIC Hx Psychophysiologic Disorder: No Hx Substance Use: No - SURGICAL HISTORY Hx Appendectomy: Yes Hx Cholecystectomy: Yes Hx Coronary Artery Bypass Graft: Yes (x4) - ANESTHESIA Hx Anesthesia: Yes Hx Anesthesia Reactions: No Meds Allergies/Adverse Reactions: Allergies Allergy/AdvReac Type Severity Reaction Status Date / Time ciprofloxacin [From Cipro] Allergy RASH Verified 10/01/18 14:19 ciprofloxacin HCl Allergy RASH Verified 10/01/18 14:19 [From Cipro] - Medications Medications: Current Medications Sodium Chloride (Sodium Chloride 0.9%) 1,000 mls @ 125 mls/hr IV .Q8H STA Stop: 10/02/18 06:25 Physical Exam - Constitutional Appears: Non-toxic, No Acute Distress - Head Exam Head Exam: NORMAL INSPECTION - Eye Exam Eye Exam: Normal appearance - ENT Exam ENT Exam: Mucous Membranes Moist - Respiratory Exam Respiratory Exam: absent: Respiratory Distress - Cardiovascular Exam Cardiovascular Exam: REGULAR RHYTHM. absent: Tachycardia - GI/Abdominal Exam GI & Abdominal Exam: Hernia (epigastric ), Soft, Tenderness (along inferior incision site). absent: Distended, Firm, Mass, Rebound, Rigid Additional comments: incisional hernia - reduced at bedside - Rectal Exam Rectal Exam: absent: Deferred - Extremities Exam Extremities exam: Negative for: pedal edema - Neurological Exam Neurological exam: Alert, Oriented x3 - Psychiatric Exam Psychiatric exam: Normal Affect, Normal Mood - Skin Skin Exam: Normal Color Results - Vital Signs Recent Vital Signs: Last Vital Signs Temp 98.6 F 10/01/18 14:21 Pulse 78 10/01/18 18:30 Resp 17 10/01/18 18:30 BP 150/88 10/01/18 18:30 Pulse Ox 94 L 10/01/18 21:58 - Labs Result Diagrams: 10/01/18 15:13 10/01/18 15:13 Labs: Laboratory Results - last 24 hr 10/01/18 10/01/18 10/01/18 15:13 15:13 19:18 WBC 10.8 RBC 4.11 Hgb 11.5 L Hct 34.7 MCV 84.4 MCH 27.9 MCHC 33.0 RDW 18.5 H Plt Count 344 MPV 8.3 Neut % (Auto) 74.1 Lymph % (Auto) 16.0 L [place] % (Auto) 7.3 Eos % (Auto) 2.0 Baso % (Auto) 0.6 Neut # (Auto) 8.0 H Lymph # (Auto) 1.7 [place] # (Auto) 0.8 Eos # (Auto) 0.2 Baso # (Auto) 0.1 Sodium 136 Potassium 4.8 Chloride 101 Carbon Dioxide 25 Anion Gap 15 BUN 20 H Creatinine 0.7 Est GFR ( Amer) > 60 Est GFR (Non-Af Amer) > 60 Random Glucose 358 H Calcium 9.2 Total Bilirubin 0.6 AST 29 ALT 26 Alkaline Phosphatase 134 H D Total Protein 7.6 Albumin 3.8 Globulin 3.8 Albumin/Globulin Ratio 1.0 Urine Color Yellow Urine Clarity Clear Urine pH 6.0 Ur Specific [place] 1.047 H Urine Protein Negative Urine Glucose (UA) 50 Urine Ketones Negative Urine Blood Negative Urine Nitrate Negative Urine Bilirubin Negative Urine Urobilinogen 0.2-1.0 Ur Leukocyte Esterase Neg Urine RBC (Auto) 2 Urine Microscopic WBC 2 Ur Squamous Epith Cells 3 Assessment & Plan - Assessment and Plan (Free Text) Assessment: 78F with pSBO likely secondary to reducible incisional hernia Plan: Hernia reduced at bedside no immediate surgical intervention planned from surgical perspective pt can be discharged with outpatient follow up with Dr Hall if pt is admitted we will continue to follow and re-evaluate in AM ok to trial diet further mgmt per medical team d/w Dr Chichi Kimble, PGY4 <Riaz Cadet - Last Filed: 10/02/18 10:33> History of Present Illness - History of Present Illness History of Present Illness: Patient was seen and examined at the bedside. Agree with resident's note above. Meds - Medications Medications: Current Medications Acetaminophen (Tylenol 325mg Tab) 650 mg PO Q6 PRN PRN Reason: Pain, Mild (1-3) Alprazolam (Xanax) 0.25 mg PO Q12 PRN PRN Reason: Anxiety Stop: 10/08/18 23:53 Last Admin: 10/02/18 02:18 Dose: 0.25 mg Atorvastatin Calcium (Lipitor) 20 mg PO HS JAN Clopidogrel Bisulfate (Plavix) 75 mg PO DAILY JAN Dextrose (Dextrose 50% Inj) 0 ml IV STAT PRN; Protocol PRN Reason: Hypoglycemia Protocol Dextrose (Glutose 15) 0 gm PO ONCE PRN; Protocol PRN Reason: Hypoglycemia Protocol Docusate Sodium (Colace) 100 mg PO DAILY PRN PRN Reason: Constipation Glucagon (Glucagen Diagnostic Kit) 0 mg IM STAT PRN; Protocol PRN Reason: Hypoglycemia Protocol Hydrochlorothiazide (Hydrodiuril) 25 mg PO DAILY [facility] Insulin Human Lispro (Humalog) 0 units SC ACCU-CHECK JAN; Protocol Ketorolac Tromethamine (Toradol) 15 mg IVP Q6 PRN PRN Reason: Pain, moderate (4-7) Last Admin: 10/02/18 03:24 Dose: 15 mg Ketorolac Tromethamine (Toradol) 30 mg IVP Q6 PRN PRN Reason: Pain, severe (8-10) Losartan Potassium (Cozaar) 100 mg PO DAILY [facility] Metformin HCl (Glucophage) 1,000 mg PO BID [facility] Ondansetron HCl (Zofran Inj) 4 mg IVP Q6 PRN PRN Reason: Nausea/Vomiting Pantoprazole Sodium (Protonix Ec Tab) 40 mg PO DAILY [facility] Physical Exam - GI/Abdominal Exam Additional comments: soft, NT, ND, BS+, no rebound, no guarding, well healed scars from prior surgeries, incisional hernia to the left of umbilicus Results - Vital Signs Recent Vital Signs: Last Vital Signs Temp 97.8 F 10/02/18 08:00 Pulse 66 10/02/18 08:00 Resp 19 10/02/18 08:34 BP 151/62 H 10/02/18 08:00 Pulse Ox 90 L 10/02/18 08:00 - Labs Result Diagrams: 10/02/18 05:45 10/02/18 05:45 Labs: Laboratory Results - last 24 hr 10/01/18 10/01/18 10/01/18 15:13 15:13 19:18 WBC 10.8 RBC 4.11 Hgb 11.5 L Hct 34.7 MCV 84.4 MCH 27.9 MCHC 33.0 RDW 18.5 H Plt Count 344 MPV 8.3 Neut % (Auto) 74.1 Lymph % (Auto) 16.0 L [place] % (Auto) 7.3 Eos % (Auto) 2.0 Baso % (Auto) 0.6 Neut # (Auto) 8.0 H Lymph # (Auto) 1.7 [place] # (Auto) 0.8 Eos # (Auto) 0.2 Baso # (Auto) 0.1 Sodium 136 Potassium 4.8 Chloride 101 Carbon Dioxide 25 Anion Gap 15 BUN 20 H Creatinine 0.7 Est GFR ( Amer) > 60 Est GFR (Non-Af Amer) > 60 POC Glucose (mg/dL) Random Glucose 358 H Calcium 9.2 Total Bilirubin 0.6 AST 29 ALT 26 Alkaline Phosphatase 134 H D Total Protein 7.6 Albumin 3.8 Globulin 3.8 Albumin/Globulin Ratio 1.0 Urine Color Yellow Urine Clarity Clear Urine pH 6.0 Ur Specific [place] 1.047 H Urine Protein Negative Urine Glucose (UA) 50 Urine Ketones Negative Urine Blood Negative Urine Nitrate Negative Urine Bilirubin Negative Urine Urobilinogen 0.2-1.0 Ur Leukocyte Esterase Neg Urine RBC (Auto) 2 Urine Microscopic WBC 2 Ur Squamous Epith Cells 3 10/02/18 10/02/18 10/02/18 02:32 05:45 05:45 WBC 9.9 RBC 4.11 Hgb 11.1 L Hct 35.0 MCV 85.1 MCH 27.1 MCHC 31.9 L RDW 18.4 H Plt Count 361 MPV Neut % (Auto) Lymph % (Auto) [place] % (Auto) Eos % (Auto) Baso % (Auto) Neut # (Auto) Lymph # (Auto) [place] # (Auto) Eos # (Auto) Baso # (Auto) Sodium 138 Potassium 4.3 Chloride 101 Carbon Dioxide 27 Anion Gap 14 BUN 21 H Creatinine 0.9 Est GFR ( Amer) > 60 Est GFR (Non-Af Amer) > 60 POC Glucose (mg/dL) 190 H Random Glucose 166 H Calcium 8.7 Total Bilirubin AST ALT Alkaline Phosphatase Total Protein Albumin Globulin Albumin/Globulin Ratio Urine Color Urine Clarity Urine pH Ur Specific [place] Urine Protein Urine Glucose (UA) Urine Ketones Urine Blood Urine Nitrate Urine Bilirubin Urine Urobilinogen Ur Leukocyte Esterase Urine RBC (Auto) Urine Microscopic WBC Ur Squamous Epith Cells - Imaging and Cardiology CT scan - abdomen Status: Image reviewed by me, Report reviewed by me Assessment & Plan - Assessment and Plan (Free Text) Plan: - Clear liquid diet - Advance diet as tolerated - No general surgery intervention at present time - If tolerates diet patient is clear for discharge from general surgery stand point
--- NOTE | 2018-10-01 23:20 | CP.PCM.HP ---
<Avery Hernandez - Last Filed: 10/02/18 00:37> History of Present Illness - History of Present Illness History of Present Illness: 78 y/o F with PMHx of CAD /p quad CABG, HTN, HLD, IDDM 2, OA, asthma, anemia, hypothyroidism and multiple abdominal surgeries presents to ED with new onset of abdominal pain. Abdominal pain started earlier this morning, 10/10, throbbing, right lower quadrent and midline in epigastric area. Pain has been accompanied by nausea, back pain but patient denies vomiting. Appetite is decreased since this morning. Last BM yesterday which was normal and passing f latus. Patient does take colace BID for constipation. Denies any vomiting, diarrhea, fever, chills, CP, SOB, urinary symptoms. Patient reports having multiple abdominal surgeries including but not limited to hernia repair, ex-lap for SBO and cholecystectomy. PMD: [facility] Dermatopathologist: Dr. Lopez PMH: Moderate Persistent asthma, hypothyroidism, CAD s/p CABG, HTN, IDDM2, HLD, OA PSH: Quad CABG, Ex-lap for hernia repair, cholecystectomy, Abdominal wall hernia ALL: Ciprofloxacin Social: hx of /3 PPD >20 years, quit 5 months ago. Denies ETOH/Drug abuse F/H: DM, HTN, CAD ED Course Vitals: T: 98.6, HR 78, BP 187/63, RR 18, SPO2 94% on RA PE: Midline ventral wall hernia and tenderness, Hernia reduced by Surgery resident in ER. Labs: CBC 10.8> 11.5/34.7 <344, CMP BUN 20, Gluc 358, ALP 134, UA unremarkable. Imaging: CT in ED demonstrated two ventral hernias. The superior epigastric contains stomach with no evidence of obstruction. The inferior incisional hernia contains a small loop of bowel likely causing partial bowel obstruction Patient evaluated by Surgery in ED with reduction of incisional hernia. Meds: Pepcid 20 mg, Morphine 2 mg IV, Toradol 15 mg IVP, NS 1L Bolus in ED. Present on Admission - Present on Admission Any Indicators Present on Admission: Yes History of DVT/PE: No History of Uncontrolled Diabetes: Yes Urinary Catheter: No Decubitus Ulcer Present: No Review of Systems - Constitutional Constitutional: absent: Fever - EENT Eyes: absent: Change in Vision Ears: absent: Dizziness - Cardiovascular Cardiovascular: Leg Edema. absent: Chest Pain, Chest Pain at Rest, Dyspnea, Dyspnea on Exertion - Respiratory Respiratory: absent: Cough, Dyspnea, Dyspnea on Exertion - Gastrointestinal Gastrointestinal: Abdominal Pain, Constipation, Nausea. absent: Change in Bowel Habits, Diarrhea, Hematemesis, Hematochezia, Melena, Vomiting - Genitourinary Genitourinary: absent: Change in Urinary Stream, Dysuria, Flank Pain - Musculoskeletal Musculoskeletal: Back Pain Past Patient History - Tetanus Immunizations Tetanus Immunization: Unknown - Past Medical History & Family History Past Medical History?: Yes - Past Social History Smoking Status: Former Smoker Alcohol: None Drugs: Denies - CARDIAC Hx Cardiac Disorders: Yes Hx Cardia Arrhythmia: Yes Hx Heart Attack: Yes Hx Hypertension: Yes - PULMONARY Hx Chronic Obstructive Pulmonary Disease (COPD): Yes - NEUROLOGICAL Hx Neurological Disorder: No - HEENT Hx HEENT Problems: No - RENAL Hx Chronic Kidney Disease: No - ENDOCRINE/METABOLIC Hx Endocrine Disorders: Yes - HEMATOLOGICAL/ONCOLOGICAL Hx Blood Disorders: No - INTEGUMENTARY Hx Dermatological Problems: No - MUSCULOSKELETAL/RHEUMATOLOGICAL Hx Musculoskeletal Disorders: No Hx Falls: No - GASTROINTESTINAL Hx Gastrointestinal Disorders: No - GENITOURINARY/GYNECOLOGICAL Hx Genitourinary Disorders: No - PSYCHIATRIC Hx Psychophysiologic Disorder: No Hx Substance Use: No - SURGICAL HISTORY Hx Appendectomy: Yes Hx Cholecystectomy: Yes Hx Coronary Artery Bypass Graft: Yes (x4) - ANESTHESIA Hx Anesthesia: Yes Hx Anesthesia Reactions: No Meds Home Medications: Home Medication List Medication Instructions Recorded Confirmed Type Levothyroxine [Synthroid] 88 mcg PO DAILY #0 10/01/18 Rx Allergies/Adverse Reactions: Allergies Allergy/AdvReac Type Severity Reaction Status Date / Time ciprofloxacin [From Cipro] Allergy RASH Verified 10/01/18 14:19 ciprofloxacin HCl Allergy RASH Verified 10/01/18 14:19 [From Cipro] Physical Exam - Constitutional Appears: No Acute Distress - Head Exam Head Exam: ATRAUMATIC, NORMAL INSPECTION, NORMOCEPHALIC - Eye Exam Eye Exam: EOMI, Normal appearance Pupil Exam: NORMAL ACCOMODATION, PERRL - ENT Exam ENT Exam: Mucous Membranes Moist, Normal Exam - Neck Exam Neck exam: Positive for: Normal Inspection - Respiratory Exam Respiratory Exam: Clear to Auscultation Bilateral, NORMAL BREATHING PATTERN. absent: Chest Wall Tenderness, Wheezes, Respiratory Distress - Cardiovascular Exam Cardiovascular Exam: REGULAR RHYTHM, +S1, +S2. absent: JVD Additional comments: Distant heart sounds - GI/Abdominal Exam GI & Abdominal Exam: Hypoactive Bowel Sounds, Soft, Tenderness. absent: Firm Additional comments: Multiple scars from previous surgeries including midline, RUQ area. Ventral wall hernia in epigastric region with mild tenderness, + tenderness in midline incisional hernia. + RLQ tenderness, Negative Rovsing, rebound, guarding or rigidity. - Rectal Exam Rectal Exam: absent: Black Stool, Bloody Stool - Extremities Exam Extremities exam: Positive for: pedal edema. Negative for: calf tenderness Additional comments: +1 B/L pitting edema with overlaying skin changes - Back Exam Back exam: absent: CVA tenderness (L), CVA tenderness (R) - Neurological Exam Neurological exam: Alert, CN II-XII Intact, Oriented x3 - Psychiatric Exam Psychiatric exam: Normal Affect, Normal Mood - Skin Skin Exam: Dry, Intact, Normal Color, Warm Results - Vital Signs Recent Vital Signs: Last Vital Signs Temp 98.4 F 10/01/18 23:08 Pulse 65 10/01/18 23:08 Resp 16 10/01/18 23:08 BP 176/72 H 10/01/18 23:08 Pulse Ox 96 10/01/18 23:08 - Labs Result Diagrams: 10/01/18 15:13 10/01/18 15:13 Labs: Laboratory Results - last 24 hr 10/01/18 10/01/18 10/01/18 15:13 15:13 19:18 WBC 10.8 RBC 4.11 Hgb 11.5 L Hct 34.7 MCV 84.4 MCH 27.9 MCHC 33.0 RDW 18.5 H Plt Count 344 MPV 8.3 Neut % (Auto) 74.1 Lymph % (Auto) 16.0 L [place] % (Auto) 7.3 Eos % (Auto) 2.0 Baso % (Auto) 0.6 Neut # (Auto) 8.0 H Lymph # (Auto) 1.7 [place] # (Auto) 0.8 Eos # (Auto) 0.2 Baso # (Auto) 0.1 Sodium 136 Potassium 4.8 Chloride 101 Carbon Dioxide 25 Anion Gap 15 BUN 20 H Creatinine 0.7 Est GFR ( Amer) > 60 Est GFR (Non-Af Amer) > 60 Random Glucose 358 H Calcium 9.2 Total Bilirubin 0.6 AST 29 ALT 26 Alkaline Phosphatase 134 H D Total Protein 7.6 Albumin 3.8 Globulin 3.8 Albumin/Globulin Ratio 1.0 Urine Color Yellow Urine Clarity Clear Urine pH 6.0 Ur Specific [place] 1.047 H Urine Protein Negative Urine Glucose (UA) 50 Urine Ketones Negative Urine Blood Negative Urine Nitrate Negative Urine Bilirubin Negative Urine Urobilinogen 0.2-1.0 Ur Leukocyte Esterase Neg Urine RBC (Auto) 2 Urine Microscopic WBC 2 Ur Squamous Epith Cells 3 Assessment & Plan - Assessment and Plan (Free Text) Assessment: 78 y/o F with PMHx of CAD /p quad CABG, HTN, HLD, IDDM 2, OA, asthma, anemia, hypothyroidism and multiple abdominal surgeries admitted for acute abdominal pain x 1 day. Patient diagnosed with ventral wall hernia which was reduced in ED. CT scan consistent with incisional hernia. Plan: Acute abdominal pain 2/2 hernia - Likely secondary to midline incisional hernia with possible SBO. - CT abdomen: CT in ED demonstrated two ventral hernias. The superior epigastric contains stomach with no evidence of obstruction. The inferior incisional hernia contains a small loop of bowel likely causing partial bowel obstruction - S/P Hernia reduction in ED - S/P NS 1L bolus, Pepcid, Morphine and Toradol in ED - Continue NS @ 125 ml/hr - Advance diet to clear liquid - Surgery consulted: No surgical intervention at this point, reevaluate in AM, likely DC with outpatient F/U with Dr. Hall, Recs appreciated - Toradol 15 Q6hr PRN for pain - Zofran 4 mg Q6 PRN for nausea - F/U XR obstructive series in AM IDDM-2 - Uncontrolled - Hold Metformin 1000 mg BID - Insulin Lispro sliding scale - Hypoglycemia protocol - Monitor glucose ACHS HTN - Resume home meds - Valsartan HCT 160-25 mg - Monitor vitals Constipation - Colace 100 mg PO daily Hypothyroidism - Resume synthroid 88 mcg CAD with H/O CABG - Resume Plavix 75 mg daily HLD - Resume Lipitor 20 mg PO daily Anxiety - Xanax 0.25 mg Q12H PRN DVT prophylaxis - SCDs GI prophylaxis - Pantoprazole 40 mg PO daily Diet - Advanced to clear liquid, advance as tolerated. <Tera Herman - Last Filed: 10/02/18 09:53> Results - Vital Signs Recent Vital Signs: Last Vital Signs Temp 97.8 F 10/02/18 08:00 Pulse 66 10/02/18 08:00 Resp 19 10/02/18 08:06 BP 151/62 H 10/02/18 08:00 Pulse Ox 90 L 10/02/18 08:00 - Labs Result Diagrams: 10/02/18 05:45 10/02/18 05:45 Labs: Laboratory Results - last 24 hr 10/01/18 10/01/18 10/01/18 15:13 15:13 19:18 WBC 10.8 RBC 4.11 Hgb 11.5 L Hct 34.7 MCV 84.4 MCH 27.9 MCHC 33.0 RDW 18.5 H Plt Count 344 MPV 8.3 Neut % (Auto) 74.1 Lymph % (Auto) 16.0 L [place] % (Auto) 7.3 Eos % (Auto) 2.0 Baso % (Auto) 0.6 Neut # (Auto) 8.0 H Lymph # (Auto) 1.7 [place] # (Auto) 0.8 Eos # (Auto) 0.2 Baso # (Auto) 0.1 Sodium 136 Potassium 4.8 Chloride 101 Carbon Dioxide 25 Anion Gap 15 BUN 20 H Creatinine 0.7 Est GFR ( Amer) > 60 Est GFR (Non-Af Amer) > 60 POC Glucose (mg/dL) Random Glucose 358 H Calcium 9.2 Total Bilirubin 0.6 AST 29 ALT 26 Alkaline Phosphatase 134 H D Total Protein 7.6 Albumin 3.8 Globulin 3.8 Albumin/Globulin Ratio 1.0 Urine Color Yellow Urine Clarity Clear Urine pH 6.0 Ur Specific [place] 1.047 H Urine Protein Negative Urine Glucose (UA) 50 Urine Ketones Negative Urine Blood Negative Urine Nitrate Negative Urine Bilirubin Negative Urine Urobilinogen 0.2-1.0 Ur Leukocyte Esterase Neg Urine RBC (Auto) 2 Urine Microscopic WBC 2 Ur Squamous Epith Cells 3 10/02/18 10/02/18 10/02/18 02:32 05:45 05:45 WBC 9.9 RBC 4.11 Hgb 11.1 L Hct 35.0 MCV 85.1 MCH 27.1 MCHC 31.9 L RDW 18.4 H Plt Count 361 MPV Neut % (Auto) Lymph % (Auto) [place] % (Auto) Eos % (Auto) Baso % (Auto) Neut # (Auto) Lymph # (Auto) [place] # (Auto) Eos # (Auto) Baso # (Auto) Sodium 138 Potassium 4.3 Chloride 101 Carbon Dioxide 27 Anion Gap 14 BUN 21 H Creatinine 0.9 Est GFR ( Amer) > 60 Est GFR (Non-Af Amer) > 60 POC Glucose (mg/dL) 190 H Random Glucose 166 H Calcium 8.7 Total Bilirubin AST ALT Alkaline Phosphatase Total Protein Albumin Globulin Albumin/Globulin Ratio Urine Color Urine Clarity Urine pH Ur Specific [place] Urine Protein Urine Glucose (UA) Urine Ketones Urine Blood Urine Nitrate Urine Bilirubin Urine Urobilinogen Ur Leukocyte Esterase Urine RBC (Auto) Urine Microscopic WBC Ur Squamous Epith Cells Attending/Attestation - Attestation I have personally seen and examined this patient.: Yes I have fully participated in the care of the patient.: Yes I have reviewed all pertinent clinical information: Yes Notes (Text): I saw, examined and discussed this patient with Dr Hernandez. I agree with the assessment and plan outlined. This is a 78 years old female who comes with 2 days of abdominal pain. Likely secondary to midline incisional hernia with possible SBO. - CT abdomen: CT in ED demonstrated two ventral hernias. The superior epigastric contains stomach with no evidence of obstruction. The inferior incisional hernia contains a small loop of bowel likely causing partial bowel obstruction Surgery was consulted and the Inferior incisional hernia with the small loop of bowel causing the partial bowel obstruction was reduced. The patient will be kept for observation with pain management and repeated Obstructive series. If stable she will be discharged to follow up with the surgeon at a later date. Teat Dehydration and Diabeted Mellitus with hyperglycemia. Tera Herman MD
[2018-10-01] MEDS ORDERED: Glucagon Recombinant 1 mg Inj IM PRN (23:43)
[2018-10-01] MEDS ORDERED: Dextrose 50% SYRINGE Inj (50 ml) IV PRN (23:43)
[2018-10-02 06:41] LABS: HEMOGLOBIN 11.1 g/dL (12.0-16.0); MEAN CELL VOLUME 85.1 fl (81.0-99.0); MEAN CORPUSCULAR HEMOGLOBIN 27.1 pg (27.0-31.0); MEAN CORPUSCULAR HGB CONC 31.9 g/dL (33.0-37.0); RBC 4.11 Mil/uL (3.80-5.20); RED CELL DISTRIBUTION WIDTH 18.4 % (11.5-14.5); WHITE BLOOD COUNT 9.9 K/uL (4.8-10.8)
[2018-10-02 06:47] LABS: BLOOD UREA NITROGEN 21 mg/dl (7-17); CALCIUM 8.7 mg/dL (8.4-10.2); GFR NON-AFRICAN AMERICAN > 60
[2018-10-02] MEDS ORDERED: Pantoprazole 40 mg EC Tab PO SCH (09:00)
--- NOTE | 2018-10-02 09:12 | CP.PCM.PN ---
<Mallory Bustamante - Last Filed: 10/02/18 10:09> Subjective - Date & Time of Evaluation Date of Evaluation: 10/02/18 Time of Evaluation: 09:10 - Subjective Subjective: General Surgery Pt seen and examined this AM with Dr. Cadet. She denies having abdominal pain at this time. (-) N/V. She reports passing gas and having a BM this AM. She recently returned from radiology and hasn't had her clear liquid breakfast yet. Labs and vitals noted. Obstructive Series today with (+) contrast in the colon PE Gen: Pt laying in bed in NAD Skin: warm and dry Resp: (-) tachypnea Abd: Soft, NTND, (-) incarcerated hernia. Well healed surgical scars. A/P Incarcerated incisional hernia that was reduced in the ED last night. Clear liquids now, advance as tolerated to solids. Pt cleared for discharge from surgical perspective. Monitor diet tolerance. Pt to follow up as an outpt for elective surgical repair. Objective - Vital Signs/Intake and Output Vital Signs (last 24 hours): Temp Pulse Resp BP Pulse Ox 97.8 F 66 19 151/62 H 90 L 10/02/18 08:00 10/02/18 08:00 10/02/18 08:06 10/02/18 08:00 10/02/18 08:00 - Medications Medications: Current Medications Acetaminophen (Tylenol 325mg Tab) 650 mg PO Q6 PRN PRN Reason: Pain, Mild (1-3) Alprazolam (Xanax) 0.25 mg PO Q12 PRN PRN Reason: Anxiety Stop: 10/08/18 23:53 Last Admin: 10/02/18 02:18 Dose: 0.25 mg Atorvastatin Calcium (Lipitor) 20 mg PO HS JAN Clopidogrel Bisulfate (Plavix) 75 mg PO DAILY JAN Dextrose (Dextrose 50% Inj) 0 ml IV STAT PRN; Protocol PRN Reason: Hypoglycemia Protocol Dextrose (Glutose 15) 0 gm PO ONCE PRN; Protocol PRN Reason: Hypoglycemia Protocol Docusate Sodium (Colace) 100 mg PO DAILY PRN PRN Reason: Constipation Glucagon (Glucagen Diagnostic Kit) 0 mg IM STAT PRN; Protocol PRN Reason: Hypoglycemia Protocol Hydrochlorothiazide (Hydrodiuril) 25 mg PO DAILY [facility] Insulin Human Lispro (Humalog) 0 units SC ACCU-CHECK JAN; Protocol Ketorolac Tromethamine (Toradol) 15 mg IVP Q6 PRN PRN Reason: Pain, moderate (4-7) Last Admin: 10/02/18 03:24 Dose: 15 mg Ketorolac Tromethamine (Toradol) 30 mg IVP Q6 PRN PRN Reason: Pain, severe (8-10) Losartan Potassium (Cozaar) 100 mg PO DAILY [facility] Metformin HCl (Glucophage) 1,000 mg PO BID [facility] Ondansetron HCl (Zofran Inj) 4 mg IVP Q6 PRN PRN Reason: Nausea/Vomiting Pantoprazole Sodium (Protonix Ec Tab) 40 mg PO DAILY [facility] - Labs Labs: 10/02/18 05:45 10/02/18 05:45 <Riaz Cadet - Last Filed: 10/02/18 10:23> Subjective - Date & Time of Evaluation Time of Evaluation: 09:45 - Subjective Subjective: Patient was seen and examined at the bedside. Agree with note above. Objective - Vital Signs/Intake and Output Vital Signs (last 24 hours): Temp Pulse Resp BP Pulse Ox 97.8 F 66 19 151/62 H 90 L 10/02/18 08:00 10/02/18 08:00 10/02/18 08:34 10/02/18 08:00 10/02/18 08:00 - Medications Medications: Current Medications Acetaminophen (Tylenol 325mg Tab) 650 mg PO Q6 PRN PRN Reason: Pain, Mild (1-3) Alprazolam (Xanax) 0.25 mg PO Q12 PRN PRN Reason: Anxiety Stop: 10/08/18 23:53 Last Admin: 10/02/18 02:18 Dose: 0.25 mg Atorvastatin Calcium (Lipitor) 20 mg PO HS [facility] Clopidogrel Bisulfate (Plavix) 75 mg PO DAILY [facility] Dextrose (Dextrose 50% Inj) 0 ml IV STAT PRN; Protocol PRN Reason: Hypoglycemia Protocol Dextrose (Glutose 15) 0 gm PO ONCE PRN; Protocol PRN Reason: Hypoglycemia Protocol Docusate Sodium (Colace) 100 mg PO DAILY PRN PRN Reason: Constipation Glucagon (Glucagen Diagnostic Kit) 0 mg IM STAT PRN; Protocol PRN Reason: Hypoglycemia Protocol Hydrochlorothiazide (Hydrodiuril) 25 mg PO DAILY [facility] Insulin Human Lispro (Humalog) 0 units SC ACCU-CHECK JAN; Protocol Ketorolac Tromethamine (Toradol) 15 mg IVP Q6 PRN PRN Reason: Pain, moderate (4-7) Last Admin: 10/02/18 03:24 Dose: 15 mg Ketorolac Tromethamine (Toradol) 30 mg IVP Q6 PRN PRN Reason: Pain, severe (8-10) Losartan Potassium (Cozaar) 100 mg PO DAILY [facility] Metformin HCl (Glucophage) 1,000 mg PO BID [facility] Ondansetron HCl (Zofran Inj) 4 mg IVP Q6 PRN PRN Reason: Nausea/Vomiting Pantoprazole Sodium (Protonix Ec Tab) 40 mg PO DAILY [facility] - Labs Labs: 10/02/18 05:45 10/02/18 05:45
--- NOTE | 2018-10-02 09:35 | CT ---
Date of service: 10/01/2018 PROCEDURE: CT Abdomen and Pelvis with contrast HISTORY: abd pain COMPARISON: 10/13/2017 TECHNIQUE: Contrast dose: 95 mL Omnipaque 300 Radiation dose: Total exam DLP = 821.68 mGy-cm. This CT exam was performed using one or more of the following dose reduction techniques: Automated exposure control, adjustment of the mA and/or kV according to patient size, and/or use of iterative reconstruction technique. FINDINGS: LOWER THORAX: Unremarkable. LIVER: Mild hepatomegaly. Normal contour. No mass. No biliary dilatation. Status post cholecystectomy. GALLBLADDER AND BILE DUCTS: Cholecystectomy. 12 mm common bile duct diameter consistent with patient age and prior cholecystectomy. No associated intrahepatic biliary dilatation. PANCREAS: Unremarkable. No gross lesion or ductal dilatation. SPLEEN: Unremarkable. ADRENALS: Unremarkable. No mass. KIDNEYS AND URETERS: Left upper pole cortical cyst, 1.3 cm. No other renal mass. Several very small nonobstructing renal calculi, largest upper pole right kidney, 6 mm. 3 mm calculus mid right kidney. No left renal calculus. No hydronephrosis. VASCULATURE: Unremarkable. No aortic aneurysm. There is atherosclerotic calcification of the abdominal aorta. BOWEL: There is evidence of prior surgery with enteral anastomoses in the mid lower abdomen. There is ventral abdominal mesh. There is a high midline ventral hernia containing portion of the gastric antrum, only a single wall. There is a right parasagittal lower ventral hernia containing a nonobstructed loop of small bowel. This is unchanged from prior CT examination. There is a small ventral hernia in the right central abdomen containing only a small amount of mesenteric fat. This is unchanged. No evidence of bowel obstruction. APPENDIX: Not identified. PERITONEUM: No ascites. As above. LYMPH NODES: Unremarkable. No enlarged lymph nodes. BLADDER: Unremarkable. REPRODUCTIVE: Normal postmenopausal uterus BONES: No acute fracture. Grade 1 anterolisthesis L4-5 without spondylolysis. Multilevel degenerative disc disease. OTHER FINDINGS: None. IMPRESSION: No bowel obstruction. Ventral hernia containing 1 wall of the gastric antrum. Ventral hernia containing a loop of nonobstructed small bowel. Ventral hernia containing small amount of mesenteric fat only. Status post enteral anastomosis. Ventral mesh material noted. The preliminary findings for this examination were reported by [facility] Radiology at 8:17 p.m. on 10/01/2018. There is concurrence of this report with the preliminary findings.
--- NOTE | 2018-10-02 09:44 | RAD ---
Date of service: 10/02/2018 PROCEDURE: Radiographs of the chest and abdomen (obstructive series) HISTORY: Partial SBO, Ventral hernia, Multiple abd surg COMPARISON: No prior. TECHNIQUE: AP radiograph of the chest, with upright and supine radiographs of the abdomen. FINDINGS: CHEST: Lungs: Clear. Cardiovascular: Normal size heart. No pulmonary vascular congestion. Sternotomy wires. No aortic atherosclerotic calcification present Pleura: No pleural fluid. No pneumothorax. Other findings: None. ABDOMEN AND PELVIS: Bowel: Unremarkable bowel gas pattern. No evidence of mechanical obstruction. Free air: None. Bones: Unremarkable. Other findings: None. IMPRESSION: Unremarkable radiographs of chest and abdomen. No evidence of mechanical bowel obstruction.
[2018-10-02] MEDS: Insulin Lispro (humaLOG) 100 Units/ml Inj SC SCH ×2 (11:35→12:49)
--- NOTE | 2018-10-02 14:37 | CP.PCM.DIS ---
<Palmira Alcantara - Last Filed: 10/02/18 14:59> Provider - Provider Date of Admission: 10/01/18 22:26 Attending physician: Tera Herman Consults: 10/01/18 21:52 Surgery [General Surgery Consult] Stat Comment: Consulting Provider: Riaz Cadet Consulting Physician: Riaz Cadet Reason for Consult: SBO 10/02/18 09:56 Pastoral Care Referral Routine Comment: Physician Instructions: Reason For Exam: islam Time Spent in preparation of Discharge (in minutes): 37 Diagnosis - Discharge Diagnosis (1) Partial small bowel obstruction Status: Resolved (2) Abdominal pain Status: Acute (3) Abdominal wall hernia Status: Acute (4) Diabetes mellitus Status: Chronic (5) Hypertension Status: Chronic Hospital Course - Lab Results Lab Results: Most Recent Lab Values WBC 9.9 K/uL (4.8-10.8) 10/02/18 05:45 RBC 4.11 Mil/uL (3.80-5.20) 10/02/18 05:45 Hgb 11.1 g/dL (12.0-16.0) L 10/02/18 05:45 Hct 35.0 % (34.0-47.0) 10/02/18 05:45 MCV 85.1 fl (81.0-99.0) 10/02/18 05:45 MCH 27.1 pg (27.0-31.0) 10/02/18 05:45 MCHC 31.9 g/dL (33.0-37.0) L 10/02/18 05:45 RDW 18.4 % (11.5-14.5) H 10/02/18 05:45 Plt Count 361 K/uL (130-400) 10/02/18 05:45 MPV 8.3 fl (7.2-11.7) 10/01/18 15:13 Neut % (Auto) 74.1 % (50.0-75.0) 10/01/18 15:13 Lymph % (Auto) 16.0 % (20.0-40.0) L 10/01/18 15:13 [place] % (Auto) 7.3 % (0.0-10.0) 10/01/18 15:13 Eos % (Auto) 2.0 % (0.0-4.0) 10/01/18 15:13 Baso % (Auto) 0.6 % (0.0-2.0) 10/01/18 15:13 Neut # (Auto) 8.0 K/uL (1.8-7.0) H 10/01/18 15:13 Lymph # (Auto) 1.7 K/uL (1.0-4.3) 10/01/18 15:13 [place] # (Auto) 0.8 K/uL (0.0-0.8) 10/01/18 15:13 Eos # (Auto) 0.2 K/uL (0.0-0.7) 10/01/18 15:13 Baso # (Auto) 0.1 K/uL (0.0-0.2) 10/01/18 15:13 Sodium 138 mmol/l (132-148) 10/02/18 05:45 Potassium 4.3 MMOL/L (3.6-5.0) 10/02/18 05:45 Chloride 101 mmol/L (98-107) 10/02/18 05:45 Carbon Dioxide 27 mmol/L (22-30) 10/02/18 05:45 Anion Gap 14 (10-20) 10/02/18 05:45 BUN 21 mg/dl (7-17) H 10/02/18 05:45 Creatinine 0.9 mg/dl (0.7-1.2) 10/02/18 05:45 Est GFR ( Amer) > 60 10/02/18 05:45 Est GFR (Non-Af Amer) > 60 10/02/18 05:45 POC Glucose (mg/dL) 190 mg/dL (65-110) H 10/02/18 02:32 Random Glucose 166 mg/dL (65-105) H 10/02/18 05:45 Calcium 8.7 mg/dL (8.4-10.2) 10/02/18 05:45 Total Bilirubin 0.6 mg/dl (0.2-1.3) 10/01/18 15:13 AST 29 U/L (14-36) 10/01/18 15:13 ALT 26 U/L (9-52) 10/01/18 15:13 Alkaline Phosphatase 134 U/L (38-126) H D 10/01/18 15:13 Total Protein 7.6 G/DL (6.3-8.2) 10/01/18 15:13 Albumin 3.8 g/dL (3.5-5.0) 10/01/18 15:13 Globulin 3.8 gm/dL (2.2-3.9) 10/01/18 15:13 Albumin/Globulin Ratio 1.0 (1.0-2.1) 10/01/18 15:13 Urine Color Yellow (YELLOW) 10/01/18 19:18 Urine Clarity Clear (Clear) 10/01/18 19:18 Urine pH 6.0 (5.0-8.0) 10/01/18 19:18 Ur Specific Osborn 1.047 (1.003-1.030) H 10/01/18 19:18 Urine Protein Negative mg/dL (NEGATIVE) 10/01/18 19:18 Urine Glucose (UA) 50 mg/dL (NEGATIVE) 10/01/18 19:18 Urine Ketones Negative mg/dL (NEGATIVE) 10/01/18 19:18 Urine Blood Negative (NEGATIVE) 10/01/18 19:18 Urine Nitrate Negative (NEGATIVE) 10/01/18 19:18 Urine Bilirubin Negative (NEGATIVE) 10/01/18 19:18 Urine Urobilinogen 0.2-1.0 mg/dL (0.2-1.0) 10/01/18 19:18 Ur Leukocyte Esterase Neg Di/uL (Negative) 10/01/18 19:18 Urine RBC (Auto) 2 /hpf (0-3) 10/01/18 19:18 Urine Microscopic WBC 2 /hpf (0-5) 10/01/18 19:18 Ur Squamous Epith Cells 3 /hpf (0-5) 10/01/18 19:18 - Hospital Course Hospital Course: 78 y/o F with PMHx of CAD /p quad CABG, HTN, HLD, IDDM 2, OA, asthma, anemia, hypothyroidism and multiple abdominal surgeries admitted for evaluation and management of new onset abdominal pain for 1 day, 04/19, throbbing, right lower quadrent and midline in epigastric area. Pain has been accompanied by nausea, back pain but patient denies vomiting. Last BM yesterday which was normal and passing flatus. Patient does take colace BID for constipation. Denies any vomiting, diarrhea, fever, chills, CP, SOB, urinary symptoms. Patient repor ts having multiple abdominal surgeries including but not limited to hernia repair, ex-lap for SBO and cholecystectomy. CT in ED demonstrated two ventral hernias. The superior epigastric contains stomach with no evidence of obstruction. The inferior incisional hernia contains a small loop of bowel likely causing partial bowel obstruction. Patient evaluated by Surgery in ED with reduction of incisional hernia. No surgical intervention at this point, Patient admitted for observation and pain management and IV fluids, patient tolerated diet and denied abd pain at discharge time. Patient stable for discharge with instructions of f/u outpatient with Dr. Hall for elective hernia management. Discharge Exam - Head Exam Head Exam: NORMAL INSPECTION - Respiratory Exam Respiratory Exam: Clear to PA & Lateral, NORMAL BREATHING PATTERN - Cardiovascular Exam Cardiovascular Exam: REGULAR RHYTHM, +S1, +S2 - GI/Abdominal Exam GI & Abdominal Exam: Normal Bowel Sounds, Soft. absent: Distended, Tenderness Additional comments: Multiple scars from previous surgeries including midline, RUQ area. Ventral wall hernia in epigastric region, no tender. - Neurological Exam Neurological exam: Alert, CN II-XII Intact, Oriented x3 - Skin Skin Exam: Dry, Warm Discharge Plan - Follow Up Plan Condition: FAIR Disposition: HOME/ ROUTINE Instructions: Acute Abdomen (Belly Pain), Adult (DC), Abdominal Hernia (DC) Additional Instructions: follow up appt. with in 1 week, Elective Hernia Repair as outpt Pt to ff up with PMD pancho Referrals: Riaz Cadet MD [Staff Provider] - Moncho Lopez MD [Staff Provider] - David Benavides MD [Staff Provider] - <Adeline Thomas - Last Filed: 10/02/18 15:12> Provider - Provider Date of Admission: 10/01/18 22:26 Attending physician: Tera Herman Consults: 10/01/18 21:52 Surgery [General Surgery Consult] Stat Comment: Consulting Provider: Riaz Cadet Consulting Physician: Riaz Cadet Reason for Consult: SBO 10/02/18 09:56 Pastoral Care Referral Routine Comment: Physician Instructions: Reason For Exam: [facility] Course - Lab Results Lab Results: Most Recent Lab Values WBC 9.9 K/uL (4.8-10.8) 10/02/18 05:45 RBC 4.11 Mil/uL (3.80-5.20) 10/02/18 05:45 Hgb 11.1 g/dL (12.0-16.0) L 10/02/18 05:45 Hct 35.0 % (34.0-47.0) 10/02/18 05:45 MCV 85.1 fl (81.0-99.0) 10/02/18 05:45 MCH 27.1 pg (27.0-31.0) 10/02/18 05:45 MCHC 31.9 g/dL (33.0-37.0) L 10/02/18 05:45 RDW 18.4 % (11.5-14.5) H 10/02/18 05:45 Plt Count 361 K/uL (130-400) 10/02/18 05:45 MPV 8.3 fl (7.2-11.7) 10/01/18 15:13 Neut % (Auto) 74.1 % (50.0-75.0) 10/01/18 15:13 Lymph % (Auto) 16.0 % (20.0-40.0) L 10/01/18 15:13 [place] % (Auto) 7.3 % (0.0-10.0) 10/01/18 15:13 Eos % (Auto) 2.0 % (0.0-4.0) 10/01/18 15:13 Baso % (Auto) 0.6 % (0.0-2.0) 10/01/18 15:13 Neut # (Auto) 8.0 K/uL (1.8-7.0) H 10/01/18 15:13 Lymph # (Auto) 1.7 K/uL (1.0-4.3) 10/01/18 15:13 [place] # (Auto) 0.8 K/uL (0.0-0.8) 10/01/18 15:13 Eos # (Auto) 0.2 K/uL (0.0-0.7) 10/01/18 15:13 Baso # (Auto) 0.1 K/uL (0.0-0.2) 10/01/18 15:13 Sodium 138 mmol/l (132-148) 10/02/18 05:45 Potassium 4.3 MMOL/L (3.6-5.0) 10/02/18 05:45 Chloride 101 mmol/L (98-107) 10/02/18 05:45 Carbon Dioxide 27 mmol/L (22-30) 10/02/18 05:45 Anion Gap 14 (10-20) 10/02/18 05:45 BUN 21 mg/dl (7-17) H 10/02/18 05:45 Creatinine 0.9 mg/dl (0.7-1.2) 10/02/18 05:45 Est GFR ( Amer) > 60 10/02/18 05:45 Est GFR (Non-Af Amer) > 60 10/02/18 05:45 POC Glucose (mg/dL) 190 mg/dL (65-110) H 10/02/18 02:32 Random Glucose 166 mg/dL (65-105) H 10/02/18 05:45 Calcium 8.7 mg/dL (8.4-10.2) 10/02/18 05:45 Total Bilirubin 0.6 mg/dl (0.2-1.3) 10/01/18 15:13 AST 29 U/L (14-36) 10/01/18 15:13 ALT 26 U/L (9-52) 10/01/18 15:13 Alkaline Phosphatase 134 U/L (38-126) H D 10/01/18 15:13 Total Protein 7.6 G/DL (6.3-8.2) 10/01/18 15:13 Albumin 3.8 g/dL (3.5-5.0) 10/01/18 15:13 Globulin 3.8 gm/dL (2.2-3.9) 10/01/18 15:13 Albumin/Globulin Ratio 1.0 (1.0-2.1) 10/01/18 15:13 Urine Color Yellow (YELLOW) 10/01/18 19:18 Urine Clarity Clear (Clear) 10/01/18 19:18 Urine pH 6.0 (5.0-8.0) 10/01/18 19:18 Ur Specific Osborn 1.047 (1.003-1.030) H 10/01/18 19:18 Urine Protein Negative mg/dL (NEGATIVE) 10/01/18 19:18 Urine Glucose (UA) 50 mg/dL (NEGATIVE) 10/01/18 19:18 Urine Ketones Negative mg/dL (NEGATIVE) 10/01/18 19:18 Urine Blood Negative (NEGATIVE) 10/01/18 19:18 Urine Nitrate Negative (NEGATIVE) 10/01/18 19:18 Urine Bilirubin Negative (NEGATIVE) 10/01/18 19:18 Urine Urobilinogen 0.2-1.0 mg/dL (0.2-1.0) 10/01/18 19:18 Ur Leukocyte Esterase Neg Di/uL (Negative) 10/01/18 19:18 Urine RBC (Auto) 2 /hpf (0-3) 10/01/18 19:18 Urine Microscopic WBC 2 /hpf (0-5) 10/01/18 19:18 Ur Squamous Epith Cells 3 /hpf (0-5) 10/01/18 19:18 Attending/Attestation - Attestation I have personally seen and examined this patient.: Yes I have fully participated in the care of the patient.: Yes I have reviewed all pertinent clinical information, including history, physical exam and plan: Yes Notes (Text): Diagnoses: Incarcerated Incisional Hernia HT DM Type II on Insulin Hypothyroidism - Hernia was reduced by Surgical team. Pt's abd pain resolved. She had BM x 2 today. Tolerated Soft diet . - Cleared by Surgery for discharge - cont Home meds - Hernia repair will be scheduled electively as outpt - pt to see Dr Benavides and Dr Lopez for optimization prior any surgery
[2018-10-02 16:07] VITALS: BP 147/71; PULSE 65; RESP 20; TEMP 98; O2SAT 96
[2018-10-02] MEDS ORDERED: Insulin Lispro (humaLOG) 100 Units/ml Inj SC SCH (17:00)
== END 2018-10-02 18:06 | disposition home health service (06) ==
LOC: H.ER 13:41 → H.ERHOLD 22:26 → H.TEL 10-02 06:12
PROVIDERS: ADMIT Internal Medicine; ATTEND Internal Medicine
DX: K43.0 Incisional hernia with obstruction, without gangrene (principal); E11.65 Type 2 diabetes mellitus with hyperglycemia; E03.9 Hypothyroidism, unspecified; I10 Essential (primary) hypertension; E78.5 Hyperlipidemia, unspecified; I25.10 Atherosclerotic heart disease of native coronary artery without angina pectoris; J44.9 Chronic obstructive pulmonary disease, unspecified; J45.40 Moderate persistent asthma, uncomplicated; I25.2 Old myocardial infarction; Z79.02 Long term (current) use of antithrombotics/antiplatelets; Z79.4 Long term (current) use of insulin; Z95.1 Presence of aortocoronary bypass graft; Z87.891 Personal history of nicotine dependence; Z79.84 Long term (current) use of oral hypoglycemic drugs; Z88.1 Allergy status to other antibiotic agents
CPT/HCPCS: 36415; 74022; 74177; 80048; 80053; 81003; 82948; 85025; 85027; 96374; 96375; 96376; 99285; G0378; J1885; J2270; J7030; Q9966; Q9967

== ENCOUNTER 2018-10-03 02:27 | Inpatient (IN) | payer MEDICARE, MEDICAID ==
--- NOTE | 2018-10-03 03:04 | ED PDOC ---
HPI: Abdomen Time Seen by Provider: 10/03/18 02:44 Chief Complaint (Nursing): Abdominal Pain Chief Complaint (Provider): Abdominal Pain History Per: Patient History/Exam Limitations: no limitations Additional Complaint(s): 78 y/o female with history of multiple abdominal surgeries and known abdominal wall hernia presents with abdominal pain. Patient was admitted for abdominal wall hernia with incomplete bowel obstruction and was evaluated by surgical service who kept patient in hospital for observation. Patient was discharged but she states that when she left she was in persistent pain and pain has gotten worse since going home. Patient denies nausea or vomiting. Patient reports pain is worse with movement. Symptoms are not associated with fever, cough, shortness of breath, or chest pain. Past Medical History Reviewed: Historical Data, Nursing Documentation, Vital Signs Vital Signs: Last Vital Signs Temp 98.1 F 10/03/18 02:39 Pulse 70 10/03/18 02:39 Resp 18 10/03/18 02:39 BP 179/82 H 10/03/18 02:39 Pulse Ox 95 10/03/18 02:39 - Medical History PMH: CAD, Cardia Arrhythmia, COPD, Diabetes, HTN Denies: HIV, Chronic Kidney Disease - Surgical History Surgical History: Appendectomy, CABG (x4), Cholecystectomy, Hernia Repair - Family History Family History: States: Unknown Family Hx - Immunization History Hx Tetanus Toxoid Vaccination: No Hx Influenza Vaccination: No Hx Pneumococcal Vaccination: No - Home Medications Home Medications: Ambulatory Orders Medication Instructions Recorded Amiodarone [Cordarone] 200 mg PO Q12 09/21/17 Clopidogrel [Plavix] 75 mg PO DAILY 09/21/17 Docusate [Colace] 100 mg PO DAILY PRN 09/21/17 Insulin Aspart, Recombinant 30 unit SC BID 09/21/17 [Novolog] Insulin Glargine, Recombina 40 unit SC HS 09/21/17 [Lantus] MetFORMIN [glucoPHAGE] 1,000 mg PO BID 09/21/17 Zolpidem [Ambien] 10 mg PO HS 09/21/17 amLODIPine [Norvasc] 2.5 mg PO DAILY 09/21/17 Levothyroxine [Synthroid] 88 mcg PO DAILY #0 10/01/18 Albuterol Sulfate [Ventolin Hfa] 18 gm INH PRN PRN 10/02/18 Atorvastatin [Lipitor] 20 mg PO DAILY 10/02/18 Dextran 70/Hypromellose 15 ml BOTHEYES PRN PRN 10/02/18 [Artificial Tears Eye Drops] Ferrous Sulfate [Feosol] 325 mg PO BID 10/02/18 Fexofenadine HCl [Pebbles NF] 180 mg PO DAILY 10/02/18 Fluticasone Propionate [Flovent 50 mcg INH TID 10/02/18 Diskus] Losartan/Hydrochlorothiazide 25 - 100 mg PO DAILY 10/02/18 [Losartan-Hctz 100-25 mg Tab] Omeprazole 40 mg PO DAILY 10/02/18 Vit B Complx/Folic AC/C/Biotin 1 tab PO DAILY 10/02/18 [Lorid Tablet] - Allergies Allergies/Adverse Reactions: Allergies Allergy/AdvReac Type Severity Reaction Status Date / Time ciprofloxacin [From Cipro] Allergy RASH Verified 10/01/18 14:19 ciprofloxacin HCl Allergy RASH Verified 10/01/18 14:19 [From Cipro] Review of Systems ROS Statement: Except As Marked, All Systems Reviewed And Found Negative Constitutional: Negative for: Fever Cardiovascular: Negative for: Chest Pain Respiratory: Negative for: Cough, Shortness of Breath Gastrointestinal: Positive for: Abdominal Pain. Negative for: Nausea, Vomiting Physical Exam - Reviewed Nursing Documentation Reviewed: Yes Vital Signs Reviewed: Yes - Physical Exam Appears: Positive for: Well, Non-toxic, No Acute Distress Head Exam: Positive for: ATRAUMATIC, NORMAL INSPECTION, NORMOCEPHALIC Skin: Positive for: Normal Color, Warm, DRY Eye Exam: Positive for: EOMI, Normal appearance, PERRL ENT: Positive for: Normal ENT Inspection Neck: Positive for: Normal, Painless ROM Cardiovascular/Chest: Positive for: Regular Rate, Rhythm. Negative for: Murmur Respiratory: Positive for: Normal Breath Sounds. Negative for: Respiratory Distress Gastrointestinal/Abdominal: Positive for: Tenderness (mild diffuse tenderness), Other (obese; multiple surgical scars noted) Back: Positive for: Normal Inspection Extremity: Positive for: Normal ROM. Negative for: Pedal Edema, Deformity Neurological/Psych: Positive for: Awake, Alert, Normal Tone. Negative for: Motor/Sensory Deficits - Laboratory Results Result Diagrams: 10/03/18 03:24 10/03/18 03:24 - ECG O2 Sat by Pulse Oximetry: 95 (RA) Pulse Ox Interpretation: Normal Medical Decision Making Medical Decision Making: Time: 02:49 Impression: 78 y/o female with abdominal pain in setting of known abdominal wall hernias Initial Plan: * Labs * RAD - Abdomen * Morphine 03:03 Patient will be re-admitted. [facility] Dr. Meyer, resident on-call. Scribe Attestation: Documented by Sandoval Hoang, acting as a scribe Kirt Meredith MD Provider Scribe Attestation: All medical record entries made by the Scribe were at my direction and personally dictated by me. I have reviewed the chart and agree that the record accurately reflects my personal performance of the history, physical exam, medical decision making, and the department course for this patient. I have also personally directed, reviewed, and agree with the discharge instructions and disposition Disposition - Clinical Impression Clinical Impression: Abdominal pain - Patient ED Disposition Is Patient to be Admitted: Yes - Disposition Disposition Time: 03:03 Condition: FAIR
[2018-10-03 03:35] LABS: BASO # 0.1 K/uL (0.0-0.2); BASO % 0.6 % (0.0-2.0); EOS # 0.2 K/uL (0.0-0.7); EOS % 1.6 % (0.0-4.0); HEMOGLOBIN 11.5 g/dL (12.0-16.0); LYMPH # 1.5 K/uL (1.0-4.3); LYMPH % 14.8 % (20.0-40.0); MEAN CELL VOLUME 84.5 fl (81.0-99.0); MEAN CORPUSCULAR HEMOGLOBIN 27.6 pg (27.0-31.0); MEAN CORPUSCULAR HGB CONC 32.6 g/dL (33.0-37.0); MEAN PLATELET VOLUME 7.8 fl (7.2-11.7); MONO # 0.8 K/uL (0.0-0.8); MONO % 8.3 % (0.0-10.0); NEUT # 7.6 K/uL (1.8-7.0); NEUT % 74.7 % (50.0-75.0); NRBC % 0.1 % (0.0-0.0); RBC 4.16 Mil/uL (3.80-5.20); RED CELL DISTRIBUTION WIDTH 18.2 % (11.5-14.5); WHITE BLOOD COUNT 10.2 K/uL (4.8-10.8)
[2018-10-03 03:40] LABS: INR 1.1; PROTHROMBIN TIME 12.4 Seconds (9.8-13.1)
[2018-10-03 03:42] LABS: PARTIAL THROMBOPLASTIN TIME 32.9 Seconds (25.6-37.1)
[2018-10-03 03:51] LABS: ALBUMIN 3.9 g/dL (3.5-5.0); ALT/SGPT 37 U/L (9-52); AST/SGOT 36 U/L (14-36); BLOOD UREA NITROGEN 21 mg/dl (7-17); CALCIUM 9.2 mg/dL (8.4-10.2); GFR NON-AFRICAN AMERICAN 54; LIPASE 16 U/L (23-300)
--- NOTE | 2018-10-03 03:51 | CP.PCM.HP ---
<Braxton Meyer - Last Filed: 10/03/18 06:13> History of Present Illness - History of Present Illness History of Present Illness: 78 y/o F with a PMHx of CAD /p quad CABG, HTN, HLD, IDDM 2, OA, asthma, anemia, hypothyroidism and multiple abdominal surgeries presented to ED c/o severe lower abdominal pain that exacerbated yesterday afternoon after being discharged from hospital. Pain is described as pressure/sharp, 10/10 intensity, mainly on lower quadrants and NOT associated with nausea or vomiting. Pt denies fever, chills, headachem CP, SOB, urinary symptoms. --Pt was hospitalized 2 days ago due to similar complaint but with nausea. CT in ED on 10/01/18 showed two ventral hernias. The superior epigastric contains stomach with no evidence of obstruction. The inferior incisional hernia contains a small loop of bowel likely causing partial bowel obstruction. was discharged home from this entity several hours ago. Pt was supposed to follow up this mater as outpatient. --Pt eports having 2 bowel movements after discharge, first one was soft and well formed, 2nd one was more watery non-bloody diarrhea. PMD: [facility] [employer]ulic: Dr. Lopez Allergies: Ciprofloxacin Meds as per EMR -PMHx: Moderate Persistent asthma, hypothyroidism, CAD s/p CABG, HTN, IDDM2, HLD, OA -PSHx: Quad CABG, Ex-lap for hernia repair, cholecystectomy, appendectomy, Abdominal wall hernia repair. -Social: hx of 1/3 PPD >20 years, quit 5 months ago. Denies ETOH/Drug abuse -FHx: DM, HTN, CAD ED Course: --Morphine 2mg was administered. --XR od chest and abdomen ordered. Present on Admission - Present on Admission Any Indicators Present on Admission: No Review of Systems - Constitutional Constitutional: absent: Chills, Fever - EENT Eyes: absent: Change in Vision Nose/Mouth/Throat: absent: Nasal Congestion, Sore Throat, Facial Pain, Neck Mass - Cardiovascular Cardiovascular: absent: Chest Pain, Dyspnea, Palpitations - Respiratory Respiratory: absent: Cough, Dyspnea, Hemoptysis, Wheezing - Gastrointestinal Gastrointestinal: Abdominal Pain, Diarrhea. absent: Nausea, Vomiting - Genitourinary Genitourinary: absent: Dysuria, Flank Pain, Hematuria Past Patient History - Tetanus Immunizations Tetanus Immunization: Unknown - Past Medical History & Family History Past Medical History?: Yes - Past Social History Smoking Status: Former Smoker - CARDIAC Hx Cardia Arrhythmia: Yes Hx Hypertension: Yes - PULMONARY Hx Chronic Obstructive Pulmonary Disease (COPD): Yes - NEUROLOGICAL Hx Neurological Disorder: No - HEENT Hx HEENT Problems: No - RENAL Hx Chronic Kidney Disease: No - ENDOCRINE/METABOLIC Hx Endocrine Disorders: Yes - HEMATOLOGICAL/ONCOLOGICAL Hx Human Immunodeficiency Virus (HIV): No - INTEGUMENTARY Hx Dermatological Problems: No - MUSCULOSKELETAL/RHEUMATOLOGICAL Hx Musculoskeletal Disorders: No Hx Falls: No - GASTROINTESTINAL Hx Gastrointestinal Disorders: No - GENITOURINARY/GYNECOLOGICAL Hx Genitourinary Disorders: No - PSYCHIATRIC Hx Psychophysiologic Disorder: No Hx Substance Use: No - SURGICAL HISTORY Hx Appendectomy: Yes Hx Cholecystectomy: Yes Hx Coronary Artery Bypass Graft: Yes (x4) - ANESTHESIA Hx Anesthesia: Yes Hx Anesthesia Reactions: No Meds Allergies/Adverse Reactions: Allergies Allergy/AdvReac Type Severity Reaction Status Date / Time ciprofloxacin [From Cipro] Allergy RASH Verified 10/01/18 14:19 ciprofloxacin HCl Allergy RASH Verified 10/01/18 14:19 [From Cipro] Physical Exam - Constitutional Appears: No Acute Distress - Head Exam Head Exam: ATRAUMATIC, NORMAL INSPECTION - Eye Exam Eye Exam: EOMI, Normal appearance - ENT Exam ENT Exam: Mucous Membranes Moist - Neck Exam Neck exam: Positive for: Full Rom, Normal Inspection. Negative for: Meningismus - Respiratory Exam Respiratory Exam: NORMAL BREATHING PATTERN. absent: Rhonchi, Wheezes, Respiratory Distress - Cardiovascular Exam Cardiovascular Exam: REGULAR RHYTHM, +S1, +S2 - GI/Abdominal Exam GI & Abdominal Exam: Distended (obese. ), Soft, Tenderness (lower quadrants). absent: Guarding, Rebound, Rigid - Back Exam Back exam: absent: CVA tenderness (L), CVA tenderness (R) - Neurological Exam Neurological exam: Alert, Oriented x3 Results - Vital Signs Recent Vital Signs: Last Vital Signs Temp 98.1 F 10/03/18 02:39 Pulse 70 10/03/18 02:39 Resp 18 10/03/18 02:39 BP 179/82 H 10/03/18 02:39 Pulse Ox 95 10/03/18 03:19 - Labs Result Diagrams: 10/03/18 03:24 10/03/18 03:24 Labs: Laboratory Results - last 24 hr 10/03/18 10/03/18 10/03/18 03:24 03:24 03:24 WBC 10.2 RBC 4.16 Hgb 11.5 L Hct 35.2 MCV 84.5 MCH 27.6 MCHC 32.6 L RDW 18.2 H Plt Count 363 MPV 7.8 Neut % (Auto) 74.7 Lymph % (Auto) 14.8 L [place] % (Auto) 8.3 Eos % (Auto) 1.6 Baso % (Auto) 0.6 Neut # (Auto) 7.6 H Lymph # (Auto) 1.5 [place] # (Auto) 0.8 Eos # (Auto) 0.2 Baso # (Auto) 0.1 PT 12.4 INR 1.1 APTT 32.9 Sodium 139 Potassium 4.5 Chloride 103 Carbon Dioxide 25 Anion Gap 16 BUN 21 H Creatinine 1.0 Est GFR ( Amer) > 60 Est GFR (Non-Af Amer) 54 Random Glucose 131 H Calcium 9.2 Total Bilirubin 0.6 AST 36 D ALT 37 Alkaline Phosphatase 121 Total Protein 7.6 Albumin 3.9 Globulin 3.7 Albumin/Globulin Ratio 1.0 Lipase 16 L Assessment & Plan - Assessment and Plan (Free Text) Assessment: 78 y/o F with PMHx of CAD /p quad CABG, HTN, HLD, IDDM 2, OA, asthma, anemia, hypothyroidism and multiple abdominal surgeries re-admitted for acute abdominal pain 2/2 abdominal hernia. - CT abdomen: two ventral hernias. The superior epigastric contains stomach with no evidence of obstruction. The inferior incisional hernia contains a small loop of bowel likely causing partial bowel obstruction PLAN: >Acute abdominal pain 2/2 hernia --Likely secondary to midline incisional hernia with possible partial SBO. --NPO --General Surgery re-consulted. --Considering elective surgery repair? --Pain management: Acetaminophen for mild, Toradol for moderate and severe. --Zofran 4 mg Q6 PRN for nausea --F/U XR abdomen. >IDDM-2 --Uncontrolled --Hold Metformin 1000 mg BID --Insulin Lispro sliding scale and Hypoglycemia protocol --Monitor glucose ACHS >HTN --Chronic --Resume home meds --Monitor vitals >Constipation - Colace 100 mg PO daily >Hypothyroidism - Resume synthroid 88 mcg >Hx of CAD with CABG --Resume Plavix 75 mg daily >HLD --Home meds resumed >Anxiety --Home meds resumed, Xanax. >DVT prophylaxis --SCDs >GI prophylaxis - Pantoprazole 40 mg PO daily Case discussed with Dr Virgil Meyer PGY-2 - Date & Time Date: 10/03/18 Time: 06:36 <Tera Herman - Last Filed: 10/03/18 09:50> Results - Vital Signs Recent Vital Signs: Last Vital Signs Temp 97.9 F 10/03/18 09:05 Pulse 62 10/03/18 09:05 Resp 20 10/03/18 09:05 BP 143/74 10/03/18 09:05 Pulse Ox 94 L 10/03/18 09:05 - Labs Result Diagrams: 10/03/18 06:10 10/03/18 06:10 Labs: Laboratory Results - last 24 hr 10/03/18 10/03/18 10/03/18 03:24 03:24 03:24 WBC 10.2 RBC 4.16 Hgb 11.5 L Hct 35.2 MCV 84.5 MCH 27.6 MCHC 32.6 L RDW 18.2 H Plt Count 363 MPV 7.8 Neut % (Auto) 74.7 Lymph % (Auto) 14.8 L [place] % (Auto) 8.3 Eos % (Auto) 1.6 Baso % (Auto) 0.6 Neut # (Auto) 7.6 H Lymph # (Auto) 1.5 [place] # (Auto) 0.8 Eos # (Auto) 0.2 Baso # (Auto) 0.1 PT 12.4 INR 1.1 APTT 32.9 Sodium 139 Potassium 4.5 Chloride 103 Carbon Dioxide 25 Anion Gap 16 BUN 21 H Creatinine 1.0 Est GFR ( Amer) > 60 Est GFR (Non-Af Amer) 54 POC Glucose (mg/dL) Random Glucose 131 H Lactic Acid Calcium 9.2 Phosphorus Magnesium Total Bilirubin 0.6 AST 36 D ALT 37 Alkaline Phosphatase 121 Total Protein 7.6 Albumin 3.9 Globulin 3.7 Albumin/Globulin Ratio 1.0 Lipase 16 L Urine Color Urine Clarity Urine pH Ur Specific [place] Urine Protein Urine Glucose (UA) Urine Ketones Urine Blood Urine Nitrate Urine Bilirubin Urine Urobilinogen Ur Leukocyte Esterase Urine RBC (Auto) Urine Microscopic WBC Ur Squamous Epith Cells Urine Bacteria 10/03/18 10/03/18 10/03/18 05:23 06:10 06:10 WBC 9.0 RBC 4.00 Hgb 10.9 L Hct 33.9 L MCV 84.8 MCH 27.3 MCHC 32.2 L RDW 18.3 H Plt Count 321 MPV 8.0 Neut % (Auto) 70.4 Lymph % (Auto) 19.4 L [place] % (Auto) 7.8 Eos % (Auto) 1.8 Baso % (Auto) 0.6 Neut # (Auto) 6.3 Lymph # (Auto) 1.7 [place] # (Auto) 0.7 Eos # (Auto) 0.2 Baso # (Auto) 0.1 PT INR APTT Sodium 139 Potassium 4.1 Chloride 103 Carbon Dioxide 25 Anion Gap 15 BUN 21 H Creatinine 0.9 Est GFR ( Amer) > 60 Est GFR (Non-Af Amer) > 60 POC Glucose (mg/dL) 181 H Random Glucose 173 H Lactic Acid Calcium 8.9 Phosphorus 3.5 Magnesium 1.7 Total Bilirubin 0.6 AST 32 ALT 34 Alkaline Phosphatase 114 Total Protein 7.0 Albumin 3.6 Globulin 3.5 Albumin/Globulin Ratio 1.0 Lipase 13 L Urine Color Urine Clarity Urine pH Ur Specific [place] Urine Protein Urine Glucose (UA) Urine Ketones Urine Blood Urine Nitrate Urine Bilirubin Urine Urobilinogen Ur Leukocyte Esterase Urine RBC (Auto) Urine Microscopic WBC Ur Squamous Epith Cells Urine Bacteria 10/03/18 10/03/18 06:30 08:00 WBC RBC Hgb Hct MCV MCH MCHC RDW Plt Count MPV Neut % (Auto) Lymph % (Auto) [place] % (Auto) Eos % (Auto) Baso % (Auto) Neut # (Auto) Lymph # (Auto) [place] # (Auto) Eos # (Auto) Baso # (Auto) PT INR APTT Sodium Potassium Chloride Carbon Dioxide Anion Gap BUN Creatinine Est GFR ( Amer) Est GFR (Non-Af Amer) POC Glucose (mg/dL) Random Glucose Lactic Acid 0.9 Calcium Phosphorus Magnesium Total Bilirubin AST ALT Alkaline Phosphatase Total Protein Albumin Globulin Albumin/Globulin Ratio Lipase Urine Color Yellow Urine Clarity Slighty-cloudy Urine pH 6.0 Ur Specific [place] 1.010 Urine Protein Negative Urine Glucose (UA) Neg Urine Ketones Negative Urine Blood Small Urine Nitrate Positive H Urine Bilirubin Negative Urine Urobilinogen 2.0 H Ur Leukocyte Esterase Trace Urine RBC (Auto) 2 Urine Microscopic WBC 7 H Ur Squamous Epith Cells < 1 Urine Bacteria Rare Attending/Attestation - Attestation I have personally seen and examined this patient.: Yes I have fully participated in the care of the patient.: Yes I have reviewed all pertinent clinical information: Yes Notes (Text): 10/03/18 09:29 I saw, examined and discussed this patient with Dr Meyer. I agree with the assessment and plan outlined which represent direct input. This is a 78 years old female who was admitted on 10/01/18 with a partial encarcerated abdominal wall Hernia which was reduced by the surgical team. She now returns complaining of abdominal pain. We will consult surgery to again evaluate this patient. Continue to treat Diabetes Mellitus, HTN an dHypothyroidism. Tera Herman MD
[2018-10-03] MEDS ORDERED: Albuterol HFA 90 mcg/actuation (8 g) INH PRN (04:07)
[2018-10-03 04:18] VITALS: BMI 38.1
[2018-10-03] MEDS ORDERED: Glucagon Recombinant 1 mg Inj IM PRN (05:18)
[2018-10-03] MEDS ORDERED: Dextrose 50% SYRINGE Inj (50 ml) IV PRN (05:18)
[2018-10-03] MEDS: Levothyroxine 88 MCG TAB PO SCH (06:22)
[2018-10-03 06:39] LABS: BASO # 0.1 K/uL (0.0-0.2); BASO % 0.6 % (0.0-2.0); EOS # 0.2 K/uL (0.0-0.7); EOS % 1.8 % (0.0-4.0); HEMOGLOBIN 10.9 g/dL (12.0-16.0); LYMPH # 1.7 K/uL (1.0-4.3); LYMPH % 19.4 % (20.0-40.0); MEAN CELL VOLUME 84.8 fl (81.0-99.0); MEAN CORPUSCULAR HEMOGLOBIN 27.3 pg (27.0-31.0); MEAN CORPUSCULAR HGB CONC 32.2 g/dL (33.0-37.0); MONO # 0.7 K/uL (0.0-0.8); MONO % 7.8 % (0.0-10.0); NEUT # 6.3 K/uL (1.8-7.0); NEUT % 70.4 % (50.0-75.0); RED CELL DISTRIBUTION WIDTH 18.3 % (11.5-14.5)
[2018-10-03 06:48] LABS: ALBUMIN 3.6 g/dL (3.5-5.0); ALT/SGPT 34 U/L (9-52); AST/SGOT 32 U/L (14-36); BLOOD UREA NITROGEN 21 mg/dl (7-17); CALCIUM 8.9 mg/dL (8.4-10.2); GFR NON-AFRICAN AMERICAN > 60; LIPASE 13 U/L (23-300)
[2018-10-03 06:54] LABS: SQUAMOUS EPITHIAL < 1 /hpf (0-5); URINE BACTERIA RARE (<OCC); URINE BILIRUBIN NEGATIVE (NEGATIVE); URINE BLOOD SMALL (NEGATIVE); URINE CLARITY SLIGHTY-CLOUDY (Clear); URINE COLOR YELLOW (YELLOW); URINE GLUCOSE (UA) NEG (NEGATIVE); URINE LEUKOCYTE ESTERASE TRACE Leu/uL (Negative); URINE PROTEIN NEGATIVE (NEGATIVE)
[2018-10-03] MEDS ORDERED: INSULIN ASPART RECOMBINANT SC SCH (07:30)
--- NOTE | 2018-10-03 08:06 | CP.PCM.CON ---
<Sandra Landaverde - Last Filed: 10/03/18 09:16> History of Present Illness - History of Present Illness History of Present Illness: General Surgery note for Dr. Cadet, 78 y/o female patient with PMHx of asthma, CAD s/p quad CABG, HTN, HLD, IDDM2, OA, Anemia and hypothyroidism was seen and evaluated at bedside this AM due to complaints of diffuse abdominal pain. Patient was admitted to the hospital on 10/01/18 for observation, and was discharged on 10/02 s/p reduction of ventral hernia. Patient was to follow up as an outpatient for elective surgical repair. Patient states she returned to the Emergency department due to persistent, worsening pain. Patient denies any nausea or vomiting at this time. She reports passing gas and having a BM this AM. Patient denies any fever, cough, shortness of breath, or chest pain. PMHx: Moderate Persistent asthma, hypothyroidism, CAD s/p CABG, HTN, IDDM2, HLD, OA PSHx: Quad CABG, appendectomy, cholecystectomy, Abdominal wall hernia, multiple other abdominal surgeries X 10 ALL: Ciprofloxacin Social: hx of 1/3 PPD >20 years, quit several months ago. Denies ETOH/Drug abuse Review of Systems - Review of Systems All systems: reviewed and no additional remarkable complaints except Review of Systems: As per HPI Past Patient History - Tetanus Immunizations Tetanus Immunization: Unknown - Past Medical History & Family History Past Medical History?: Yes - Past Social History Smoking Status: Former Smoker - CARDIAC Hx Cardia Arrhythmia: Yes Hx Hypertension: Yes - PULMONARY Hx Chronic Obstructive Pulmonary Disease (COPD): Yes - NEUROLOGICAL Hx Neurological Disorder: No - HEENT Hx HEENT Problems: No - RENAL Hx Chronic Kidney Disease: No - ENDOCRINE/METABOLIC Hx Endocrine Disorders: Yes - HEMATOLOGICAL/ONCOLOGICAL Hx Human Immunodeficiency Virus (HIV): No - INTEGUMENTARY Hx Dermatological Problems: No - MUSCULOSKELETAL/RHEUMATOLOGICAL Hx Musculoskeletal Disorders: No Hx Falls: No - GASTROINTESTINAL Hx Gastrointestinal Disorders: No - GENITOURINARY/GYNECOLOGICAL Hx Genitourinary Disorders: No - PSYCHIATRIC Hx Psychophysiologic Disorder: No Hx Substance Use: No - SURGICAL HISTORY Hx Appendectomy: Yes Hx Cholecystectomy: Yes Hx Coronary Artery Bypass Graft: Yes (x4) - ANESTHESIA Hx Anesthesia: Yes Hx Anesthesia Reactions: No Meds Allergies/Adverse Reactions: Allergies Allergy/AdvReac Type Severity Reaction Status Date / Time ciprofloxacin [From Cipro] Allergy RASH Verified 10/01/18 14:19 ciprofloxacin HCl Allergy RASH Verified 10/01/18 14:19 [From Cipro] - Medications Medications: Current Medications Acetaminophen (Tylenol 325mg Tab) 650 mg PO Q4 PRN PRN Reason: Pain, Mild (1-3) Albuterol (Ventolin Hfa 90 Mcg/Actuation (8 G)) 2 puff INH RQ4 PRN PRN Reason: Shortness of Breath Amlodipine Besylate (Norvasc) 10 mg PO DAILY [facility] Atorvastatin Calcium (Lipitor) 20 mg PO DAILY [facility] Clopidogrel Bisulfate (Plavix) 75 mg PO DAILY [facility] Dextrose (Dextrose 50% Inj) 0 ml IV STAT PRN; Protocol PRN Reason: Hypoglycemia Protocol Dextrose (Glutose 15) 0 gm PO ONCE PRN; Protocol PRN Reason: Hypoglycemia Protocol Docusate Sodium (Colace) 100 mg PO DAILY PRN PRN Reason: Constipation Ferrous Sulfate (Feosol) 325 mg PO BID [facility] Glucagon (Glucagen Diagnostic Kit) 0 mg IM STAT PRN; Protocol PRN Reason: Hypoglycemia Protocol HCTZ/Losartan Potassium (Hyzaar 12.5 Mg-50 Mg) 2 tab PO DAILY [facility] Insulin Detemir (Levemir) 15 units SC HS [facility] Insulin Human Lispro (Humalog) 7 units SC AC [facility] Insulin Human Lispro (Humalog) 0 units SC ACCU-CHECK JAN; Protocol Ketorolac Tromethamine (Toradol) 30 mg IVP Q6 PRN PRN Reason: Pain, severe (8-10) Last Admin: 10/03/18 06:13 Dose: 30 mg Ketorolac Tromethamine (Toradol) 15 mg IVP Q6 PRN PRN Reason: Pain, moderate (4-7) Levothyroxine Sodium (Synthroid) 88 mcg PO DAILY@0630 [facility] Last Admin: 10/03/18 06:22 Dose: 88 mcg Metformin HCl (Glucophage) 1,000 mg PO BID [facility] Ondansetron HCl (Zofran Inj) 4 mg IVP Q4 PRN PRN Reason: Nausea/Vomiting Pantoprazole Sodium (Protonix Ec Tab) 40 mg PO DAILY [facility] Zolpidem Tartrate (Ambien) 5 mg PO HS [facility] Physical Exam - Constitutional Appears: Well, Non-toxic, No Acute Distress - Head Exam Head Exam: ATRAUMATIC, NORMOCEPHALIC - Eye Exam Eye Exam: Normal appearance - ENT Exam ENT Exam: Mucous Membranes Moist - Respiratory Exam Respiratory Exam: absent: Accessory Muscle Use, Respiratory Distress - Cardiovascular Exam Cardiovascular Exam: REGULAR RHYTHM. absent: Tachycardia - GI/Abdominal Exam GI & Abdominal Exam: Hernia, Tenderness Additional comments: well healed scars from prior surgeries, ventral hernia - Neurological Exam Neurological exam: Alert, Oriented x3 - Psychiatric Exam Psychiatric exam: Normal Affect, Normal Mood Results - Vital Signs Recent Vital Signs: Last Vital Signs Temp 97.5 F L 10/03/18 05:15 Pulse 73 10/03/18 05:15 Resp 19 10/03/18 05:15 BP 167/79 H 10/03/18 05:15 Pulse Ox 95 10/03/18 05:15 - Labs Result Diagrams: 10/03/18 06:10 10/03/18 06:10 Labs: Laboratory Results - last 24 hr 10/03/18 10/03/18 10/03/18 03:24 03:24 03:24 WBC 10.2 RBC 4.16 Hgb 11.5 L Hct 35.2 MCV 84.5 MCH 27.6 MCHC 32.6 L RDW 18.2 H Plt Count 363 MPV 7.8 Neut % (Auto) 74.7 Lymph % (Auto) 14.8 L [place] % (Auto) 8.3 Eos % (Auto) 1.6 Baso % (Auto) 0.6 Neut # (Auto) 7.6 H Lymph # (Auto) 1.5 [place] # (Auto) 0.8 Eos # (Auto) 0.2 Baso # (Auto) 0.1 PT 12.4 INR 1.1 APTT 32.9 Sodium 139 Potassium 4.5 Chloride 103 Carbon Dioxide 25 Anion Gap 16 BUN 21 H Creatinine 1.0 Est GFR ( Amer) > 60 Est GFR (Non-Af Amer) 54 POC Glucose (mg/dL) Random Glucose 131 H Calcium 9.2 Phosphorus Magnesium Total Bilirubin 0.6 AST 36 D ALT 37 Alkaline Phosphatase 121 Total Protein 7.6 Albumin 3.9 Globulin 3.7 Albumin/Globulin Ratio 1.0 Lipase 16 L Urine Color Urine Clarity Urine pH Ur Specific [employer] Urine Protein Urine Glucose (UA) Urine Ketones Urine Blood Urine Nitrate Urine Bilirubin Urine Urobilinogen Ur Leukocyte Esterase Urine RBC (Auto) Urine Microscopic WBC Ur Squamous Epith Cells Urine Bacteria 03/26/19 03/26/19 03/26/19 05:23 06:10 06:10 WBC 9.0 RBC 4.00 Hgb 10.9 L Hct 33.9 L MCV 84.8 MCH 27.3 MCHC 32.2 L RDW 18.3 H Plt Count 321 MPV 8.0 Neut % (Auto) 70.4 Lymph % (Auto) 19.4 L [place] % (Auto) 7.8 Eos % (Auto) 1.8 Baso % (Auto) 0.6 Neut # (Auto) 6.3 Lymph # (Auto) 1.7 [place] # (Auto) 0.7 Eos # (Auto) 0.2 Baso # (Auto) 0.1 PT INR APTT Sodium 139 Potassium 4.1 Chloride 103 Carbon Dioxide 25 Anion Gap 15 BUN 21 H Creatinine 0.9 Est GFR ( Amer) > 60 Est GFR (Non-Af Amer) > 60 POC Glucose (mg/dL) 181 H Random Glucose 173 H Calcium 8.9 Phosphorus 3.5 Magnesium 1.7 Total Bilirubin 0.6 AST 32 ALT 34 Alkaline Phosphatase 114 Total Protein 7.0 Albumin 3.6 Globulin 3.5 Albumin/Globulin Ratio 1.0 Lipase 13 L Urine Color Urine Clarity Urine pH Ur Specific [employer] Urine Protein Urine Glucose (UA) Urine Ketones Urine Blood Urine Nitrate Urine Bilirubin Urine Urobilinogen Ur Leukocyte Esterase Urine RBC (Auto) Urine Microscopic WBC Ur Squamous Epith Cells Urine Bacteria 10/03/18 06:30 WBC RBC Hgb Hct MCV MCH MCHC RDW Plt Count MPV Neut % (Auto) Lymph % (Auto) [place] % (Auto) Eos % (Auto) Baso % (Auto) Neut # (Auto) Lymph # (Auto) [place] # (Auto) Eos # (Auto) Baso # (Auto) PT INR APTT Sodium Potassium Chloride Carbon Dioxide Anion Gap BUN Creatinine Est GFR ( Amer) Est GFR (Non-Af Amer) POC Glucose (mg/dL) Random Glucose Calcium Phosphorus Magnesium Total Bilirubin AST ALT Alkaline Phosphatase Total Protein Albumin Globulin Albumin/Globulin Ratio Lipase Urine Color Yellow Urine Clarity Slighty-cloudy Urine pH 6.0 Ur Specific [employer] 1.010 Urine Protein Negative Urine Glucose (UA) Neg Urine Ketones Negative Urine Blood Small Urine Nitrate Positive H Urine Bilirubin Negative Urine Urobilinogen 2.0 H Ur Leukocyte Esterase Trace Urine RBC (Auto) 2 Urine Microscopic WBC 7 H Ur Squamous Epith Cells < 1 Urine Bacteria Rare Assessment & Plan - Assessment and Plan (Free Text) Assessment: 78 y/o female with SBO likely secondary to reducible incisional hernia Plan: Started on Clear Liquid Diet Plan outpatient follow up for elective surgery monitor bowel function Serial abdominal exams Will follow Further management per medical team case discussed with Dr. Chichi Landaverde PGY1 - Date & Time Date: 10/03/18 Time: 09:19 <Brian Joe - Last Filed: 10/03/18 10:59> Meds - Medications Medications: Current Medications Acetaminophen (Tylenol 325mg Tab) 650 mg PO Q4 PRN PRN Reason: Pain, Mild (1-3) Albuterol (Ventolin Hfa 90 Mcg/Actuation (8 G)) 2 puff INH RQ4 PRN PRN Reason: Shortness of Breath Amlodipine Besylate (Norvasc) 10 mg PO DAILY [facility] Last Admin: 10/03/18 08:59 Dose: 10 mg Atorvastatin Calcium (Lipitor) 20 mg PO DAILY [facility] Last Admin: 10/03/18 08:55 Dose: 20 mg Clopidogrel Bisulfate (Plavix) 75 mg PO DAILY [facility] Dextrose (Dextrose 50% Inj) 0 ml IV STAT PRN; Protocol PRN Reason: Hypoglycemia Protocol Dextrose (Glutose 15) 0 gm PO ONCE PRN; Protocol PRN Reason: Hypoglycemia Protocol Docusate Sodium (Colace) 100 mg PO DAILY PRN PRN Reason: Constipation Ferrous Sulfate (Feosol) 325 mg PO BID [facility] Last Admin: 10/03/18 08:54 Dose: 325 mg Glucagon (Glucagen Diagnostic Kit) 0 mg IM STAT PRN; Protocol PRN Reason: Hypoglycemia Protocol HCTZ/Losartan Potassium (Hyzaar 12.5 Mg-50 Mg) 2 tab PO DAILY [facility] Last Admin: 10/03/18 08:58 Dose: 2 tab Insulin Detemir (Levemir) 15 units SC HS [facility] Insulin Human Lispro (Humalog) 7 units SC AC [facility] Last Admin: 10/03/18 10:33 Dose: 7 units Insulin Human Lispro (Humalog) 0 units SC ACCU-CHECK JAN; Protocol Last Admin: 10/03/18 10:34 Dose: 2 units Ketorolac Tromethamine (Toradol) 30 mg IVP Q6 PRN PRN Reason: Pain, severe (8-10) Last Admin: 10/03/18 06:13 Dose: 30 mg Ketorolac Tromethamine (Toradol) 15 mg IVP Q6 PRN PRN Reason: Pain, moderate (4-7) Levothyroxine Sodium (Synthroid) 88 mcg PO DAILY@0630 [facility] Last Admin: 10/03/18 06:22 Dose: 88 mcg Metformin HCl (Glucophage) 1,000 mg PO BID [facility] Ondansetron HCl (Zofran Inj) 4 mg IVP Q4 PRN PRN Reason: Nausea/Vomiting Pantoprazole Sodium (Protonix Ec Tab) 40 mg PO DAILY [facility] Last Admin: 10/03/18 08:59 Dose: 40 mg Zolpidem Tartrate (Ambien) 5 mg PO [facility] Results - Vital Signs Recent Vital Signs: Last Vital Signs Temp 97.9 F 10/03/18 09:05 Pulse 62 10/03/18 09:05 Resp 20 10/03/18 09:05 BP 143/74 10/03/18 09:05 Pulse Ox 94 L 10/03/18 09:05 - Labs Result Diagrams: 10/03/18 06:10 10/03/18 06:10 Labs: Laboratory Results - last 24 hr 10/03/18 10/03/18 10/03/18 03:24 03:24 03:24 WBC 10.2 RBC 4.16 Hgb 11.5 L Hct 35.2 MCV 84.5 MCH 27.6 MCHC 32.6 L RDW 18.2 H Plt Count 363 MPV 7.8 Neut % (Auto) 74.7 Lymph % (Auto) 14.8 L [place] % (Auto) 8.3 Eos % (Auto) 1.6 Baso % (Auto) 0.6 Neut # (Auto) 7.6 H Lymph # (Auto) 1.5 [place] # (Auto) 0.8 Eos # (Auto) 0.2 Baso # (Auto) 0.1 PT 12.4 INR 1.1 APTT 32.9 Sodium 139 Potassium 4.5 Chloride 103 Carbon Dioxide 25 Anion Gap 16 BUN 21 H Creatinine 1.0 Est GFR ( Amer) > 60 Est GFR (Non-Af Amer) 54 POC Glucose (mg/dL) Random Glucose 131 H Lactic Acid Calcium 9.2 Phosphorus Magnesium Total Bilirubin 0.6 AST 36 D ALT 37 Alkaline Phosphatase 121 Total Protein 7.6 Albumin 3.9 Globulin 3.7 Albumin/Globulin Ratio 1.0 Lipase 16 L Urine Color Urine Clarity Urine pH Ur Specific [employer] Urine Protein Urine Glucose (UA) Urine Ketones Urine Blood Urine Nitrate Urine Bilirubin Urine Urobilinogen Ur Leukocyte Esterase Urine RBC (Auto) Urine Microscopic WBC Ur Squamous Epith Cells Urine Bacteria 10/03/18 10/03/18 10/03/18 05:23 06:10 06:10 WBC 9.0 RBC 4.00 Hgb 10.9 L Hct 33.9 L MCV 84.8 MCH 27.3 MCHC 32.2 L RDW 18.3 H Plt Count 321 MPV 8.0 Neut % (Auto) 70.4 Lymph % (Auto) 19.4 L [place] % (Auto) 7.8 Eos % (Auto) 1.8 Baso % (Auto) 0.6 Neut # (Auto) 6.3 Lymph # (Auto) 1.7 [place] # (Auto) 0.7 Eos # (Auto) 0.2 Baso # (Auto) 0.1 PT INR APTT Sodium 139 Potassium 4.1 Chloride 103 Carbon Dioxide 25 Anion Gap 15 BUN 21 H Creatinine 0.9 Est GFR ( Amer) > 60 Est GFR (Non-Af Amer) > 60 POC Glucose (mg/dL) 181 H Random Glucose 173 H Lactic Acid Calcium 8.9 Phosphorus 3.5 Magnesium 1.7 Total Bilirubin 0.6 AST 32 ALT 34 Alkaline Phosphatase 114 Total Protein 7.0 Albumin 3.6 Globulin 3.5 Albumin/Globulin Ratio 1.0 Lipase 13 L Urine Color Urine Clarity Urine pH Ur Specific [employer] Urine Protein Urine Glucose (UA) Urine Ketones Urine Blood Urine Nitrate Urine Bilirubin Urine Urobilinogen Ur Leukocyte Esterase Urine RBC (Auto) Urine Microscopic WBC Ur Squamous Epith Cells Urine Bacteria 10/03/18 10/03/18 06:30 08:00 WBC RBC Hgb Hct MCV MCH MCHC RDW Plt Count MPV Neut % (Auto) Lymph % (Auto) [place] % (Auto) Eos % (Auto) Baso % (Auto) Neut # (Auto) Lymph # (Auto) [place] # (Auto) Eos # (Auto) Baso # (Auto) PT INR APTT Sodium Potassium Chloride Carbon Dioxide Anion Gap BUN Creatinine Est GFR ( Amer) Est GFR (Non-Af Amer) POC Glucose (mg/dL) Random Glucose Lactic Acid 0.9 Calcium Phosphorus Magnesium Total Bilirubin AST ALT Alkaline Phosphatase Total Protein Albumin Globulin Albumin/Globulin Ratio Lipase Urine Color Yellow Urine Clarity Slighty-cloudy Urine pH 6.0 Ur Specific [employer] 1.010 Urine Protein Negative Urine Glucose (UA) Neg Urine Ketones Negative Urine Blood Small Urine Nitrate Positive H Urine Bilirubin Negative Urine Urobilinogen 2.0 H Ur Leukocyte Esterase Trace Urine RBC (Auto) 2 Urine Microscopic WBC 7 H Ur Squamous Epith Cells < 1 Urine Bacteria Rare Assessment & Plan - Assessment and Plan (Free Text) Plan: 78yo F with extensive medical and surgical history returned to ED for evaluation of abdominal pain. Pt has a known history of incisional hernias. Pt currently reports intermittent abdominal discomfort, tolerating liquid diet, no nausea or vomiting. Passing flatus and having BM. Pt currently on plavix last dose on 10/03 gen: awake, alert, NAD HEENT: NC/AT, EOMI, PERRLA no acute respiratory distress abd: obese, ND, well healed midline incision, minimal discomfort to mid abdomen on deep palpation, no peritoneal signs a/p 78yo F with extensive medical and surgical history with intermittent abdominal discomfort due to incisional hernias - pts abdominal exam is benign -chronic hernias, non incarcerated -pt will need to be off plavix for atleast 7 days prior to any surgical intervention -given pts extensive medical history would recommend elective hernia repair, cardiac clearance -recommend to advance diet as tolerated - pain control -can f/u in office with Dr. Cadet for elective repair
--- NOTE | 2018-10-03 08:21 | CARD ---
APPROVED REPORT Date of service: 10/03/2018 EKG Measurement Heart [id number] <Conclusion> Sinus rhythm with 1st degree AV block Left ventricular hypertrophy with repolarization abnormality Prolonged QT Abnormal ECG
[2018-10-03] MEDS: HCTZ/Losartan 12.5/50 Tab PO SCH (08:58)
[2018-10-03] MEDS: Pantoprazole 40 mg EC Tab PO SCH (08:59)
[2018-10-03] MEDS ORDERED: Enoxaparin 40 mg Syringe SC SCH (09:00)
[2018-10-03] MEDS ORDERED: FOLIC AC PO SCH (09:00)
[2018-10-03] MEDS ORDERED: BIOTIN PO SCH (09:00)
[2018-10-03] MEDS ORDERED: [UNRECOGNIZED DRUG - OTHER] PO SCH (09:00)
[2018-10-03] MEDS ORDERED: LOSARTAN PO SCH (09:00)
[2018-10-03] MEDS ORDERED: HYDROCHLOROTHIAZIDE PO SCH (09:00)
--- NOTE | 2018-10-03 10:02 | RAD ---
Date of service: 10/03/2018 HISTORY: abd pain COMPARISON: 09/22/2017 TECHNIQUE: 1 view obtained. FINDINGS: BOWEL: There is oral contrast seen throughout the colon as result of previous CT examination on 10/01/2018. There are dilated loops of small bowel seen in the central abdomen. This may indicate an ileus. Mechanical bowel obstruction seen some likely given the passage of oral contrast to the colon. Nevertheless, follow-up is advised. No masses or abnormal calcifications are identified. There is no hepatic or splenic enlargement. An AP chest radiograph demonstrates mild cardiomegaly. No consolidation or pleural effusion is seen. There is no pneumothorax. Sternotomy wires are noted. BONES: Normal. OTHER FINDINGS: None. IMPRESSION: Nonspecific bowel gas pattern. Recommend follow-up.
[2018-10-03] MEDS: Insulin Lispro (humaLOG) 100 Units/ml Inj SC SCH ×7 (10:33→23:43)
[2018-10-03] MEDS: Insulin Detemir 100 Units/ml Inj SC SCH (22:04)
[2018-10-04] MEDS: Levothyroxine 88 MCG TAB PO SCH (05:32)
[2018-10-04 06:34] LABS: HEMOGLOBIN 10.5 g/dL (12.0-16.0); MEAN CELL VOLUME 85.3 fl (81.0-99.0); MEAN CORPUSCULAR HEMOGLOBIN 27.1 pg (27.0-31.0); MEAN CORPUSCULAR HGB CONC 31.8 g/dL (33.0-37.0); RBC 3.88 Mil/uL (3.80-5.20); RED CELL DISTRIBUTION WIDTH 18.1 % (11.5-14.5); WHITE BLOOD COUNT 7.5 K/uL (4.8-10.8)
[2018-10-04 07:07] LABS: ALBUMIN 3.2 g/dL (3.5-5.0); ALT/SGPT 41 U/L (9-52); AST/SGOT 28 U/L (14-36); BLOOD UREA NITROGEN 24 mg/dl (7-17); CALCIUM 8.1 mg/dL (8.4-10.2); GFR NON-AFRICAN AMERICAN 54
[2018-10-04] MEDS: Insulin Lispro (humaLOG) 100 Units/ml Inj SC SCH ×7 (08:40→23:57)
[2018-10-04] MEDS: Pantoprazole 40 mg EC Tab PO SCH (08:42)
[2018-10-04] MEDS: HCTZ/Losartan 12.5/50 Tab PO SCH (08:42)
--- NOTE | 2018-10-04 11:28 | CP.PCM.PN ---
<Mallory Bustamante - Last Filed: 10/04/18 11:29> Subjective - Date & Time of Evaluation Date of Evaluation: 10/04/18 Time of Evaluation: 11:27 - Subjective Subjective: General Surgery Pt seen and examined by Dr. Cadet this AM. She reports tolerating diet, passing gas and having BMs. She denies having abdominal pain at this time. Labs and vitals noted. PE Gen: Pt asleep, easily arousable. Obese Skin: warm and dry Resp: (-) tachypnea Abd: Soft, NTND, (+) reducible hernia A/P 78yo F with extensive medical and surgical history with intermittent abdominal discomfort due to incisional hernias -Continue current solid diet. -given pts extensive medical history would recommend elective hernia repair, cardiac clearance -can f/u in office with for elective repair Objective - Vital Signs/Intake and Output Vital Signs (last 24 hours): Temp Pulse Resp BP Pulse Ox 97.8 F 64 20 149/67 90 L 10/04/18 08:21 10/04/18 08:43 10/04/18 08:21 10/04/18 08:43 10/04/18 08:21 - Medications Medications: Current Medications Acetaminophen (Tylenol 325mg Tab) 650 mg PO Q4 PRN PRN Reason: Pain, Mild (1-3) Albuterol (Ventolin Hfa 90 Mcg/Actuation (8 G)) 2 puff INH RQ4 PRN PRN Reason: Shortness of Breath Last Admin: 10/03/18 16:23 Dose: 2 puff Amlodipine Besylate (Norvasc) 10 mg PO DAILY [facility] Last Admin: 10/04/18 08:43 Dose: 10 mg Atorvastatin Calcium (Lipitor) 20 mg PO DAILY [facility] Last Admin: 10/04/18 08:42 Dose: 20 mg Clopidogrel Bisulfate (Plavix) 75 mg PO DAILY [facility] Dextrose (Dextrose 50% Inj) 0 ml IV STAT PRN; Protocol PRN Reason: Hypoglycemia Protocol Dextrose (Glutose 15) 0 gm PO ONCE PRN; Protocol PRN Reason: Hypoglycemia Protocol Docusate Sodium (Colace) 100 mg PO DAILY PRN PRN Reason: Constipation Ferrous Sulfate (Feosol) 325 mg PO BID [facility] Last Admin: 10/04/18 08:40 Dose: 325 mg Glucagon (Glucagen Diagnostic Kit) 0 mg IM STAT PRN; Protocol PRN Reason: Hypoglycemia Protocol HCTZ/Losartan Potassium (Hyzaar 12.5 Mg-50 Mg) 2 tab PO DAILY [facility] Last Admin: 10/04/18 08:42 Dose: 2 tab Insulin Detemir (Levemir) 15 units SC HS [facility] Last Admin: 10/03/18 22:04 Dose: 15 units Insulin Human Lispro (Humalog) 7 units SC AC [facility] Last Admin: 10/04/18 08:41 Dose: 7 units Insulin Human Lispro (Humalog) 0 units SC ACCU-CHECK [facility]; Protocol Last Admin: 10/04/18 08:40 Dose: 2 units Ketorolac Tromethamine (Toradol) 30 mg IVP Q6 PRN PRN Reason: Pain, severe (8-10) Last Admin: 10/03/18 12:07 Dose: 30 mg Ketorolac Tromethamine (Toradol) 15 mg IVP Q6 PRN PRN Reason: Pain, moderate (4-7) Last Admin: 10/03/18 21:50 Dose: 15 mg Levothyroxine Sodium (Synthroid) 88 mcg PO DAILY@0630 [facility] Last Admin: 10/04/18 05:32 Dose: 88 mcg Metformin HCl (Glucophage) 1,000 mg PO BID [facility] [place] Ondansetron HCl (Zofran Inj) 4 mg IVP Q4 PRN PRN Reason: Nausea/Vomiting Last Admin: 10/03/18 19:32 Dose: 4 mg Pantoprazole Sodium (Protonix Ec Tab) 40 mg PO DAILY [facility] Last Admin: 10/04/18 08:42 Dose: 40 mg Trimethoprim/Sulfamethoxazole (Bactrim Ds Tab) 1 tab PO Q12 [facility]; Protocol Zolpidem Tartrate (Ambien) 5 mg PO [facility] Last Admin: 10/03/18 21:50 Dose: 5 mg - Labs Labs: 10/04/18 05:50 10/04/18 05:50 PT 12.4 Seconds (9.8-13.1) 10/03/18 03:24 INR 1.1 10/03/18 03:24 APTT 32.9 Seconds (25.6-37.1) 10/03/18 03:24 <Riaz Cadet - Last Filed: 10/04/18 11:31> Subjective - Subjective Subjective: Patient was seen and examined at the bedside. Agree with note above. Objective - Vital Signs/Intake and Output Vital Signs (last 24 hours): Temp Pulse Resp BP Pulse Ox 97.8 F 64 20 149/67 90 L 10/04/18 08:21 10/04/18 08:43 10/04/18 08:21 10/04/18 08:43 10/04/18 08:21 - Medications Medications: Current Medications Acetaminophen (Tylenol 325mg Tab) 650 mg PO Q4 PRN PRN Reason: Pain, Mild (1-3) Albuterol (Ventolin Hfa 90 Mcg/Actuation (8 G)) 2 puff INH RQ4 PRN PRN Reason: Shortness of Breath Last Admin: 10/03/18 16:23 Dose: 2 puff Amlodipine Besylate (Norvasc) 10 mg PO DAILY [facility] [place] Last Admin: 10/04/18 08:43 Dose: 10 mg Atorvastatin Calcium (Lipitor) 20 mg PO DAILY [facility] [place] Last Admin: 10/04/18 08:42 Dose: 20 mg Clopidogrel Bisulfate (Plavix) 75 mg PO DAILY [facility] Dextrose (Dextrose 50% Inj) 0 ml IV STAT PRN; Protocol PRN Reason: Hypoglycemia Protocol Dextrose (Glutose 15) 0 gm PO ONCE PRN; Protocol PRN Reason: Hypoglycemia Protocol Docusate Sodium (Colace) 100 mg PO DAILY PRN PRN Reason: Constipation Ferrous Sulfate (Feosol) 325 mg PO BID [facility] [place] Last Admin: 10/04/18 08:40 Dose: 325 mg Glucagon (Glucagen Diagnostic Kit) 0 mg IM STAT PRN; Protocol PRN Reason: Hypoglycemia Protocol HCTZ/Losartan Potassium (Hyzaar 12.5 Mg-50 Mg) 2 tab PO DAILY [facility] Last Admin: 10/04/18 08:42 Dose: 2 tab Insulin Detemir (Levemir) 15 units SC HS [facility] Last Admin: 10/03/18 22:04 Dose: 15 units Insulin Human Lispro (Humalog) 7 units SC AC [facility] Last Admin: 10/04/18 08:41 Dose: 7 units Insulin Human Lispro (Humalog) 0 units SC ACCU-CHECK JAN; Protocol Last Admin: 10/04/18 08:40 Dose: 2 units Ketorolac Tromethamine (Toradol) 30 mg IVP Q6 PRN PRN Reason: Pain, severe (8-10) Last Admin: 10/03/18 12:07 Dose: 30 mg Ketorolac Tromethamine (Toradol) 15 mg IVP Q6 PRN PRN Reason: Pain, moderate (4-7) Last Admin: 10/03/18 21:50 Dose: 15 mg Levothyroxine Sodium (Synthroid) 88 mcg PO DAILY@0630 [facility] Last Admin: 10/04/18 05:32 Dose: 88 mcg Metformin HCl (Glucophage) 1,000 mg PO BID [facility] Ondansetron HCl (Zofran Inj) 4 mg IVP Q4 PRN PRN Reason: Nausea/Vomiting Last Admin: 10/03/18 19:32 Dose: 4 mg Pantoprazole Sodium (Protonix Ec Tab) 40 mg PO DAILY [facility] [place] Last Admin: 10/04/18 08:42 Dose: 40 mg Trimethoprim/Sulfamethoxazole (Bactrim Ds Tab) 1 tab PO Q12 [facility] [place]; Protocol Zolpidem Tartrate (Ambien) 5 mg PO HS [facility] Last Admin: 10/03/18 21:50 Dose: 5 mg - Labs Labs: 10/04/18 05:50 10/04/18 05:50 PT 12.4 Seconds (9.8-13.1) 10/03/18 03:24 INR 1.1 10/03/18 03:24 APTT 32.9 Seconds (25.6-37.1) 10/03/18 03:24
[2018-10-04] MEDS: Tmp-Smz 800 mg-160 mg DS Tab PO SCH ×2 (11:58→21:27)
[2018-10-04] MEDS ORDERED: Albuterol-Ipratrop 3 mg / 0.5 (3 ml) UD INH PRN (13:09)
--- NOTE | 2018-10-04 13:11 | CP.PCM.PN ---
Subjective - Date & Time of Evaluation Date of Evaluation: 10/04/18 Time of Evaluation: 13:11 - Subjective Subjective: Patient seen and examined this morning, c/o pain, mild relief with medications, no nausea, vomiting. No BM today but passing gasses. Tolerating diet. No acute overnight events. Objective - Vital Signs/Intake and Output Vital Signs (last 24 hours): Temp Pulse Resp BP Pulse Ox 97.8 F 64 20 149/67 90 L 10/04/18 08:21 10/04/18 08:43 10/04/18 08:21 10/04/18 08:43 10/04/18 08:21 - Medications Medications: Current Medications Acetaminophen (Tylenol 325mg Tab) 650 mg PO Q4 PRN PRN Reason: Pain, Mild (1-3) Albuterol (Ventolin Hfa 90 Mcg/Actuation (8 G)) 2 puff INH Q6H [facility] Albuterol/Ipratropium (Duoneb 3 Mg/0.5 Mg (3 Ml) Ud) 3 ml INH RQ6 PRN PRN Reason: Shortness of Breath Amlodipine Besylate (Norvasc) 10 mg PO DAILY [facility] Last Admin: 10/04/18 08:43 Dose: 10 mg Atorvastatin Calcium (Lipitor) 20 mg PO DAILY [facility] Last Admin: 10/04/18 08:42 Dose: 20 mg Clopidogrel Bisulfate (Plavix) 75 mg PO DAILY [facility] Dextrose (Dextrose 50% Inj) 0 ml IV STAT PRN; Protocol PRN Reason: Hypoglycemia Protocol Dextrose (Glutose 15) 0 gm PO ONCE PRN; Protocol PRN Reason: Hypoglycemia Protocol Docusate Sodium (Colace) 100 mg PO BID [facility] Ferrous Sulfate (Feosol) 325 mg PO BID [facility] Last Admin: 10/04/18 08:40 Dose: 325 mg Glucagon (Glucagen Diagnostic Kit) 0 mg IM STAT PRN; Protocol PRN Reason: Hypoglycemia Protocol HCTZ/Losartan Potassium (Hyzaar 12.5 Mg-50 Mg) 2 tab PO DAILY [facility] Last Admin: 10/04/18 08:42 Dose: 2 tab Insulin Detemir (Levemir) 15 units SC HS [facility] Last Admin: 10/03/18 22:04 Dose: 15 units Insulin Human Lispro (Humalog) 7 units SC AC [facility] Last Admin: 10/04/18 11:56 Dose: 7 units Insulin Human Lispro (Humalog) 0 units SC ACCU-CHECK [facility]; Protocol Last Admin: 10/04/18 11:57 Dose: 6 units Ketorolac Tromethamine (Toradol) 30 mg IVP Q6 PRN PRN Reason: Pain, severe (8-10) Last Admin: 10/04/18 11:55 Dose: 30 mg Ketorolac Tromethamine (Toradol) 15 mg IVP Q6 PRN PRN Reason: Pain, moderate (4-7) Last Admin: 10/03/18 21:50 Dose: 15 mg Levothyroxine Sodium (Synthroid) 88 mcg PO DAILY@0630 [facility] Last Admin: 10/04/18 05:32 Dose: 88 mcg Metformin HCl (Glucophage) 1,000 mg PO BID [facility] Ondansetron HCl (Zofran Inj) 4 mg IVP Q4 PRN PRN Reason: Nausea/Vomiting Last Admin: 10/03/18 19:32 Dose: 4 mg Pantoprazole Sodium (Protonix Ec Tab) 40 mg PO DAILY [facility] Last Admin: 10/04/18 08:42 Dose: 40 mg Trimethoprim/Sulfamethoxazole (Bactrim Ds Tab) 1 tab PO Q12 [facility]; Protocol Last Admin: 10/04/18 11:58 Dose: 1 tab Zolpidem Tartrate (Ambien) 5 mg PO HS [facility] Last Admin: 10/03/18 21:50 Dose: 5 mg - Labs Labs: 10/04/18 05:50 10/04/18 05:50 PT 12.4 Seconds (9.8-13.1) 10/03/18 03:24 INR 1.1 10/03/18 03:24 APTT 32.9 Seconds (25.6-37.1) 10/03/18 03:24 - Constitutional Appears: No Acute Distress - Respiratory Exam Respiratory Exam: Wheezes (b/l), NORMAL BREATHING PATTERN. absent: Rales, Rhonchi - Cardiovascular Exam Cardiovascular Exam: REGULAR RHYTHM, +S1, +S2 - GI/Abdominal Exam GI & Abdominal Exam: Soft, Tenderness (periumbilical area and lower quadrants, reduced umbilical hernia noted.), Normal Bowel Sounds. absent: Distended - Extremities Exam Extremities Exam: absent: Calf Tenderness, Pedal Edema - Neurological Exam Neurological Exam: Alert, Awake, Oriented x3 - Skin Skin Exam: Dry, Warm Assessment and Plan - Assessment and Plan (Free Text) Assessment: 78 y/o F with PMHx of CAD /p quad CABG, HTN, HLD, IDDM 2, OA, asthma, anemia, hypothyroidism and multiple abdominal surgeries re-admitted for acute abdominal pain 2/2 abdominal hernia. - CT abdomen: two ventral hernias. The superior epigastric contains stomach with no evidence of obstruction. The inferior incisional hernia contains a small loop of bowel likely causing partial bowel obstruction Plan: Acute abdominal pain 2/2 hernia - tolerating PO - General Surgery on board, recs appreciated - Pain management: Acetaminophen for mild, Toradol for moderate and Morphine for severe. - Zofran 4 mg Q6 PRN for nausea - cardiology consulted - PT/OT IDDM-2 - Uncontrolled - Insulin Lispro sliding scale and Hypoglycemia protocol - Monitor glucose ACHS HTN - Chronic - Resume home meds - Monitor vitals Constipation - Colace 100 mg PO BID Hypothyroidism - Resume synthroid 88 mcg Hx of CAD with CABG - held Plavix for possible elective surgery (pt need be off at least 7 days per surgery recs) HLD - Home meds resumed Anxiety - Home meds resumed, Xanax. DVT prophylaxis - SCDs - ambulation and OOB GI prophylaxis - Pantoprazole 40 mg PO daily Case discussed with Dr Kennedy Hinkle PGY-2
[2018-10-04] MEDS: Albuterol HFA 90 mcg/actuation (8 g) INH SCH ×2 (14:57→20:05)
--- NOTE | 2018-10-04 19:28 | CP.PCM.PCO ---
Addendum Addendum: 10/04/18 19:20 the sign writer letterer or painter was called on this 78 y/o F due to abdominal pain, nausea and vomiting. Pt reports epigastric and lower abdominal pain, feeling nauseous and had 1 vomiting episode at ~5:30pm. Abdomen is mildly distended, tender on lower abdomen, bowel sounds present, no guarding, no rigidity. --Zofran was administered --Will order X-ray abdomen. --Pt reports she does NOT want NGT for now. --NPO ordered --Nurse to contact and inform Gen Surgery team. --Dr Benavides notified.
[2018-10-04] MEDS: Insulin Detemir 100 Units/ml Inj SC SCH (21:28)
[2018-10-05] MEDS: Sodium Chloride 0.9% 1,000 ML IV SCH ×3 (00:50→16:34)
[2018-10-05] MEDS: Albuterol HFA 90 mcg/actuation (8 g) INH SCH ×4 (02:00→18:44)
[2018-10-05] MEDS: Levothyroxine 88 MCG TAB PO SCH (05:35)
[2018-10-05 06:12] LABS: HEMOGLOBIN 10.2 g/dL (12.0-16.0); MEAN CELL VOLUME 85.5 fl (81.0-99.0); MEAN CORPUSCULAR HEMOGLOBIN 27.4 pg (27.0-31.0); MEAN CORPUSCULAR HGB CONC 32.1 g/dL (33.0-37.0); RBC 3.73 Mil/uL (3.80-5.20); RED CELL DISTRIBUTION WIDTH 17.8 % (11.5-14.5); WHITE BLOOD COUNT 9.9 K/uL (4.8-10.8)
[2018-10-05 06:21] LABS: ALBUMIN 3.3 g/dL (3.5-5.0); ALT/SGPT 39 U/L (9-52); AST/SGOT 23 U/L (14-36); BLOOD UREA NITROGEN 24 mg/dl (7-17); CALCIUM 8.5 mg/dL (8.4-10.2); GFR NON-AFRICAN AMERICAN > 60
[2018-10-05] MEDS: Tmp-Smz 800 mg-160 mg DS Tab PO SCH ×2 (09:11→21:46)
[2018-10-05] MEDS: Insulin Lispro (humaLOG) 100 Units/ml Inj SC SCH ×7 (09:16→22:05)
[2018-10-05] MEDS: HCTZ/Losartan 12.5/50 Tab PO SCH (09:17)
[2018-10-05] MEDS: Pantoprazole 40 mg EC Tab PO SCH (09:17)
--- NOTE | 2018-10-05 10:28 | CP.PCM.PN ---
<Magan Barahona - Last Filed: 10/05/18 10:28> Objective - Vital Signs/Intake and Output Vital Signs (last 24 hours): Temp Pulse Resp BP Pulse Ox 97.8 F 61 20 135/63 94 L 10/05/18 08:46 10/05/18 09:17 10/05/18 08:46 10/05/18 09:17 10/05/18 08:46 - Medications Medications: Current Medications Acetaminophen (Tylenol 325mg Tab) 650 mg PO Q4 PRN PRN Reason: Pain, Mild (1-3) Albuterol (Ventolin Hfa 90 Mcg/Actuation (8 G)) 2 puff INH Q6H [facility] Last Admin: 10/05/18 09:18 Dose: 2 puff Albuterol/Ipratropium (Duoneb 3 Mg/0.5 Mg (3 Ml) Ud) 3 ml INH RQ6 PRN PRN Reason: Shortness of Breath Amlodipine Besylate (Norvasc) 10 mg PO DAILY [facility] Last Admin: 10/05/18 09:17 Dose: 10 mg Atorvastatin Calcium (Lipitor) 20 mg PO DAILY [facility] Last Admin: 10/05/18 09:17 Dose: 20 mg Clopidogrel Bisulfate (Plavix) 75 mg PO DAILY [facility] Dextrose (Dextrose 50% Inj) 0 ml IV STAT PRN; Protocol PRN Reason: Hypoglycemia Protocol Dextrose (Glutose 15) 0 gm PO ONCE PRN; Protocol PRN Reason: Hypoglycemia Protocol Docusate Sodium (Colace) 100 mg PO BID [facility] Last Admin: 10/05/18 09:11 Dose: 100 mg Ferrous Sulfate (Feosol) 325 mg PO BID [facility] Last Admin: 10/05/18 09:11 Dose: 325 mg Glucagon (Glucagen Diagnostic Kit) 0 mg IM STAT PRN; Protocol PRN Reason: Hypoglycemia Protocol HCTZ/Losartan Potassium (Hyzaar 12.5 Mg-50 Mg) 2 tab PO DAILY [facility] Last Admin: 10/05/18 09:17 Dose: 2 tab Hydralazine HCl (Apresoline) 25 mg PO TID [facility] Last Admin: 10/05/18 09:10 Dose: 25 mg Sodium Chloride (Sodium Chloride 0.9%) 1,000 mls @ 125 mls/hr IV .Q8H [facility] Stop: 10/06/18 00:28 Last Admin: 10/05/18 09:05 Dose: 125 mls/hr Insulin Detemir (Levemir) 15 units SC HS [facility] Last Admin: 10/04/18 21:28 Dose: 15 units Insulin Human Lispro (Humalog) 7 units SC AC [facility] Last Admin: 10/05/18 09:16 Dose: 7 units Insulin Human Lispro (Humalog) 0 units SC ACCU-CHECK [facility]; Protocol Last Admin: 10/05/18 09:16 Dose: 2 units Ketorolac Tromethamine (Toradol) 30 mg IVP Q6 PRN PRN Reason: Pain, severe (8-10) Last Admin: 10/04/18 17:01 Dose: 30 mg Ketorolac Tromethamine (Toradol) 15 mg IVP Q6 PRN PRN Reason: Pain, moderate (4-7) Last Admin: 10/03/18 21:50 Dose: 15 mg Levothyroxine Sodium (Synthroid) 88 mcg PO DAILY@0630 [facility] Last Admin: 10/05/18 05:35 Dose: 88 mcg Metformin HCl (Glucophage) 1,000 mg PO BID [facility] Ondansetron HCl (Zofran Inj) 4 mg IVP Q4 PRN PRN Reason: Nausea/Vomiting Last Admin: 10/04/18 17:44 Dose: 4 mg Pantoprazole Sodium (Protonix Ec Tab) 40 mg PO DAILY [facility] Last Admin: 10/05/18 09:17 Dose: 40 mg Trimethoprim/Sulfamethoxazole (Bactrim Ds Tab) 1 tab PO Q12 [facility]; Protocol Last Admin: 10/05/18 09:11 Dose: 1 tab Zolpidem Tartrate (Ambien) 5 mg PO [facility] Last Admin: 10/04/18 21:32 Dose: 5 mg - Labs Labs: 10/05/18 05:57 10/05/18 05:57 PT 12.4 Seconds (9.8-13.1) 10/03/18 03:24 INR 1.1 10/03/18 03:24 APTT 32.9 Seconds (25.6-37.1) 10/03/18 03:24 <Brian Joe - Last Filed: 10/05/18 11:33> Subjective - Date & Time of Evaluation Date of Evaluation: 10/05/18 Time of Evaluation: 11:28 - Subjective Subjective: pt seen and examined at bedside, resting comfortably. Pts discharged held due to an episode of vomiting yesterday. pt states she ate a hamburger and felt it got stuck in her stomach. Pt currently denies any abdominal discomfort, no nausea or vomiting. Pt continues to pass flatus and have BM. PE AVSS Gen: awake, alert, NAD HEENT: NC/AT, EOMI no acute respiratory distress abd: soft, obese, ND, no discomfort on deep palpation, no peritoneal signs 78yo F with chronic incisional hernias -pain control -recommend to advance diet as tolerated to soft GI diet -pt will need elective repair given her medical history needs to have cardiac clearance and needs to be off plavix minimum of 7 days Objective - Vital Signs/Intake and Output Vital Signs (last 24 hours): Temp Pulse Resp BP Pulse Ox 97.8 F 61 20 135/63 94 L 10/05/18 08:46 10/05/18 09:17 10/05/18 08:46 10/05/18 09:17 10/05/18 08:46 - Medications Medications: Current Medications Acetaminophen (Tylenol 325mg Tab) 650 mg PO Q4 PRN PRN Reason: Pain, Mild (1-3) Albuterol (Ventolin Hfa 90 Mcg/Actuation (8 G)) 2 puff INH Q6H [facility] Last Admin: 10/05/18 09:18 Dose: 2 puff Albuterol/Ipratropium (Duoneb 3 Mg/0.5 Mg (3 Ml) Ud) 3 ml INH RQ6 PRN PRN Reason: Shortness of Breath Amlodipine Besylate (Norvasc) 10 mg PO DAILY [facility] Last Admin: 10/05/18 09:17 Dose: 10 mg Atorvastatin Calcium (Lipitor) 20 mg PO DAILY [facility] Last Admin: 10/05/18 09:17 Dose: 20 mg Clopidogrel Bisulfate (Plavix) 75 mg PO DAILY [facility] Dextrose (Dextrose 50% Inj) 0 ml IV STAT PRN; Protocol PRN Reason: Hypoglycemia Protocol Dextrose (Glutose 15) 0 gm PO ONCE PRN; Protocol PRN Reason: Hypoglycemia Protocol Docusate Sodium (Colace) 100 mg PO BID [facility] Last Admin: 10/05/18 09:11 Dose: 100 mg Ferrous Sulfate (Feosol) 325 mg PO BID [facility] Last Admin: 10/05/18 09:11 Dose: 325 mg Glucagon (Glucagen Diagnostic Kit) 0 mg IM STAT PRN; Protocol PRN Reason: Hypoglycemia Protocol HCTZ/Losartan Potassium (Hyzaar 12.5 Mg-50 Mg) 2 tab PO DAILY [facility] Last Admin: 10/05/18 09:17 Dose: 2 tab Hydralazine HCl (Apresoline) 25 mg PO TID [facility] Last Admin: 10/05/18 09:10 Dose: 25 mg Sodium Chloride (Sodium Chloride 0.9%) 1,000 mls @ 125 mls/hr IV .Q8H [facility] Stop: 10/06/18 00:28 Last Admin: 10/05/18 09:05 Dose: 125 mls/hr Insulin Detemir (Levemir) 15 units SC HS [facility] Last Admin: 10/04/18 21:28 Dose: 15 units Insulin Human Lispro (Humalog) 7 units SC AC [facility] Last Admin: 10/05/18 09:16 Dose: 7 units Insulin Human Lispro (Humalog) 0 units SC ACCU-CHECK [facility]; Protocol Last Admin: 10/05/18 09:16 Dose: 2 units Ketorolac Tromethamine (Toradol) 30 mg IVP Q6 PRN PRN Reason: Pain, severe (8-10) Last Admin: 10/04/18 17:01 Dose: 30 mg Ketorolac Tromethamine (Toradol) 15 mg IVP Q6 PRN PRN Reason: Pain, moderate (4-7) Last Admin: 10/03/18 21:50 Dose: 15 mg Lactulose (Enulose) 20 gm PO ONCE ONE Stop: 10/05/18 11:11 Levothyroxine Sodium (Synthroid) 88 mcg PO DAILY@0630 [facility] Last Admin: 10/05/18 05:35 Dose: 88 mcg Metformin HCl (Glucophage) 1,000 mg PO BID [facility] Ondansetron HCl (Zofran Inj) 4 mg IVP Q4 PRN PRN Reason: Nausea/Vomiting Last Admin: 10/04/18 17:44 Dose: 4 mg Pantoprazole Sodium (Protonix Ec Tab) 40 mg PO DAILY [facility] Last Admin: 10/05/18 09:17 Dose: 40 mg Trimethoprim/Sulfamethoxazole (Bactrim Ds Tab) 1 tab PO Q12 [facility]; Protocol Last Admin: 10/05/18 09:11 Dose: 1 tab Zolpidem Tartrate (Ambien) 5 mg PO HS [facility] Last Admin: 10/04/18 21:32 Dose: 5 mg - Labs Labs: 10/05/18 05:57 10/05/18 05:57 PT 12.4 Seconds (9.8-13.1) 10/03/18 03:24 INR 1.1 10/03/18 03:24 APTT 32.9 Seconds (25.6-37.1) 10/03/18 03:24
--- NOTE | 2018-10-05 11:36 | RAD ---
Date of service: 10/04/2018 HISTORY: Nausea, small-bowel obstruction suspected. COMPARISON: 10/03/2018. TECHNIQUE: 1 view obtained. FINDINGS: BOWEL: Decrease in dilatation of colon compared to the prior study. Contrast in nondistended colon from prior CT of the abdomen and pelvis performed 10/01/2018. BONES: Normal. OTHER FINDINGS: None. IMPRESSION: Normal caliber colon and small bowel. No acute findings. No visible free air.
--- NOTE | 2018-10-05 13:32 | CP.PCM.PN ---
Subjective - Date & Time of Evaluation Date of Evaluation: 10/05/18 Time of Evaluation: 08:36 - Subjective Subjective: Patient seen and examined at bedside, feeling better this morning, endorsed by [facility] resident pt had one episode of vomiting and abd pain last evening. Patient states she ate a piece of hamburger before sx. She currently denies abdominal pain, nausea or vomiting. Had BM. Denies urinary sx. Objective - Vital Signs/Intake and Output Vital Signs (last 24 hours): Temp Pulse Resp BP Pulse Ox 97.8 F 63 20 119/68 94 L 10/05/18 08:46 10/05/18 12:47 10/05/18 08:46 10/05/18 12:47 10/05/18 08:46 - Medications Medications: Current Medications Acetaminophen (Tylenol 325mg Tab) 650 mg PO Q4 PRN PRN Reason: Pain, Mild (1-3) Albuterol (Ventolin Hfa 90 Mcg/Actuation (8 G)) 2 puff INH Q6H [facility] Last Admin: 10/05/18 12:49 Dose: 2 puff Albuterol/Ipratropium (Duoneb 3 Mg/0.5 Mg (3 Ml) Ud) 3 ml INH RQ6 PRN PRN Reason: Shortness of Breath Amlodipine Besylate (Norvasc) 10 mg PO DAILY [facility] Last Admin: 10/05/18 09:17 Dose: 10 mg Atorvastatin Calcium (Lipitor) 20 mg PO DAILY [facility] Last Admin: 10/05/18 09:17 Dose: 20 mg Clopidogrel Bisulfate (Plavix) 75 mg PO DAILY [facility] Dextrose (Dextrose 50% Inj) 0 ml IV STAT PRN; Protocol PRN Reason: Hypoglycemia Protocol Dextrose (Glutose 15) 0 gm PO ONCE PRN; Protocol PRN Reason: Hypoglycemia Protocol Docusate Sodium (Colace) 100 mg PO BID [facility] Last Admin: 10/05/18 09:11 Dose: 100 mg Ferrous Sulfate (Feosol) 325 mg PO BID [facility] Last Admin: 10/05/18 09:11 Dose: 325 mg Glucagon (Glucagen Diagnostic Kit) 0 mg IM STAT PRN; Protocol PRN Reason: Hypoglycemia Protocol HCTZ/Losartan Potassium (Hyzaar 12.5 Mg-50 Mg) 2 tab PO DAILY [facility] Last Admin: 10/05/18 09:17 Dose: 2 tab Hydralazine HCl (Apresoline) 25 mg PO TID [facility] Last Admin: 10/05/18 12:47 Dose: 25 mg Sodium Chloride (Sodium Chloride 0.9%) 1,000 mls @ 125 mls/hr IV .Q8H [facility] Stop: 10/06/18 00:28 Last Admin: 10/05/18 09:05 Dose: 125 mls/hr Insulin Detemir (Levemir) 15 units SC HS [facility] Last Admin: 10/04/18 21:28 Dose: 15 units Insulin Human Lispro (Humalog) 7 units SC AC [facility] Last Admin: 10/05/18 12:48 Dose: 7 units Insulin Human Lispro (Humalog) 0 units SC ACCU-CHECK [facility]; Protocol Last Admin: 10/05/18 12:48 Dose: 6 units Ketorolac Tromethamine (Toradol) 30 mg IVP Q6 PRN PRN Reason: Pain, severe (8-10) Last Admin: 10/04/18 17:01 Dose: 30 mg Ketorolac Tromethamine (Toradol) 15 mg IVP Q6 PRN PRN Reason: Pain, moderate (4-7) Last Admin: 10/03/18 21:50 Dose: 15 mg Levothyroxine Sodium (Synthroid) 88 mcg PO DAILY@0630 [facility] Last Admin: 10/05/18 05:35 Dose: 88 mcg Metformin HCl (Glucophage) 1,000 mg PO BID [facility] Ondansetron HCl (Zofran Inj) 4 mg IVP Q4 PRN PRN Reason: Nausea/Vomiting Last Admin: 10/04/18 17:44 Dose: 4 mg Pantoprazole Sodium (Protonix Ec Tab) 40 mg PO DAILY [facility] Last Admin: 10/05/18 09:17 Dose: 40 mg Trimethoprim/Sulfamethoxazole (Bactrim Ds Tab) 1 tab PO Q12 [facility]; Protocol Last Admin: 10/05/18 09:11 Dose: 1 tab Zolpidem Tartrate (Ambien) 5 mg PO [facility] Last Admin: 10/04/18 21:32 Dose: 5 mg - Labs Labs: 10/05/18 05:57 10/05/18 05:57 PT 12.4 Seconds (9.8-13.1) 10/03/18 03:24 INR 1.1 10/03/18 03:24 APTT 32.9 Seconds (25.6-37.1) 10/03/18 03:24 - Constitutional Appears: No Acute Distress - Head Exam Head Exam: NORMAL INSPECTION - Respiratory Exam Respiratory Exam: Clear to Ausculation Bilateral, NORMAL BREATHING PATTERN - Cardiovascular Exam Cardiovascular Exam: REGULAR RHYTHM, +S1, +S2. absent: Tachycardia - GI/Abdominal Exam GI & Abdominal Exam: Soft, Tenderness (on deep palpation mild in lower quadrants ), Normal Bowel Sounds - Extremities Exam Extremities Exam: absent: Pedal Edema - Neurological Exam Neurological Exam: Alert, Awake, Oriented x3 - Skin Skin Exam: Dry, Warm Assessment and Plan - Assessment and Plan (Free Text) Assessment: 78 y/o F with PMHx of CAD /p quad CABG, HTN, HLD, IDDM 2, OA, asthma, anemia, hypothyroidism and multiple abdominal surgeries re-admitted for acute abdominal pain 2/2 abdominal hernia. - CT abdomen: two ventral hernias. The superior epigastric contains stomach with no evidence of obstruction. The inferior incisional hernia contains a small loop of bowel likely causing partial bowel obstruction Plan: Acute abdominal pain 2/2 hernia - General Surgery on board, recs appreciated - tolerating PO - Pain management: Acetaminophen for mild, Toradol for moderate and Morphine for severe. - Zofran 4 mg Q6 PRN for nausea - cardiology consulted, need preop clearance - PT/OT UTI - UA positive nitrate - asymptomatic, afebrile, no leukocytosis - urine culture, f/u results - c/w Bactrim PO q12h IDDM-2 - Uncontrolled - Insulin Lispro sliding scale and Hypoglycemia protocol - Monitor glucose ACHS HTN - Chronic, on the high side - added hydralazine 25mg TID - c/w home meds - Monitor vitals Constipation - Colace 100 mg PO BID Hypothyroidism - Resume synthroid 88 mcg Hx of CAD with CABG - held Plavix for possible elective surgery (pt need be off at least 7 days per surgery recs) HLD - Home meds resumed Anxiety - Home meds resumed, Xanax. DVT prophylaxis - SCDs - ambulation and OOB GI prophylaxis - Pantoprazole 40 mg PO daily Case discussed with Dr Kennedy Hinkle PGY-2
[2018-10-05] MEDS: Lactobacillus Acidophilus 500 MU Cap PO SCH (16:15)
[2018-10-05] MEDS: Insulin Detemir 100 Units/ml Inj SC SCH (22:07)
[2018-10-05 23:32] VITALS: O2SAT 96
[2018-10-06] MEDS: Albuterol HFA 90 mcg/actuation (8 g) INH SCH ×3 (01:05→17:25)
[2018-10-06 06:14] LABS: HEMOGLOBIN 9.7 g/dL (12.0-16.0); MEAN CELL VOLUME 86.5 fl (81.0-99.0); MEAN CORPUSCULAR HGB CONC 32.3 g/dL (33.0-37.0); RBC 3.48 Mil/uL (3.80-5.20); RED CELL DISTRIBUTION WIDTH 17.9 % (11.5-14.5)
[2018-10-06] MEDS: Levothyroxine 88 MCG TAB PO SCH (06:27)
[2018-10-06 06:53] LABS: ALBUMIN 3.2 g/dL (3.5-5.0); ALT/SGPT 33 U/L (9-52); AST/SGOT 20 U/L (14-36); BLOOD UREA NITROGEN 19 mg/dl (7-17); CALCIUM 8.6 mg/dL (8.4-10.2); GFR NON-AFRICAN AMERICAN > 60
[2018-10-06 09:00] VITALS: RESP 18; TEMP 97.4
[2018-10-06] MEDS: Tmp-Smz 800 mg-160 mg DS Tab PO SCH (09:43)
[2018-10-06] MEDS: Insulin Lispro (humaLOG) 100 Units/ml Inj SC SCH ×6 (09:44→17:24)
[2018-10-06] MEDS: HCTZ/Losartan 12.5/50 Tab PO SCH (09:45)
[2018-10-06] MEDS: Pantoprazole 40 mg EC Tab PO SCH (09:46)
[2018-10-06] MEDS: Lactobacillus Acidophilus 500 MU Cap PO SCH ×2 (09:49→17:22)
--- NOTE | 2018-10-06 12:46 | CP.PCM.DIS ---
Provider - Provider Date of Admission: 10/04/18 17:14 Attending physician: Tera Herman Primary care physician: David Benavides MD Consults: 10/03/18 04:04 General Surgery Consult Routine Comment: Consulting Provider: Riaz Cadet Consulting Physician: Riaz Cadet Reason for Consult: Abdominal hernia, Hx of partial SBO 10/03/18 13:00 Cardiology Consult Routine Comment: Consulting Provider: Moncho Lopez Consulting Physician: Moncho Lopez Reason for Consult: preop clearance Time Spent in preparation of Discharge (in minutes): 37 Diagnosis - Discharge Diagnosis (1) Abdominal pain Status: Acute (2) Abdominal wall hernia Status: Acute (3) Diastolic heart failure Status: Acute (4) Diabetes mellitus Status: Chronic (5) Hypertension Status: Chronic Hospital Course - Lab Results Lab Results: Micro Results 10/05/18 08:59 Urine Random Urine Culture - Preliminary Gram Negative Sourav Most Recent Lab Values WBC 9.0 K/uL (4.8-10.8) 10/06/18 05:40 RBC 3.48 Mil/uL (3.80-5.20) L 10/06/18 05:40 Hgb 9.7 g/dL (12.0-16.0) L 10/06/18 05:40 Hct 30.1 % (34.0-47.0) L 10/06/18 05:40 MCV 86.5 fl (81.0-99.0) 10/06/18 05:40 MCH 28.0 pg (27.0-31.0) 10/06/18 05:40 MCHC 32.3 g/dL (33.0-37.0) L 10/06/18 05:40 RDW 17.9 % (11.5-14.5) H 10/06/18 05:40 Plt Count 324 K/uL (130-400) 10/06/18 05:40 MPV 8.0 fl (7.2-11.7) 10/03/18 06:10 Neut % (Auto) 70.4 % (50.0-75.0) 10/03/18 06:10 Lymph % (Auto) 19.4 % (20.0-40.0) L 10/03/18 06:10 [place] % (Auto) 7.8 % (0.0-10.0) 10/03/18 06:10 Eos % (Auto) 1.8 % (0.0-4.0) 10/03/18 06:10 Baso % (Auto) 0.6 % (0.0-2.0) 10/03/18 06:10 Neut # (Auto) 6.3 K/uL (1.8-7.0) 10/03/18 06:10 Lymph # (Auto) 1.7 K/uL (1.0-4.3) 10/03/18 06:10 [place] # (Auto) 0.7 K/uL (0.0-0.8) 10/03/18 06:10 Eos # (Auto) 0.2 K/uL (0.0-0.7) 10/03/18 06:10 Baso # (Auto) 0.1 K/uL (0.0-0.2) 10/03/18 06:10 PT 12.4 Seconds (9.8-13.1) 10/03/18 03:24 INR 1.1 10/03/18 03:24 APTT 32.9 Seconds (25.6-37.1) 10/03/18 03:24 Sodium 140 mmol/l (132-148) 10/06/18 05:40 Potassium 4.1 MMOL/L (3.6-5.0) 10/06/18 05:40 Chloride 105 mmol/L (98-107) 10/06/18 05:40 Carbon Dioxide 27 mmol/L (22-30) 10/06/18 05:40 Anion Gap 12 (10-20) 10/06/18 05:40 BUN 19 mg/dl (7-17) H 10/06/18 05:40 Creatinine 0.9 mg/dl (0.7-1.2) 10/06/18 05:40 Est GFR ( Amer) > 60 10/06/18 05:40 Est GFR (Non-Af Amer) > 60 10/06/18 05:40 POC Glucose (mg/dL) 302 mg/dL (65-110) H 10/06/18 11:22 Random Glucose 188 mg/dL (65-105) H 10/06/18 05:40 Lactic Acid 0.9 mmol/L (0.7-2.1) 10/03/18 08:00 Calcium 8.6 mg/dL (8.4-10.2) 10/06/18 05:40 Phosphorus 3.5 mg/dl (2.5-4.5) 10/03/18 06:10 Magnesium 1.7 MG/DL (1.6-2.3) 10/03/18 06:10 Total Bilirubin 0.2 mg/dl (0.2-1.3) 10/06/18 05:40 AST 20 U/L (14-36) 10/06/18 05:40 ALT 33 U/L (9-52) 10/06/18 05:40 Alkaline Phosphatase 105 U/L (38-126) 10/06/18 05:40 Total Protein 6.3 G/DL (6.3-8.2) 10/06/18 05:40 Albumin 3.2 g/dL (3.5-5.0) L 10/06/18 05:40 Globulin 3.1 gm/dL (2.2-3.9) 10/06/18 05:40 Albumin/Globulin Ratio 1.0 (1.0-2.1) 10/06/18 05:40 Lipase 13 U/L (23-300) L 10/03/18 06:10 Urine Color Yellow (YELLOW) 10/03/18 06:30 Urine Clarity Slighty-cloudy (Clear) 10/03/18 06:30 Urine pH 6.0 (5.0-8.0) 10/03/18 06:30 Ur Specific [place] 1.010 (1.003-1.030) 10/03/18 06:30 Urine Protein Negative mg/dL (NEGATIVE) 10/03/18 06:30 Urine Glucose (UA) Neg mg/dL (NEGATIVE) 10/03/18 06:30 Urine Ketones Negative mg/dL (NEGATIVE) 10/03/18 06:30 Urine Blood Small (NEGATIVE) 10/03/18 06:30 Urine Nitrate Positive (NEGATIVE) H 10/03/18 06:30 Urine Bilirubin Negative (NEGATIVE) 10/03/18 06:30 Urine Urobilinogen 2.0 mg/dL (0.2-1.0) H 10/03/18 06:30 Ur Leukocyte Esterase Trace Di/uL (Negative) 10/03/18 06:30 Urine RBC (Auto) 2 /hpf (0-3) 10/03/18 06:30 Urine Microscopic WBC 7 /hpf (0-5) H 10/03/18 06:30 Ur Squamous Epith Cells < 1 /hpf (0-5) 10/03/18 06:30 Urine Bacteria Rare (<OCC) 10/03/18 06:30 - Hospital Course Hospital Course: 78 y/o F with PMHx of CAD /p quad CABG, HTN, HLD, IDDM 2, OA, asthma, anemia, hypothyroidism and multiple abdominal surgeries admitted for evaluation and management of abdominal pain, 04/19, throbbing, right lower quadrant and midline in epigastric area. Pain has been accompanied by nausea, back pain but patient denies vomiting. Patient does take colace BID for constipation. Patient reports having multiple abdominal surgeries including but not limited to hernia repair, ex-lap for SBO and cholecystectomy. CT in ED demonstrated two ventral hernias. The superior epigastric contains stomach with no evidence of obstruction. The inferior incisional hernia contains a small loop of bowel likely causing partial bowel obstruction. Patient evaluated by Surgery who recommends elective surgical intervention with Cardiology clearance due to h/o CAD s/p CABG. Patient admitted for observation and pain management and IV fluids, admission complicated with UTI, started oc Bactrim BID, patient tolerated diet and abd pain is improved at discharge time. Patient stable for discharge with instructions of f/u outpatient with Dr. Hall for elective hernia management. Bactrim Rx provided and instructed to complete 7 days of treatment. Patient to f/u with PCP next week. Discharge Exam - Head Exam Head Exam: NORMAL INSPECTION - Respiratory Exam Respiratory Exam: Clear to PA & Lateral, NORMAL BREATHING PATTERN - Cardiovascular Exam Cardiovascular Exam: REGULAR RHYTHM, +S1, +S2 - GI/Abdominal Exam GI & Abdominal Exam: Hernia (Umbilical, reduced), Normal Bowel Sounds, Tenderness (mild tender on periumbilical area). absent: Distended - Neurological Exam Neurological exam: Alert, CN II-XII Intact, Oriented x3 - Skin Skin Exam: Dry, Warm Discharge Plan - Discharge Medications Prescriptions: amLODIPine [Norvasc] 10 mg PO DAILY 30 Days #30 tab Dicyclomine [Dicyclomine HCl] 10 mg PO QID 7 Days #28 cap Docusate [Colace] 100 mg PO Q12 30 Days #60 cap Simethicone [Mylicon Chew Tab] 80 mg PO QID 14 Days #56 ctb Sulfamethoxazole/Trimethoprim [Bactrim DS Tab] 1 tab PO Q12 5 Days #10 tab - Follow Up Plan Condition: STABLE Disposition: HOME/ ROUTINE Instructions: Abdominal Hernia (DC), Small Bowel Obstruction (DC) Additional Instructions: hacer david con olguin doctor primario dentro de 1 semana Referrals: Abdoulaye Hall MD [Staff Provider] - David Benavides MD [Primary Care Provider] -
[2018-10-06 12:49] VITALS: BP 147/63; PULSE 65
== END 2018-10-06 18:33 | disposition home or self-care (01) | DRG 394 ==
LOC: H.ER 02:27 → H.ERHOLD 03:03 → H.MEDSURG1 05:02 → OBSVTOIN 10-04 17:14
PROVIDERS: ADMIT Internal Medicine; ATTEND Internal Medicine
DX: K40.30 Unilateral inguinal hernia, with obstruction, without gangrene, not specified as recurrent (principal); I50.30 Unspecified diastolic (congestive) heart failure; N39.0 Urinary tract infection, site not specified; I25.10 Atherosclerotic heart disease of native coronary artery without angina pectoris; J44.9 Chronic obstructive pulmonary disease, unspecified; I49.9 Cardiac arrhythmia, unspecified; E11.9 Type 2 diabetes mellitus without complications; Z95.1 Presence of aortocoronary bypass graft; Z90.49 Acquired absence of other specified parts of digestive tract; E03.9 Hypothyroidism, unspecified; E78.5 Hyperlipidemia, unspecified; D64.9 Anemia, unspecified; J45.40 Moderate persistent asthma, uncomplicated; Z79.02 Long term (current) use of antithrombotics/antiplatelets; Z79.4 Long term (current) use of insulin; Z79.890 Hormone replacement therapy; Z87.891 Personal history of nicotine dependence; I11.0 Hypertensive heart disease with heart failure; K59.00 Constipation, unspecified